=== PATIENT | female | born 1980 | race Caucasian/White ===

== ENCOUNTER 2024-08-06 17:55 | Emergency (ER) | payer OTHER, SELFPAY ==
[2024-08-06 18:12] VITALS: BP 116/64; PULSE 80; RESP 16; TEMP 37.2; O2SAT 100
--- NOTE | 2024-08-06 18:12 | ED.URI ---
HPI - URI/Sore Throat General Chief Complaint: Upper Respiratory Infection Stated Complaint: Chest Tightness, Cough, No Voice Time Seen by Provider: 08/06/24 18:12 Source: patient Mode of arrival: ambulatory Limitations: no limitations History of Present Illness HPI Narrative: 44-year-old female presented for complaint of cough and chest congestion and tightness with cough for 2 days. She also states she lost her voice yesterday. Endorses 2 weeks of nasal congestion and drainage, which she says is improving. Denies sob, wheezing, n/v/d/f/c. Taking Dayquil. Reports exposure to strep and covid. Related Data Home Medications ?Medication ?Instructions ?Recorded ?Confirmed ?Last Taken ?Type plecanatide 3 mg tablet (Trulance) mg 08/06/24 Unknown History semaglutide (weight loss) 2.4 mg subcut 08/06/24 Unknown History mg/0.75 mL subcutaneous pen injector (Wegovy) Allergies Allergy/AdvReac Type Severity Reaction Status Date / Time Penicillins Allergy Mild Hives Verified 08/06/24 18:20 Review of Systems Review of Systems: CONSTITUTIONAL: Denies body aches, fever, chills, or sweats. EYES: Denies visual changes, redness, or discharge. ENT: reports rhinorrhea, congestion, sore throat, otalgia. CARDIOVASCULAR: Denies chest pain, palpitations, or edema. RESPIRATORY: Reports cough, denies sob, wheezing. GASTROINTESTINAL: Denies abdominal pain, nausea, vomiting, or diarrhea. MUSCULOSKELETAL: Denies back pain, joint pain, or myalgia. NEUROLOGIC: Denies headache, numbness, tingling, or weakness. PSYCH: Denies depression or anxiety. All systems reviewed & are unremarkable except as noted in HPI and below PMFSH Comments At time of signature, I have reviewed and agree with nursing past medical, surgical, social and family history unless otherwise noted. Please see nursing chart for further information. There is no relevant family history pertinent to the presenting complaint Exam Narrative: GENERAL: Well-appearing, in no acute distress. EYES: EOMI. No redness or drainage. Conjunctivae normal. ENT: Mucous membranes pink and moist. No rhinorrhea. Hoarse voice. TMs normal bilaterally. Throat normal, tonsils absent. Uvula midline. NECK: Normal AROM. Supple. CHEST: No respiratory distress. Lungs clear to all oswald. HEART: Regular rate and rhythm. No murmur appreciated. ABDOMEN: Soft, nontender, nondistended, normal active bowel sounds. SKIN: Warm, dry, Capillary refill normal. Normal skin turgor. NEURO: Alert and oriented x3. Gait steady. Course Course Emergency Course: Patient is aware of diagnosis, understands and agrees to treatment plan. Anticipatory guidance given. Patient agrees to follow-up as directed and is aware of reasons to seek care at the emergency department. Portions of this record may have been created with voice recognition software Level of Care: Express Care Visit Vital Signs Vital signs: Vital Signs Temperature 98.9 F 08/06/24 18:12 Pulse Rate 80 08/06/24 18:12 Respiratory Rate 16 08/06/24 18:12 Blood Pressure 116/64 08/06/24 18:12 Pulse Oximetry 100 08/06/24 18:12 Temperature 98.9 F 08/06/24 18:12 Pulse Rate 80 08/06/24 18:12 Respiratory Rate 16 08/06/24 18:12 Blood Pressure 116/64 08/06/24 18:12 Pulse Oximetry 100 08/06/24 18:12 MDM - URI/Sore Throat MDM Narrative Medical decision making narrative: Discussed physical exam findings; neg flu, covid and strep. Advised supportive measures and signs/symptoms to go to the ER. Pt is appropriate for outpt treatment and f/u. Differential Diagnosis Differential diagnosis: Likely upper respiratory infection, otitis media, sinusitis, viral infection, bronchitis, influenza and pharyngitis Discharge Plan Discharge Clinical Impression: Upper respiratory infection Patient Disposition: Home, Self-Care Condition: Stable Instructions: Antibiotic Form Additional Instructions: Flu and COVID negative. Rapid strep swab was negative today You will be notified in a few days if the culture comes back positive for strep, and appropriate antibiotics will be called in at that time. if symptoms are due to a viral illness, it is not treated with antibiotics. Viral symptoms can be present for up to 10-14 days. Recommend Flonase spray and Zyrtec for sinus congestion Cough syrup may cause drowsiness; avoid driving or take it at night time. Tylenol every 8 hours as needed for pain/fever Soft foods, cool liquids, warm tea. Gargle with warm saltwater twice a day. Chloraseptic spray and throat lozenges. Rest and stay hydrated. --Follow up with your PCP --Go to the ER immediately if you cannot swallow your saliva, trouble breathing/wheezing, throat swelling, pain is persistent and severe Patient Language: Vietnamese Prescriptions: New methylprednisolone [Medrol (Hussein)] 4 mg tablets,dose pack See Rx Instructions .ROUTE .COMPLEX Qty: 21 0RF Rx Instructions: orally per package directions No Action Trulance 3 mg tablet Wegovy 2.4 mg/0.75 mL pen injector SUBCUT Follow-up/Referrals: Jose,MD Lei [Primary Care Provider] -
[2024-08-06 18:42] LABS: EDCOVIDSCREEN Negative (Negative); EDINFLUASCREEN Negative (Negative); EDINFLUBSCREEN Negative (Negative); EDSTREPNEGPOS1 Negative (Negative)
--- OUTSIDE RECORDS SUMMARY | 2024-08-13 22:21 | XMS_ITS | Continuity of Care Document ---
Author Organization [place] - [facility], [facility] Address [address] [place] [address] Care Team Providers Care Home Demonstrator Name Role Phone LEI GARCIA Primary Care Provider Assessment No assessment recorded. Plan of Treatment Reminders Order Date Submit Date Provider Last Modified By Organization Details Last Modified Time Details Appointments Follow Up 15 2024 11:00A Sid Garcia MD Not available Not available Not available Lab pap, IG + HR HPV [address] ([facility]), [address] [place], [address], 07/21/2024 09:15:31 Referral None recorded. Procedures None recorded. Surgeries None recorded. Imaging MAMMO, screening , digital, bilateral - Please call pt to schedule 2023 024 [facility], [address] [place], [address], 07/14/2024 15:28:44 Medication Orders None recorded. Patient TargetsNo targets recorded. Patient InstructionsNo instructions recorded. Reason for Referral None Reported. 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 Active 2021 Not Available [facility] 3 01:24:35 Chronic idiopathic constipation 83439712 Active 2021 Not Available [facility] 3 01:24:35 Fatigue 92163413 Active 2022 Lei Garcia MD [address], [place], [address] , [employer] [facility] [employer] [facility] 3 10:45:01 Sleep apnea 76744717 Active 2022 Lei Garcia MD [address], [place], [address] , [employer] [facility] 3 10:09:41 Overweight 003544066 Active 2023 Lei Garcia MD [address], [place], [address] , [employer] [facility] 4 11:39:42 Fracture of foot 16826901 Active 2023 Lei Garcia MD [address], [place], [address] , [employer] [facility] 4 10:40:11 Obesity 868721189 Active 2023 Lei Garcia MD [address], [place], [address] , [employer] [facility] 4 11:43:45 Recurrent skin infection 741124355 Active 2023 Lei Garcia MD [address], [place], [address] , [employer] [facility] 4 11:52:24 Dysmenorrhea 950538366 Active 2023 MABEL Cortes [address] [facility], [facility] [address], [place], [address] , [facility] [employer] [facility] 4 10:23:29 Problem Notes None recorded. Procedures Surgical History Date Name Laterality Status Provider Name and Address Organization Details Recorded Time 07/22/20 TONSILLECTOMY (SURG) completed Not Available [facility] 10/08/2022 01:26:17 07/09/20 22 Date of Last Mammogram completed Lei Garcia MD [address] [facility], [facility] [address], [place], [address], [facility] [employer] [facility] 05/04/2023 10:44:22 08/09/19 12 Gastric Bypass completed Not Available [facility] 10/08 01:23:33 08/09/19 04 Gallbladder Surgery completed Not Available [facility] 10/08/2022 01:23:33 Imaging Results None recorded. Procedure Notes None recorded. Medical Equipment None Reported. Allergies Allergen ID Allergen Name Allergen Category Reaction Reaction Severity Criticality Documentation Date Start Date Code Code System Note Provider Name and Address Organization Details Recorded Time 74464 Wellbutri n medicatio n rash severe Not available 10/08/2022 10128 RxNorm Not Available [facility] 3 01:26:09 78567 Medicinal product containin g penicilli n and acting as antibacte rial agent (product) medicatio n hives severe Not available 10/08/2022 15802 05 SNOMED Not Available [facility] 3 01:26:09 19335 amoxicill in medicatio n hives severe Not available 10/08/2022 723 RxNorm Not Available [facility] 3 01:26:10 61966 amoxicill in trihydrat e medicatio n Not available Not available Not available 10/29/2023 42422 8 RxNorm Alicia Lan RN [facility], [facility] [employer] [facility] 4 09:00:40 Medications Name Sig Start Date Stop Date Status Note LastModified by Organization Details LastModified Time Prescriptio n - Prior Authorizati on Request 02/16 completed Not Available Not Available Not Available covid-19 at home tst kt 2pk(walgns) TEST DIRECTED 02/23 completed Not Available Not Available Not Available azithromyci n 250 mg tablet TAKE 2 TABLETS BY MOUTH TODAY, THEN TAKE 1 TABLET DAILY FOR 4 DAYS DIRECTED 10/28 completed Not Available Not Available Not Available phentermine 15 mg capsule Take 1 capsule every day by oral route in the morning. 06/18 completed Not Available Not Available Not Available phentermine 37.5 mg tablet Take 1 tablet every day by oral route in the morning for 30 days. 02/23 completed Not Available Not Available Not Available ciprofloxac in 500 mg tablet TAKE 1 TABLET BY MOUTH TWICE DAILY 05/07 completed Not Available Not Available Not Available phentermine 30 mg capsule Take 1 capsule every day by oral route in the morning for 30 days. 10/06 completed Not Available Not Available Not Available oxycodone-a cetaminophe n 5 mg-325 mg tablet TAKE 1-2 TABLETS BY MOUTH EVERY 4 (FOUR) HOURS NEEDED FOR PAIN. 02/16 completed Not Available Not Available Not Available cephalexin 500 mg capsule TAKE 1 CAPSULE BY MOUTH TWICE DAILY FOR 10 DAYS 10/06 completed Not Available Not Available Not Available cyanocobala min (vit B-12) 1,000 mcg/mL injection solution Inject 1 mL every month by subcutane ous route as directed. 2023 active pt david well Not Available Not Available Not Available ferrous sulfate 325 mg (65 mg iron) tablet TAKE 1 TABLET BY MOUTH TWICE DAILY AFTER A MEAL 2023 active Not Available Not Available Not Avai lable docusate sodium 100 mg capsule Take 1 capsule twice a day by oral route as directed for 90 days. 2023 active Not Available Not Available Not Avai lable polyethylen e glycol 3350 17 gram/dose oral powder Take 17 g every day by oral route as directed for 90 days. 07/14 completed Not Available Not Available Not Available diazepam 5 mg tablet TAKE 1 TABLET ORALLY EVERY 6 HOURS BEFORE PROCEDURE FOR 1 DAY. 05/22 completed Not Available Not Available Not Available hydrocodone 7.5 mg-acetamin ophen 325 mg/15 mL oral solution 10/06 completed Not Available Not Available Not Available nitrofurant oin monohydrate /macrocryst als 100 mg capsule Take 1 capsule every 12 hours by oral route as directed for 7 days. 06/09 completed Not Available Not Available Not Available Iron with C 04/28 completed Not Available Not Available Not Available Saxenda 3 mg/0.5 mL (18 mg/3 mL) subcutaneou s pen injector Inject 0.6 mg every day by subcutane ous route as directed for 30 days. 04/28 completed Not Available Not Available Not Available Trulance 3 mg tablet TAKE 1 TABLET BY MOUTH EVERY DAY DIRECTED active Not Available Not Available No t Available ID NOW COVID-19 Test Kit TEST DIRECTED TODAY 05/07 completed Not Available Not Available Not Available BinaxNOW COVID-19 Ag Self Test kit TEST DIRECTED TODAY 05/07 completed Not Available Not Available Not Available Wegovy 2.4 mg/0.75 mL subcutaneou s pen injector INJECT 2.4 MG SUBCUTANE OUSLY ONCE WEEKLY DIRECTED active Not Available Not Available No t Available Wegovy 1.7 mg/0.75 mL subcutaneou s pen injector 11/17 completed Not Available Not Available Not Available Wegovy 1 mg/0.5 mL subcutaneou s pen injector 05/19 completed Not Available Not Available Not Available Wegovy 0.25 mg/0.5 mL subcutaneou s pen injector 04/28 completed Not Available Not Available Not Available Wegovy 0.5 mg/0.5 mL subcutaneou s pen injector 05/19 completed Not Available Not Available Not Available Vitals Date Recorded Body height Body mass index (BMI) Body weight Body temperature Heart rate Respiratory rate Oxygen saturation Oxygen saturation in Arterial blood by Pulse oximetry Systolic blood pressure Diastolic blood pressure Provider Name and Address Organization Details Last Updated DateTime 4 162.56 cm 24.2 kg/m2 93298.2 2 g 97.2 [degF] 72 /min 20 /min 98 % 98 % 92 mm[Hg] 60 mm[Hg] Alicia Lan RN [place] [employer] [facility] 09:56:45 Social History Question Answer Notes LastModified by Organizat ion Details LastModified Time Tobacco Smoking Status Never Smoker [facility]order[facility] 08/19/2023 11:04:45 Do You Have An Advance Directive? No [id number] Information not available 10/08/2022 What Is Your Level Of Alcohol Consumption? None [id number] Information not available 10/08/2022 Do You Wear A Helmet When Biking? No Information not available 08/19/2023 What Is Your Level Of Caffeine Consumption? Heavy [id number] Information not available 10/08/2022 In The 14 Days Before Symptom Onset, Have You Had Close Contact With A Laboratory-confi rmed COVID-19 While That Case Was Ill? No Information not available 08/19/2023 In The 14 Days Before Symptom Onset, Have You Had Close Contact With A Person Who Is Under Investigation For COVID-19 While That Person Was Ill? No Information not available 08/19/2023 Are You Currently Employed? Yes Information not available 07/14/2024 What Type Of Diet Are You Following? 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 No Information not available 08/19/2023 What Is The Fluoride Status Of Your Home? Unknown Information not available 08/19/2023 Are There Any Guns Present In Your Home? No Information not available 08/19/2023 Do You Use Insect Repellent Routinely? No Information not available 08/19/2023 Where Do You Live? SingleLevelHouse Information not available 08/19/2023 Do You Have A Medical Power Of Tower Equipment Repairer? No Information not available 08/19/2023 How Many Children Do You Have? 2 Information not available 07/14/2024 Do You Have Any Pets? Yes Information not available 08/19/2023 What Is Your Relationship Status? [id number] Information not available 10/08/2022 Do You Use Your Seat Belt Or Car Seat Routinely? Yes Information not available 08/19/2023 Do You Have Smoke And Carbon Monoxide Detectors In Your Home? Yes Information not available 08/19/2023 Are You Passively Exposed To Smoke? No Information not available 08/19/2023 Are There Any Smokers In Your House? No Information not available 08/19/2023 Do You Participate In Social [place]? No Information not available 08/19/2023 Do You Feel Stressed (tense, Restless, Nervous, Or Anxious, Or Unable To Sleep At Night)? [id number] Information not available 08/19/2023 Do You Use Any Illicit Or Recreational Drugs? No Information not available 08/19/2023 Do You Use Sunscreen Routinely? No Information not available 08/19/2023 Has Tobacco Cessation Counseling Been Provided? No Information not available 08/19/2023 Have You Recently Traveled Abroad? No Information not available 08/19/2023 Are You Currently In School? No Information not available 08/19/2023 Do You Have Any Dietary Restrictions? No Information not available 08/19/2023 Do You Or Have You Ever Used Any Other Forms Of Tobacco Or Nicotine? No Information not available 08/19/2023 Sex: Female Functional Status Question Answer Note LastModified by Organizat ion Details LastModified Time What is your exercise level? None [id number] Information not available 10/08/2022 Mental Status None recorded. Family History Relationship Description Onset Age of this Age Resolved Age Notes LastModified by Organization Details LastModified Time Son Tonsillectom y [email or web address] Not available 06/12 11:22:20 Daughter Tonsillectom y [email or web address] Not available 06/12 11:22:20 Sister Tonsillectom y [email or web address] Not available 06/12 11:22:20 Sister Tonsillectom y [email or web address] Not available 06/12 11:22:21 Father Enlarged tonsil [email or web address] Not available 06/12 11:22:21 Mother Malignant tumor of breast 57 58 [id number] Not available 10/08/2022 01:23:34 Paternal Aunt Malignant tumor of breast [id number] Not available 06/12 11:22:21 Paternal Grandfather Malignant tumor of colon [email or web address] Not available 06/12 11:22:21 Maternal Grandfather Malignant tumor of colon [email or web address] Not available 06/12 11:22:21 Paternal Grandmother Myocardial infarction 45 45 [id number] Not available 10/08/2022 01:23:35 Medical History Condition Response MRSA N SLEEP APNEA Y ALLERGIES/HAYFEVER N LUNG DISEASE/DISORDER N HISTORY OF DRUG ABUSE N INSOMNIA N COPD N RADIATION / CHEMOTHERAPY N HIGH CHOLESTEROL / HYPERLIPIDEMIA N HYPERTHYROIDISM N BLOOD DISEASES N EAR OR HEARING PROBLEMS N HYPOTHYROIDISM N SHINGLES N DEPRESSION (INCLUDING POST ) N HAVE YOU BEEN HOSPITALIZED OR SEEN IN [facility] ER IN THE PAST YEAR ? N STROKE/TIA N ULCERS N OBESITY Y ANEURYSM N HISTORY WITH COMPLICATIONS WITH ANESTHES IA ? N USE OF BLOOD THINNERS N NO SIGNIFICANT PAST MEDICAL HISTORY N DIABETES, TYPE N PARATHYROID DISEASE N ENT N SEASONAL ALLERGIES N HEARTBURN / REFLUX N HEPATITIS / LIVER DISEASE N SLEEP DISORDER N SEIZURES/EPILEPSY N HEADACHES/MIGRAINES N CHF N PACEMAKER N DIZZINESS N HEART DISEASE/HEART PROBLEMS N AIDS/HIV N FRACTURES N HYPERTENSION N CANCER: SPECIFY N TOURETTE'S N ANXIETY DISORDER Y BLOOD TRANSFUSION N ANEMIA/BLOOD DISORDER N ANESTHESIA COMPLICATIONS N CHRONIC EAR INFECTIONS N AUTOIMMUNE DISEASE N TUBERCULOSIS N Gynecological History Statement/Question Response Abnormal Pap N Flow Heavy Date of Last Mammogram 07/09/2022 Date of LMP 06/27/2024 STIs/STDs N HPV Vaccine N Date of Last Pap 06/30/2022 Duration of Flow (days) Most Recent Mammogram Current Control Method Tubal Ligat ion Breast Problems none Date of Last Colonoscopy Frequency of Cycle (Q days) Sexually Active? Y Menses Monthly Y Date of Last Pap Smear Discharge none N Obstetrics History GPAL:G 4 P 0 0 0 3 Type Value Living 3 Total 4 Immunizations Vaccine Type Date Status Note Provider Nam e and Address Organization Details Recorded Time Influenza, split virus, quadrivalent, PF 05/07/2022 completed Not Available [employer] 01:26:03 Influenza, split virus, quadrivalent, PF 05/04/2023 completed Hira cline, [facility] [employer] [facility] 05/04/2023 16:57:47 Influenza, split virus, trivalent, PF 05/22/2024 completed Hira Grier null, [facility] [employer] [facility] 05/22/2024 16:46:39 Past Encounters Encounter ID Performer Location Encounter Start Date Encounter Closed Date Diagnosis/Indication Diagnosis SNOMED-CT Code Diagnosis ICD10 Code [id number] MABEL Cortes [facility] [address] [address] 07/14/2024 09:45:21 07/14/2024 10:31:23 Gynecologic examination 94867046 Z01.419 Screening mammography 24 689704 Z12.31 Dysmenorrhea 142767694 N 94.6 Health Concerns Section Related Observation LastModified by Organization Detai ls LastModified Time None Recorded Concern Status LastModified by Organization Details LastModified Time None Recorded Payers Encounter Date Sequence Insurance Name Policy Number Policy Price Covered Member ID Price Member ID Guarantor Name 07/14/2024 1 [employer] - OPEN ACCESS Christina Pinto [id number] Christina Pinto Notes Date Note Type Note Provider Name and Address Organization Details Recorded Time 07/14/2024 text/html Pap/PelvicReport ed bypatient.Context: appt for screening pap/pelvic/breast exam; no gynecologic complaints Associated Factors:no risk factor for cervical cancer; no history of JLUIS II/III; no abnormal pap smears; at least three pap smears in past 7 years; low risk sexual history; no RAMIRO exposure;needs mammogram screening MABEL Cortes [address] [address], [place], [address], [facility] 07/14/2024 10:25:24 OBGyn Episode No OBEpisode recorded.
--- OUTSIDE RECORDS SUMMARY | 2024-08-13 22:21 | XMS_ITS | Data Portability ---
Author Organization [place] - [employer], Main Office [place] [address] [place] [address] Care Team Providers Care Staff Nurse Midwife Name Role Phone LEI GARCIA Primary Care Provider Assessment Encounter Date Assessment Date Assessment LastModified by Organization Details LastModified Time 05/22/2024 05/22/2024 44 yo F with - WELL ADULT VISIT - CHRONIC CONSTIPATION - ANEMIA, improved - VIT B12 DEFICIENCY - CHRONIC CONSTIPATION - SNORING & FATIGUE, R/o AUDELIA - MICROSCOPIC HEMATURIA, chronic - OVERWEIGHT - H/O OBESITY I - H/O GASTRIC BYPASS (2011) - H/O LT FOOT FRACTURE (01/30) Annual labs: 05/05/23. Annual labs: 05/08/22. Wt: 184(05/21/22) - 182(06/18/22) - 181(07/20/22) - 179(10/06/22) [Pt stopped] D/w pt in detail about her conditions, recent labs and further plan of care. Will do routine labs, x-ray. Pt declined for HCG. Will refer pt to GI. All meds verified with pt. Meds as directed. Good liquid and fiber intake explained in detail. Diet and exercise explained in detail. Educated about different options for her. Cont f/u with Derrick Man at [place] as per schedule. Cont f/u with GI as per schedule. Cont f/u with ENT as per schedule. Offered to refer to Uro; but pt declined. HM: WWE - 06/30/22, normal. Cont f/u with MENTAL HEALTH NURSE PRACTITIONER/Gyne as per schedule. Mammo - 07/22/22, normal. Ordered again. Colonoscopy - Referred. Flu - 05/22/24. Tdap - 2017. F/u in 2-3 weeks. Annual labs in 06/02. [email or web address] Not available 05/22/2024 14:33:38 06/12/2024 06/12/2024 44 yo F with - RECURRENT SKIN INFECTIONS - CHRONIC CONSTIPATION - ANEMIA, improved - VIT B12 DEFICIENCY - SNORING & FATIGUE, R/o AUDELIA - MICROSCOPIC HEMATURIA, chronic - OVERWEIGHT - H/O OBESITY I - H/O GASTRIC BYPASS (2011) - H/O LT FOOT FRACTURE (01/30) Annual labs: 06/05/24. X-ray abdo: 05/22/24. Annual labs: 05/05/23. Annual labs: 05/08/22. Wt: 184(05/21/22) - 182(06/18/22) - 181(07/20/22) - 179(10/06/22) [Pt stopped] D/w pt in detail about her conditions, recent labs and further plan of care. Will refer pt to GI & Derm. All meds verified with pt. Meds as directed. Good liquid and fiber intake explained in detail. Diet and exercise explained in detail. Educated about different options for her. F/u with Derm as per schedule. Cont f/u with Derrick Man at [place] as per schedule. Cont f/u with GI as per schedule. Cont f/u with ENT as per schedule. Advised to refer to Uro; but pt declined. HM: WWE - 06/30/22, normal. Cont f/u with MENTAL HEALTH NURSE PRACTITIONER/Gyne as per schedule. Mammo - 07/22/22, normal. Ordered again. Colonoscopy - Referred to GI again. Flu - 05/22/24. Tdap - 2017. F/u in 3-4 months. Annual labs in 06/02. [email or web address] Not available 06/12/2024 12:01:58 Plan of Treatment Reminders Order Date Submit Date Provider Last Modified By Organization Details Last Modified Time Details Appointments Follow Up 15 2024 11:00A M Lei Garcia MD Not available Not available Not available Lab uric acid, serum or plasma 2023 024 [email or web address] [facility] (Lab), [address] [place], [address], 05/29/2024 07:53:05 iron + TIBC + ferritin, serum [address] (Lab), [address] [place], [address], 05/29/2024 07:53:04 CBC w/ auto diff [address] (Lab), [address] [place], [address], 05/29/2024 07:53:03 CMP, serum or plasma [address] (Lab), [address] [place], [address], 05/29/2024 07:53:04 lipid panel, serum [address] (Lab), [address] [place], [address], 05/29/2024 07:53:04 TSH, serum, reflex free T4 [address] (Lab), [address] [place], [address], 05/29/2024 07:53:04 urinalysi s complete, reflex culture [address] (Lab), [address] [place], [address], 05/29/2024 07:53:04 magnesium , serum or plasma [address] (Lab), [address] [place], [address], 05/29/2024 07:53:05 vitamin B12 + folate, serum or blood [address] (Lab), [address] [place], [address], 05/29/2024 07:53:04 HbA1c (hemoglob in A1c), blood 2023 024 [email or web address] [facility] (Lab), [address] [place], [address], 06/06/2024 10:31:36 pap, IG + HR HPV 2023 024 [facility] (Lab), [address] [place], [address], 07/21/2024 09:15:31 Referral gastroent erologist referral - Please call patient to schedule an appointme nt. Thank you. 2023 024 CARSON Benson MD, [address] [facility], [place], [address], 08/11/2024 04:02:49 dermatolo gist referral - Please call patient to schedule an appointme nt. Thank you. 2023 024 [email or web address] [facility], [address], [place], [address], 07/13/2024 09:17:44 Procedures None recorded. Surgeries None recorded. Imaging MAMMO, screening , bilateral - Chronic constipat ion too. [email or web address] [place] [address], [address] [place] [address] , [place], [address], 06/05/2024 08:54:03 XR, abdomen, 2 view - Chronic constipat ion and abdominal bloating [email or web address] [place] [address] , [place], [address], 05/29/2024 08:50:14 MAMMO, screening , digital, bilateral - Please call pt to schedule 2023 024 JASKARAN [facility], [address], [place], [address], 07/14/2024 15:28:44 Medication Orders cyanocoba son (vit B-12) 1,000 mcg/mL injection solution 2023 024 [email or web address] Not available 04/12/2024 14:57:23 ferrous sulfate 325 mg (65 mg iron) tablet 2023 [facility]/Pharmacy #[id number], [address] [place] [address], [address], 05/22/2024 14:23:59 docusate sodium 100 mg capsule 2023 [facility]/Pharmacy #[id number], [address] [place] [address], [address], 05/22/2024 14:23:18 polyethyl genaro glycol 3350 17 gram/dose oral powder 2023 024 [facility]/Pharmacy #[id number], [address] [place] [address], [address], 07/14/2024 09:54:08 Wegovy 2.4 mg/0.75 mL subcutane ous pen injector 2023 024 [facility]/Pharmacy #[id number], [address] [place] [address], [address], 05/22/2024 14:23:21 cyanocoba son (vit B-12) 1,000 mcg/mL injection solution 2023 024 [email or web address] Not available 06/12/2024 14:07:23 docusate sodium 100 mg capsule 2023 024 [facility]/Pharmacy #[id number], [address], [address], 06/12/2024 11:50:36 polyethyl genaro glycol 3350 17 gram/dose oral powder 2023 024 [facility]/Pharmacy #[id number], [address] [place] [address], [address], 07/14/2024 09:54:08 Trulance 3 mg tablet 2023 [facility]/Pharmacy #[id number], [address] [place] [address], [address], 06/12/2024 11:50:34 Wegovy 2.4 mg/0.75 mL subcutane ous pen injector 2023 [facility]/Pharmacy #[id number], [address] [facility], [place], [address], 06/12/2024 11:50:35 ferrous sulfate 325 mg (65 mg iron) tablet 2023 [facility]/Pharmacy #[id number], [address] [place] [address], [address], 06/12/2024 11:50:37 Patient TargetsNo targets recorded. 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 Thank you. Referring Physician: Lei Garcia [facility], Encounter Date: 06/12/2024 Needle Loom Tender Referral for R ecurrent skin infection Please call patient to schedule an appointment. Thank you. Referring Physician: [facility], Encounter Date: 06/12/2024 Results Created Date Observation Date Name Description Value Unit Range Abnormal Flag Note LastModifiedBy Organization Detail LastModifiedTime 06/05/20 24 06/05/2024 CBC/C OMPLE TE BLD COUNT W/DIF F white blood cells 5.4 x10'3 /uL 4.2-10 .8 Not Available [facility] (Lab) [address] [place], [address], 06/05/2024 14:12:44 06/05/2006/05/2024 CBC/C OMPLE TE BLD COUNT W/DIF F red blood cells 4.07 x10'6 /uL 3.80-5 .20 Not Available [facility] (Lab) [address] [place], [address], 06/05/2024 14:12:44 06/05/2006/05/2024 CBC/C OMPLE TE BLD COUNT W/DIF F hemoglobin 12.1 g/dL 12.0-1 5.6 Not Available [facility] (Lab) [address] [place], [address], 06/05/2024 14:12:44 06/05/2006/05/2024 CBC/C OMPLE TE BLD COUNT W/DIF F hematocrit 38.0 % 35.7-4 5.7 Not Available [facility] (Lab) [address] [facility] [place], [address], 06/05/2024 14:12:44 06/05/2006/05/2024 CBC/C OMPLE TE BLD COUNT W/DIF F mean red cell volume 93.4 fL 82.0-9 9.0 Not Available [facility] (Lab) [address] [place], [address], 06/05/2024 14:12:44 06/05/2006/05/2024 CBC/C OMPLE TE BLD COUNT W/DIF F mean red cell hemoglobin 29.7 pg 27.0-3 3.0 Not Available [facility] (Lab) [address] [place], [address], 06/05/2024 14:12:44 06/05/2006/05/2024 CBC/C OMPLE TE BLD COUNT W/DIF F mean RBC HGB concentratio n 31.8 g/dL 31.0-3 6.0 Not Available [facility] (Lab) [address] [place], [address], 06/05/2024 14:12:44 06/05/2006/05/2024 CBC/C OMPLE TE BLD COUNT W/DIF F red cell distribution width 13.2 % 11.8-1 5.5 Not Available [facility] (Lab) [address] [place], [address], 06/05/2024 14:12:44 06/05/2006/05/2024 CBC/C OMPLE TE BLD COUNT W/DIF F platelets 254 x10'3 /uL 150-40 0 Not Available [facility] (Lab) [address] [place], [address], 06/05/2024 14:12:44 06/05/2006/05/2024 CBC/C OMPLE TE BLD COUNT W/DIF F mean platelet volume 12.6 fL 9.0-12 .4 high Not Available [facility] (Lab) [address] [place], [address], 06/05/2024 14:12:44 06/05/2006/05/2024 CBC/C OMPLE TE BLD COUNT W/DIF F neutrophils 53.1 % 39.0-7 2.0 Not Available [facility] (Lab) [address] [place], [address], 06/05/2024 14:12:44 06/05/2006/05/2024 CBC/C OMPLE TE BLD COUNT W/DIF F lymphocytes 37.9 % 16.0-4 7.0 Not Available [facility] (Lab) [address] [place], [address], 06/05/2024 14:12:44 06/05/2006/05/2024 CBC/C OMPLE TE BLD COUNT W/DIF F monocytes 6.1 % 5.0-12 .0 Not Available [facility] (Lab) [address] [place], [address], 06/05/2024 14:12:44 06/05/2006/05/2024 CBC/C OMPLE TE BLD COUNT W/DIF F eosinophils 2.0 % 1.0-7. 0 Not Available [facility] (Lab) [address] [place], [address], 06/05/2024 14:12:44 06/05/2006/05/2024 CBC/C OMPLE TE BLD COUNT W/DIF F basophils 0.7 % 0.0-2. 0 Not Available [facility] (Lab) [address] [place], [address], 06/05/2024 14:12:44 06/05/2006/05/2024 CBC/C OMPLE TE BLD COUNT W/DIF F immature granulocytes 0.2 % 0.00-0 .50 Not Available [facility] (Lab) [address] [place], [address], 06/05/2024 14:12:44 06/05/2006/05/2024 CBC/C OMPLE TE BLD COUNT W/DIF F neutrophils, absolute count 2.89 x10'3 /uL 1.5-8. 0 Not Available [facility] (Lab) [address] [place], [address], 06/05/2024 14:12:44 06/05/2006/05/2024 CBC/C OMPLE TE BLD COUNT W/DIF F lymphocytes, absolute count 2.06 x10'3 /uL 1.07-3 .43 Not Available [facility] (Lab) [address] [place], [address], 06/05/2024 14:12:44 06/05/2006/05/2024 CBC/C OMPLE TE BLD COUNT W/DIF F monocytes, absolute count 0.33 x10'3 /uL 0.29-0 .99 Not Available [facility] (Lab) [address] [place], [address], 06/05/2024 14:12:44 06/05/2006/05/2024 CBC/C OMPLE TE BLD COUNT W/DIF F eosinophils, absolute count 0.11 x10'3 /uL 0.02-0 .53 Not Available [facility] (Lab) [address] [place], [address], 06/05/2024 14:12:44 06/05/2006/05/2024 CBC/C OMPLE TE BLD COUNT W/DIF F basophils, absolute count 0.04 x10'3 /uL 0.01-0 .08 Not Available [facility] (Lab) [address] [place], [address], 06/05/2024 14:12:44 06/05/2006/05/2024 CBC/C OMPLE TE BLD COUNT W/DIF F immature granulocytes ,absolute 0.01 x10'3 /uL 0.00-0 .05 Not Available [facility] (Lab) [address] [place], [address], 06/05/2024 14:12:44 06/05/2006/05/2024 CBC/C OMPLE TE BLD COUNT W/DIF F nucleated red blood cells 0.0 % -0 Not Available [facility] (Lab) [address] [place], [address], 06/05/2024 14:12:44 06/05/2006/05/2024 CBC/C OMPLE TE BLD COUNT W/DIF F NRBC# 0.00 x10'3 /uL Not Available [facility] (Lab) [address] [place], [address], 06/05/2024 14:12:44 06/05/2006/05/2024 URINA LYSIS COMPL ETE/I RIS W/RFX color YELLOW Not Available [facility] (Lab) [address] [facility] [place], [address], 06/05/2024 14:24:48 06/05/2006/05/2024 URINA LYSIS COMPL ETE/I RIS W/RFX appear EXTRA TURBID abnormal Not Available [facility] (Lab) [address] [place], [address], 06/05/2024 14:24:48 06/05/2006/05/2024 URINA LYSIS COMPL ETE/I RIS W/RFX specific gravity 1.028 1.001- 1.030 Not Available [facility] (Lab) [address] [place], [address], 06/05/2024 14:24:48 06/05/2006/05/2024 URINA LYSIS COMPL ETE/I RIS W/RFX pH 5.5 pH_un its 5.0-9. 0 Not Available [facility] (Lab) [address] [place], [address], 06/05/2024 14:24:48 06/05/2006/05/2024 URINA LYSIS COMPL ETE/I RIS W/RFX leukocytes NEGATI VE dayami/u L negati ve- Not Available [facility] (Lab) [address] [place], [address], 06/05/2024 14:24:48 06/05/2006/05/2024 URINA LYSIS COMPL ETE/I RIS W/RFX nitrite NEGATI VE negati ve- Not Available [facility] (Lab) [address] [place], [address], 06/05/2024 14:24:48 06/05/2006/05/2024 URINA LYSIS COMPL ETE/I RIS W/RFX protein 20 mg/dL negati ve- abnormal Not Available [facility] (Lab) [address] [place], [address], 06/05/2024 14:24:48 06/05/2006/05/2024 URINA LYSIS COMPL ETE/I RIS W/RFX glucose NORMAL mg/dL normal - Not Available [facility] (Lab) [address] [place], [address], 06/05/2024 14:24:48 06/05/2006/05/2024 URINA LYSIS COMPL ETE/I RIS W/RFX ketones NEGATI VE mg/dL negati ve- Not Available [facility] (Lab) [address] [place], [address], 06/05/2024 14:24:48 06/05/2006/05/2024 URINA LYSIS COMPL ETE/I RIS W/RFX urobilinogen NORMAL mg/dL normal - Not Available [facility] (Lab) [address] [place], [address], 06/05/2024 14:24:48 06/05/2006/05/2024 URINA LYSIS COMPL ETE/I RIS W/RFX bilirubin NEGATI VE mg/dL negati ve- Not Available [facility] (Lab) [address] [place], [address], 06/05/2024 14:24:48 06/05/2006/05/2024 URINA LYSIS COMPL ETE/I RIS W/RFX blood 0.5 mg/dL negati ve- abnormal Not Available [facility] (Lab) [address] [place], [address], 06/05/2024 14:24:48 06/05/2006/05/2024 URINA LYSIS COMPL ETE/I RIS W/RFX white blood cells 0-8 /i??h pfi?? 0-8 Not Available [facility] (Lab) [address] [place], [address], 06/05/2024 14:24:48 06/05/20 24 06/05/2024 URINA LYSIS COMPL ETE/I RIS W/RFX red blood cells 11-20 /i??h pfi?? 0-4 abnormal Not Available [facility] (Lab) [address] [place], [address], 06/05/2024 14:24:48 06/05/2006/05/2024 URINA LYSIS COMPL ETE/I RIS W/RFX bacteria NONE Not Available [facility] (Lab) [address] [place], [address], 06/05/2024 14:24:48 06/05/2006/05/2024 URINA LYSIS COMPL ETE/I RIS W/RFX mucous OCCASI ONAL /i??l pfi?? abnormal Not Available [facility] (Lab) [address] [place], [address], 06/05/2024 14:24:48 06/05/2006/05/2024 URINA LYSIS COMPL ETE/I RIS W/RFX squamous epithelial PACKED FIELD /i??l pfi?? abnormal Not Available [facility] (Lab) [address] [place], [address], 06/05/2024 14:24:48 06/05/2006/05/2024 IRON/ TIBC PANEL total iron binding capacity 328 mcg/d L 265-47 5 Not Available [facility] (Lab) [address] [place], [address], 06/05/2024 14:43:15 06/05/20 24 06/05/2024 IRON/ TIBC PANEL % transferrin saturation 16 % 20-55 low Not Available [facility] (Lab) [address] [place], [address], 06/05/2024 14:43:15 06/05/2006/05/2024 IRON/ TIBC PANEL unsaturated iron bind capacity 276 mcg/d L 126-38 2 Not Available [facility] (Lab) [address] [place], [address], 06/05/2024 14:43:15 06/05/2006/05/2024 IRON/ TIBC PANEL iron 52 mcg/d L 42-175 Not Available [facility] (Lab) [address] [place], [address], 06/05/2024 14:43:15 06/05/2006/05/2024 COMPR EHENS BHARATI METAB OLIC PANEL sodium 138 mmol/ L 137-14 5 Not Available [facility] (Lab) [address] [place], [address], 06/05/2024 14:43:05 06/05/2006/05/2024 COMPR EHENS BHARATI METAB OLIC PANEL potassium 4.5 mmol/ L 3.5-5. 1 Not Available [facility] (Lab) [address] [place], [address], 06/05/2024 14:43:05 06/05/2006/05/2024 COMPR EHENS BHARATI METAB OLIC PANEL chloride 106 mmol/ L 98-107 Not Available [facility] (Lab) [address] [place], [address], 06/05/2024 14:43:05 06/05/2006/05/2024 COMPR EHENS BHARATI METAB OLIC PANEL carbon dioxide 26 mmol/ L 22-30 Not Available [facility] (Lab) [address] [place], [address], 06/05/2024 14:43:05 06/05/2006/05/2024 COMPR EHENS BHARATI METAB OLIC PANEL anion gap 10.5 mmol/ L 14-22 low Not Available [facility] (Lab) [address] [place], [address], 06/05/2024 14:43:05 06/05/20 24 06/05/2024 COMPR EHENS BHARATI METAB OLIC PANEL glucose 90 mg/dL 70-99 Not Available [facility] (Lab) [address] [place], [address], 06/05/2024 14:43:05 06/05/2006/05/2024 COMPR EHENS BHARATI METAB OLIC PANEL BUN 12 mg/dL 8-19 Not Available [facility] (Lab) [address] [place], [address], 06/05/2024 14:43:05 06/05/2006/05/2024 COMPR EHENS BHARATI METAB OLIC PANEL creatinine 0.72 mg/dL 0.66-1 .25 Not Available [facility] (Lab) [address] [place], [address], 06/05/2024 14:43:05 06/05/2006/05/2024 COMPR EHENS BHARATI METAB OLIC PANEL GFR >60 Refer ence Range : Katy ge GFR Healt hy Adult : >60 mL/mi n/1.7 3 m2 Chron ic Kidne y Disea se: 15-60 mL/mi n/1.7 3 m2 Kidne y Failu re: <15/m L/min /1.73 m2 www.n iddk. nih.g ov The MDRD study equat ion has not been valid ated in child sumaya <18 years of age; pregn ant women ; the elder ly >85 years of age; or in some racia l or ethni c subgr oups, such as Hispa nics. Outsi de the valid ated latisha eters , estim ated GFR is less accur ate, requi ring clini leonor judgm ent on a case- by-ca se basis . Clini leonor inter preta tion for other races and ages must be made by the clini elizabet. The MDRD study equat ion has not been valid ated for the evalu ation of serum creat inine relat ed to nutri per l statu s or medic ation usage . For perso ns <18 years of age, a pedia tric GFR calcu lator is avail able on the [facility] websi te: https ://rebeka w.pilar fortuney.o rg/pr ofess ional s/kdo qi/gf r_cal culat or Not Available [facility] (Lab) [address] [place], [address], 06/05/2024 14:43:05 06/05/2006/05/2024 COMPR EHENS BHARATI METAB OLIC PANEL alkaline phosphatase 101 U/L 38-126 Not Available [facility] (Lab) [address] [place], [address], 06/05/2024 14:43:05 06/05/2006/05/2024 COMPR EHENS BHARATI METAB OLIC PANEL alanine aminotransfe rase 19 U/L 0-35 Not Available [facility] (Lab) [address] [place], [address], 06/05/2024 14:43:05 06/05/2006/05/2024 COMPR EHENS BHARATI METAB OLIC PANEL aspartate aminotransfe rase 25 U/L 15-37 Not Available [facility] (Lab) [address] [place], [address], 06/05/2024 14:43:05 06/05/2006/05/2024 COMPR EHENS BHARATI METAB OLIC PANEL bilirubin, total 0.50 mg/dL 0.20-1 .30 Not Available [facility] (Lab) [address] [place], [address], 06/05/2024 14:43:05 06/05/2006/05/2024 COMPR EHENS BHARATI METAB OLIC PANEL calcium 9.8 mg/dL 8.4-10 .2 Not Available [facility] (Lab) [address] [place], [address], 06/05/2024 14:43:05 06/05/2006/05/2024 COMPR EHENS BHARATI METAB OLIC PANEL total protein 7.0 g/dL 6.3-8. 2 Not Available [facility] (Lab) [address] [place], [address], 06/05/2024 14:43:05 06/05/2006/05/2024 COMPR EHENS BHARATI METAB OLIC PANEL albumin 4.0 g/dL 3.4-5. 0 Not Available [facility] (Lab) [address] [place], [address], 06/05/2024 14:43:05 06/05/2006/05/2024 COMPR EHENS BHARATI METAB OLIC PANEL globulin 3.0 g/dL 2.6-4. 2 Not Available [facility] (Lab) [address] [place], [address], 06/05/2024 14:43:05 06/05/2006/05/2024 COMPR EHENS BHARATI METAB OLIC PANEL A/G ratio 1.3 ratio 1.0-2. 0 Not Available [facility] (Lab) [address] [place], [address], 06/05/2024 14:43:05 06/05/2006/05/2024 LIPID PANEL cholesterol 87 mg/dL 140-19 9 low [facility] NSUS RECOM MENDA TION FOR ORIANA STERO L: ADULT CHILD LOW RISK: <200 <170 BORDE RLINE : <200- 239 ----- HIGH RISK: >240 >200 Not Available [facility] (Lab) [address] [place], [address], 06/05/2024 14:43:07 06/05/2006/05/2024 LIPID PANEL triglyceride s 53 mg/dL 0-150 [facility] NSUS REPOR T RECOM MENDA TION FOR TRIGL YCERI RAMIRO: ADULT CHILD LOW RISK: <150 ----- BODER LINE: 150-1 99 ----- HIGH RISK: >200 ----- Not Available [facility] (Lab) [address] [place], [address], 06/05/2024 14:43:07 06/05/2006/05/2024 LIPID PANEL HDL cholesterol 43 mg/dL 40- Not Available [facility] (Lab) [address] [place], [address], 06/05/2024 14:43:07 06/05/2006/05/2024 LIPID PANEL LDL cholesterol, calculated 33 mg/dL 0-130 [facility] NSUS REPOR T RECOM MENDA TIONS FOR LDL: ADULT CHILD LOW RISK <130 <110 (OPTI MAL LDL) <100 ----- BORDE RLINE : 130-1 59 ----- HIGH RISK: >160 >130 A TRIGL YCERI DE RESUL T >400 INVAL IDATE S THE CALCU LATIO N FOR LDL FRACT IONAT ION - THE LDL RESUL T WILL NOT BE REPOR NANCY. Not Available [facility] (Lab) [address] [place], [address], 06/05/2024 14:43:07 06/05/2006/05/2024 MAGNE SIUM magnesium 1.9 mg/dL 1.6-2. 3 Not Available [facility] (Lab) [address] [place], [address], 06/05/2024 14:43:11 06/05/2006/05/2024 URIC ACID SERUM uric acid 3.3 mg/dL 2.5-6. 2 Not Available [facility] (Lab) [address] [place], [address], 06/05/2024 14:43:13 06/05/2006/05/2024 HEMOG LOBIN A1C HA1C 5.5 % 4.0-6. 0 Diabe areli Livan Cronin luanne: <5.7% Consi stent with absen ce of diabe areli 5.7-6 .4% Consi stent with incre ased risk for diabe areli (pred iabet es) >OR=6 .5% Consi stent with diabe areli REFER ENCE: Diabe areli Care 2016, 39(Herrera ppl.1 ):s13 -s22 Not Available [facility] (Lab) [address] [place], [address], 06/05/2024 15:02:59 06/05/2006/05/2024 TSH W/REF ELYSE FT4 TSH with reflex free T4 1.530 uIU/m L 0.465- 4.680 Not Available [facility] (Lab) [address] [place], [address], 06/05/2024 15:04:36 06/05/2006/05/2024 SULTANA TIN ferritin 5 NG/mL 6.24-1 37 low Not Available [facility] (Lab) [address] [place], [address], 06/05/2024 15:29:55 06/05/2006/05/2024 VITAM IN B12 (GABRIELA SON ) vb12 306 pg/mL 239-93 1 Not Available [facility] (Lab) [address] [place], [address], 06/05/2024 15:42:08 06/05/2006/05/2024 FOLAT E, SERUM /PLAS MA folate 19.7 NG/mL 2.76-2 0.0 Not Available [facility] (Lab) [address] [place], [address], 06/05/2024 15:42:10 05/22/20 xr obstu ction s serie s no chest [facility] [address] [facility] [place] [address] Nancy lua Name: BEN OJEDA Access ion #: [id number] Sex: F : 1979 4 9 Dictat ed By: Jerod silva Attend ing Physic zuleima: ERA GARCIA Orderi ng Physic zuleima: ERA GARCIA Exam Date: 2023 16:41 PM Exam Name: XR OBSTUC TIONS SERIES NO CHEST Admitt ing Diagno sis(es ): EXAM: XR OBSTUC TIONS SERIES NO CHEST DATE OF SERVIC E: 2023 04:41 PM Orderi ng Physic zuleima: ERA GARCIA REASON FOR EXAM: consti naila TECHNI QUE: 3 views of the abdome n COMPAR GENNARO: None FINDIN GS: Nancy lua has had prior surger y involv ing the upper abdome n there are surgic al clips projec ting over the expect ed positi on of the gallbl adder, the cardia of the stomac h and the greate r curvat ure of the stomac h. There is no free air. Nancy lua has a large stool burden . There may be a small bowel ileus involv ing the termin al ileum. The termin al ileum is filled with gas but not dilate d beyond normal limits . Colon is not dilate d beyond normal limits . IMPRES LAZARA: 1. Hanny yoo and eviden ce for prior abdomi nal surger y. No obstru ction apprec iated. End of Report Electr onical ly Signed by: Jerod silva at 2023 17:27: 24 PM Page 1 [email or web address] [facility] (Imaging) [address] [facility] [place], [address], 05/23/2024 11:57:31 Result Notes None recorded. Problems Name Problem SNOMED Code Status Onset Date Resolution Date Notes Provider Name and Address Organization Details Recorded Time Microscopic hematuria 839854770 Active 2021 Not Available [employer] 3 01:24:34 Anemia 860580382 Active 2021 Not Available [facility] 3 01:24:34 History of recurrent tonsillitis 870993130 Active 2021 Not Available [facility] 3 01:24:35 Vitamin B12 deficiency (non anemic) 77608245 Active 2021 Not Available [facility] 3 01:24:35 History of bypass of stomach 802650567 Active 2021 Not Available [facility] 3 01:24:35 Chronic idiopathic constipation 03465919 Active 2021 Not Available [facility] 3 01:24:35 Fatigue 01309743 Active 2022 Lei Garcia MD [address], [place], [address] , [facility] [employer] 3 10:45:01 Sleep apnea 70923813 Active 2022 Lei Garcia MD [address], [place], [address] , [facility] 3 10:09:41 Overweight 475752566 Active 2023 Lei Garcia MD [address], [place], [address] , [facility] 4 11:39:42 Fracture of foot 63231923 Active 2023 Lei Garcia MD [address], [place], [address] , [facility] 4 10:40:11 Obesity 799503074 Active 2023 Lei Garcia MD [address], [place], [address] , [facility] 4 11:43:45 Recurrent skin infection 661697142 Active 2023 Lei Garcia MD [address], [place], [address] , [employer] [facility] [employer] 4 11:52:24 Dysmenorrhea 240112372 Active 2023 MABEL Cortes [address], [address] , [facility] [employer] 4 10:23:29 Problem Notes None recorded. Procedures Surgical History Date Name Laterality Status Provider Name and Address Organization Details Recorded Time 07/22/20 22 TONSILLECTOMY (SURG) completed Not Available [facility] 10/08/2022 01:26:17 07/09/20 22 Date of Last Mammogram completed Lei Garcia MD [address] [facility] [address], [place], [address], [facility] [employer] [facility] [employer] 05/04/2023 10:44:22 08/09/19 12 Gastric Bypass completed Not Available [facility] 10/08 01:23:33 08/09/19 04 Gallbladder Surgery completed Not Available [facility] 10/08/2022 01:23:33 Imaging Results Imaging Date Name Status LastModified by Organiz ation Details LastModified Time 05/22/2024 xr obstuctions series no chest completed [id number] [facility] (Imaging) [address] [place], [address], 05/23/2024 11:57:31 Procedure Notes None recorded. Medical Equipment None Reported. Allergies Allergen ID Allergen Name Allergen Category Reaction Reaction Severity Criticality Documentation Date Start Date Code Code System Note Provider Name and Address Organization Details Recorded Time 43701 Wellbutri n medicatio n rash severe Not available 10/08/2022 77559 RxNorm Not Available [facility] 3 01:26:09 61388 Medicinal product containin g penicilli n and acting as antibacte rial agent (product) medicatio n hives severe Not available 10/08/2022 74843 05 SNOMED Not Available [facility] 3 01:26:09 84282 amoxicill in medicatio n hives severe Not available 10/08/2022 723 RxNorm Not Available [facility] 3 01:26:10 88767 amoxicill in trihydrat e medicatio n Not available Not available Not available 10/29/2023 74235 8 RxNorm Alicia Lan RN null, [place] [employer] 09:00:40 Medications Name Sig Start Date Stop [...] Details Last Updated DateTime 4 162.56 cm 25.1 kg/m2 15243.5 9 g 98.2 [degF] 98.1 /min 20 /min 99 % 99 % 104 mm[Hg] 70 mm[Hg] Hira Grier [facility] [employer] [facility] 4 14:13:13 Date Recorded Body height Body mass index (BMI) Body weight Body temperature Oxygen saturation Oxygen saturation in Arterial blood by Pulse oximetry Heart rate Systolic blood pressure Diastolic blood pressure Provider Name and Address Organization Details Last Updated DateTime 4 162.56 cm 25.1 kg/m2 56854.2 4 g 97.4 [degF] 99 % 99 % 65 /min 110 mm[Hg] 60 mm[Hg] Merna Puckett RN [facility] [employer] [facility] 4 11:41:23 Date Recorded Respiratory rate Provider Name a ut Address Organization Details Last Updated DateTime 06/12/2024 18 /min Sid Chowdhury [address] [place] [address], [address], [address], [facility] [employer] [facility] 06/12/2024 12:01:08 Date Recorded Body height Body mass index (BMI) Body weight Body temperature Heart rate Respiratory rate Oxygen saturation Oxygen saturation in Arterial blood by Pulse oximetry Systolic blood pressure Diastolic blood pressure Provider Name and Address Organization Details Last Updated DateTime 4 162.56 cm 24.2 kg/m2 04549.2 2 g 97.2 [degF] 72 /min 20 /min 98 % 98 % 92 mm[Hg] 60 mm[Hg] Alicia Lan, ANGELA [facility] [employer] [facility] 4 09:56:45 Social History Question Answer Notes LastModified by Organizat ion Details LastModified Time Tobacco Smoking Status Never Smoker Nayana cline, [facility] 08/19/2023 11:04:45 Do You Have An Advance Directive? No [id number] Information not available 10/08/2022 What Is Your Level Of Alcohol Consumption? None [id number] Information not available 10/08/2022 Do You Wear A Helmet When Biking? No Information not available 08/19/2023 What Is Your Level Of Caffeine Consumption? Heavy [id number] Information not available 10/08/2022 In The 14 [...] Type Of Diet Are You Following? 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 No Information not available 08/19/2023 How Many Children Do You Have? 2 Information not available 07/14/2024 Do You Have Any Pets? Yes Information not available 08/19/2023 What Is Your Relationship Status? [id number].[id number] Information not available 10/08/2022 Do You Use Your Seat Belt Or Car Seat Routinely? Yes Information not available 08/19/2023 Do You Have Smoke And Carbon Monoxide Detectors In Your Home? Yes Information not available 08/19/2023 Are You Passively Exposed To Smoke? No Information not available 08/19/2023 Are There Any Smokers In Your House? No Information not available 08/19/2023 Do You Participate In Social Media? No Information not available 08/19/2023 Do You Feel Stressed (tense, Restless, Nervous, Or Anxious, Or Unable To Sleep At Night)? [id number] Information not available 08/19/2023 Do You Use [...] Time What is your exercise level? None [id number] Information not available 10/08/2022 Mental Status None recorded. Family History Relationship Description Onset Age of this Age Resolved Age Notes LastModified by Organization Details LastModified Time Son Tonsillectom y [email or web address] Not available 06/12 11:22:20 Daughter Tonsillectom y [email or web address] Not available 06/12 11:22:20 Sister Tonsillectom y [email or web address] Not available 06/12 11:22:20 Sister Tonsillectom y [email or web address] Not available 06/12 11:22:21 Father Enlarged tonsil [email or web address] Not available 06/12 11:22:21 Mother Malignant tumor of breast 57 58 [id number] Not available 10/08/2022 01:23:34 Paternal Aunt Malignant tumor of breast [email or web address] Not available 06/12 11:22:21 Paternal Grandfather Malignant tumor of colon [email or web address] Not available 06/12 11:22:21 Maternal Grandfather Malignant tumor of colon [email or web address] Not available 06/12 11:22:21 Paternal Grandmother Myocardial infarction 45 45 [id number] Not available 10/08/2022 01:23:35 Medical History Condition Response MRSA N SLEEP APNEA Y ALLERGIES/HAYFEVER N LUNG DISEASE/DISORDER N HISTORY OF DRUG ABUSE N INSOMNIA N COPD N RADIATION / CHEMOTHERAPY N HIGH CHOLESTEROL / HYPERLIPIDEMIA N HYPERTHYROIDISM N BLOOD DISEASES N EAR OR HEARING PROBLEMS N HYPOTHYROIDISM N SHINGLES N DEPRESSION (INCLUDING POST ) N HAVE YOU BEEN HOSPITALIZED OR SEEN IN [facility] ER IN THE PAST YEAR ? [...] quadrivalent, PF 05/07/2022 completed Not Available [facility] 3 01:26:03 Influenza, split virus, quadrivalent, PF 05/04/2023 completed Hira cline [facility] 05/04/2023 16:57:47 Influenza, split virus, trivalent, PF 05/22/2024 completed Hira cline [facility] 05/22/2024 16:46:39 Past Encounters Encounter ID Performer Location Encounter Start Date Encounter Closed Date Diagnosis/Indication Diagnosis SNOMED-CT Code Diagnosis ICD10 Code [id number] [facility] [address] [place] [address] 05/07/2022 00:00:00 05/07/2022 12:06:33 [id number] [facility] [address] [place] [address] 05/08/2022 00:00:00 05/10/2022 07:32:21 [id number] [facility] [address] [place] [address] 05/21/2022 00:00:00 05/21/2022 11:43:29 [id number] [facility] [address] [place] [address] 06/09/2022 00:00:00 06/09/2022 16:04:08 [id number] [facility] [address] [place] [address] 06/18/2022 00:00:00 06/18/2022 10:48:51 [id number] [facility] [address] [place] [address] 06/30/2022 00:00:00 06/30/2022 12:43:11 [id number] [facility] [address] [place] [address] 07/20/2022 00:00:00 07/20/2022 12:26:01 [id number] [facility] [address] [place] [address] 08/06/2022 00:00:00 08/06/2022 11:39:53 [id number] [facility] [address] [place] [address] 10/06/2022 00:00:00 10/06/2022 11:07:03 [id number] Lei Garcia MD [address] [address] 02/23/2023 12:42:07 02/23/2023 13:07:39 Anemia 022517445 D64.9 Chronic id iopathic constipation 26364189 K59.04 Obesity 586209053 E66.9 History of bypass of stomach 168584083 Z98.84 [id number] Lei Garcia MD [address] [address] 05/04/2023 10:28:07 05/04/2023 11:09:40 Anemia 995779158 D64.9 Chronic id iopathic constipation 81352672 K59.04 Obesity 077350012 E66.9 History of bypass of stomach 080336449 Z98.84 Adult heal th examination 764650045 Z00.00 Vitamin B1 2 deficiency (non anemic) 97057320 E53.8 Administra tion of influenza vaccine 60113696 Z23 Fatigue 42001795 R53.83 [id number] Lei Garcia MD [address] [address] 05/19/2023 09:45:39 05/19/2023 10:22:33 Anemia 884354357 D64.9 Chronic id iopathic constipation 07254566 K59.04 Obesity 231990251 E66.9 History of bypass of stomach 092751596 Z98.84 Vitamin B1 2 deficiency (non anemic) 06078169 E53.8 Fatigue 33072490 R53.83 Sleep apnea 24277308 G47 .30 [id number] Lei Garcia MD [address] [address] 08/12/2023 09:57:06 08/12/2023 10:08:23 [id number] Lei Garcia MD [address] [address] 08/19/2023 11:04:08 08/19/2023 11:39:28 Anemia 546732905 D64.9 Chronic id iopathic constipation 84483710 K59.04 Obesity 630255030 E66.9 History of bypass of stomach 759913535 Z98.84 Vitamin B1 2 deficiency (non anemic) 93792822 E53.8 Fatigue 84946568 R53.83 Sleep apnea 33003174 G47 .30 Exposure t o streptococcal pharyngitis 5741406028 105 Z20.492 [id number] MABEL Cortes [place] [address] 10/29/2023 08:55:01 10/29/2023 10:17:03 Obesity 870533562 E66.9 Vitamin B1 2 deficiency (non anemic) 98960822 E53.8 [id number] Lei Garcia MD [place] [address] 11/18/2023 11:24:38 11/18/2023 11:47:17 Anemia 260968157 D64.9 Chronic id iopathic constipation 51693188 K59.04 Obesity 556673377 E66.9 History of bypass of stomach 826844370 Z98.84 Vitamin B1 2 deficiency (non anemic) 23625828 E53.8 Fatigue 66755583 R53.83 Sleep apnea 13814052 G47 .30 Screening mammography 24 749560 Z12.31 [id number] Lei Garcia MD [place] [address] 02/17/2024 10:13:51 02/17/2024 10:50:51 Anemia 172877612 D64.9 Chronic id iopathic constipation 25909546 K59.04 Obesity 693140928 E66.9 History of bypass of stomach 225887102 Z98.84 Vitamin B1 2 deficiency (non anemic) 11189580 E53.8 Fatigue 41993456 R53.83 Fracture of foot 8103801 5 S92.902D [id number] Lei Garcia MD [place] [address] 04/12/2024 14:23:45 04/12/2024 14:59:52 Vitamin B12 deficiency (non anemic) 35582342 E53.8 [id number] Lei Garcia MD [address] [address] 05/22/2024 13:59:49 05/22/2024 14:39:34 Chronic idiopathic constipation 97353929 K59.04 Anemia 562944285 D64.9 Obesity 062891338 E66.9 History of bypass of stomach 746225747 Z98.84 Vitamin B1 2 deficiency (non anemic) 25813331 E53.8 Fatigue 92915977 R53.83 Fracture of foot 0112297 5 S92.902D Adult heal th examination 564677883 Z00.00 Administra tion of influenza vaccine 40436947 Z23 Screening mammography 24 231730 Z12.31 [id number] Lei Garcia MD [address] [address] 06/05/2024 09:46:28 06/05/2024 17:43:54 [id number] Lei Garcia MD [address] [address] 06/12/2024 11:22:09 06/12/2024 12:11:08 Chronic idiopathic constipation 85943323 K59.04 Anemia 297851859 D64.9 Obesity 519718144 E66.9 History of bypass of stomach 423012393 Z98.84 Vitamin B1 2 deficiency (non anemic) 70708118 E53.8 Fatigue 39747143 R53.83 Fracture of foot 5518874 5 S92.902D Screening colonoscopy 44 0224415 Z12.11 Recurrent skin infection 401227760 L08.9 [id number] MABEL Cortes [address] [address] 07/14/2024 09:45:21 07/14/2024 10:31:23 Gynecologic examination 83831644 Z01.419 Screening mammography 24 854051 Z12.31 Dysmenorrhea 201644272 N 94.6 Health Concerns Section Related Observation LastModified by Organization Detai ls LastModified Time None Recorded Concern Status LastModified by Organization Details LastModified Time None Recorded Advance Directives Directive N: Payers Encounter Date Sequence Insurance Name Policy Number Policy Price Covered Member ID Price Member ID Guarantor Name 04/12/2024 1 [employer] - OPEN [employer] Christina Ting Blair [id number] OI Christina Ting Blair 05/22/2024 1 [employer] Christina Ting Blair [id number] OI Christina Ting Blair 06/05/2024 1 [employer] Christina Ting Blair [id number] OI Christina Tign Blair 06/12/2024 1 [employer] Christina Ting Blair [id number] OI Christina Ting Blair 07/14/2024 1 [employer] Christina Ting Blair [id number] OI Christina Ting Blair Notes Date Note Type Note Provider Name and Address Organization Details Recorded Time 05/22/2024 text/html Pt is here for h er annual exam. Doing overall well. Denies any problem with meds. Denies any new concern. Pt is on Wegovy and she is doing well on it. Pt is getting wt loss on it and she is happy with her progress. Denies any problem with meds.Pt has h/o gastric bypass done in 2011 and was able to loose 100 lbs after it.Pt had h/o AUDELIA in the past and was on Cpap for it. Lei Garcia MD [address] [place] [address], [facility] [address], [place], [address], [facility] [employer] 05/22/2024 14:35:57 06/12/2024 text/html Pt is here for f /u on her annual labs. Doing overall well. Denies any problem with meds. Denies any new concern. Pt is getting recurrent skin infections for last few yrs after her wt loss due to her multiple skin folds. Pt has not seen any specialist for this yet. Pt is on Wegovy and she is doing well on it. Pt is getting wt loss on it and she is happy with her progress. Denies any problem with meds.Pt has h/o gastric bypass done in 2011 and was able to loose 100 lbs after it.Pt had h/o AUDELIA in the past and was on Cpap for it. Lei Garcia MD [address], [facility] [address], [place], [address], [facility] 06/12/2024 12:02:09 07/14/2024 text/html Pap/PelvicReport ed bypatient.Context: appt for screening pap/pelvic/breast exam; no gynecologic complaints Associated Factors:no risk factor for cervical cancer; no history of JLUIS II/III; no abnormal pap smears; at least three pap smears in past 7 years; low risk sexual history; no RAMIRO exposure;needs mammogram screening MABEL Cortes [address], [facility] [address], [place], [address], [facility] 07/14/2024 10:25:24 OBGyn Episode No OBEpisode recorded.
--- OUTSIDE RECORDS SUMMARY | 2024-08-13 22:21 | XMS_ITS | Continuity of Care Document ---
Author Organization [place] [facility] Address [address] [place] [address] Care Team Providers Care Table Games Dealer Name Role Phone LEI GARCIA Primary Care Provider Assessment Encounter Date Assessment Date Assessment LastModified by Organization Details LastModified Time 06/12/2024 06/12/2024 44 yo F with - [...] Derm as per schedule. Cont f/u with Picking Machine Operator Helper at [place] as per schedule. Cont f/u with GI as per schedule. Cont f/u with ENT as per schedule. Advised to refer to Uro; but pt declined. HM: WWE - 06/30/22, normal. Cont f/u with WIRE MILL OPERATOR/Gyne as per schedule. Mammo - 07/22/22, normal. Ordered again. Colonoscopy - Referred to GI again. Flu - 05/22/24. Tdap - 2018. F/u in 3-4 months. Annual labs in 06/02. [email or web address] Not available 06/12/2024 12:01:58 Plan of Treatment Reminders Order Date Submit Date Provider Last Modified By Organization Details Last Modified Time Details Appointments Follow Up 15 2024 11:00A M Lei Garcia MD Not available Not available Not available Lab None recorded. Referral gastroent erologist referral - Please call patient to schedule an appointme nt. Thank you. 2023 024 CARSON Benson MD, [address] [facility], [facility] [address], [address], 08/11/2024 04:02:49 dermatolo gist referral - Please call patient to schedule an appointme nt. Thank you. 2023 024 [email or web address] [facility], [address], [place], [address], 07/13/2024 09:17:44 Procedures None recorded. Surgeries None recorded. Imaging None recorded. Medication Orders cyanocoba harsh (vit B-12) 1,000 mcg/mL injection solution 2023 024 [email or web address] Not available 06/12/2024 14:07:23 docusate sodium 100 mg capsule 2023 024 [facility]/Pharmacy #[id number], [address], [address], 06/12/2024 11:50:36 polyethyl genaro glycol 3350 17 gram/dose oral powder 2023 024 [facility]/Pharmacy #[id number], [address], [address], 07/14/2024 09:54:08 Trulance 3 mg tablet 2023 024 [id number], [address], [address], 06/12/2024 11:50:34 Wegovy 2.4 mg/0.75 mL subcutane ous pen injector 2023 [facility]/Pharmacy #[id number], [address] [facility], [place], [address], 06/12/2024 11:50:35 ferrous sulfate 325 mg (65 mg iron) tablet 2023 024 [facility]/Pharmacy #[id number], [address] [facility], [place], [address], 06/12/2024 11:50:37 Patient TargetsNo targets recorded. 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 Thank you. Referring Physician: Lei Garcia [facility], Encounter Date: 06/12/2024 Instructor Product Inspection Referral for R ecurrent skin infection Please call patient to schedule an appointment. Thank you. Referring Physician: Lei Garcia [facility], Encounter Date: 06/12/2024 Results Created Date Observation Date Name Description Value Unit Range Abnormal Flag Note LastModifiedBy Organization Detail LastModifiedTime 05/22/20 24 xr obstu ction s serie s no chest [facility] [address] [place] [address] Patien t Name: BEN PINTO [facility] Access ion #: [id number] Sex: F : 1979 5 [birth year] [...] abdome n COMPAR GENNARO: None FINDIN GS: Patien t has had prior surger y involv ing the upper abdome n there are surgic al clips projec ting over the expect ed positi on of the gallbl adder, the cardia of the stomac h and the greate r curvat ure of the stomac h. There is no free air. Patien t has a large stool burden . There may be a small bowel ileus involv ing the termin al ileum. The termin al ileum is filled with gas but not dilate d beyond normal limits . Colon is not dilate d beyond normal limits . IMPRES LAZARA: 1. Consti pation and eviden ce for prior abdomi nal surger y. No obstru ction apprec iated. End of Report Electr onical ly Signed by: Jerod silva at 2023 17:27: 24 PM Page 1 [email or web address] [facility] (Imaging) [address] [place], [address], 05/23/2024 11:57:31 Result Notes None recorded. 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 Active 2021 Not Available [employer] 3 01:24:35 Chronic idiopathic constipation 76459889 Active 2021 Not Available [employer] 3 01:24:35 Fatigue 73858597 Active 2022 Lei Garcia MD [address], [place], [address] , [employer] 3 10:45:01 Sleep apnea 61438720 Active 2022 Lei Garcia MD [address], [place], [address] , [employer] 3 10:09:41 Overweight 403030331 Active 2023 Lei Garcia MD [address], [place], [address] , [employer] 4 11:39:42 Fracture of foot 28619367 Active 2023 Lei Garcia MD [address], [place], [address] , [employer] 4 10:40:11 Obesity 385481577 Active 2023 Lei Garcia MD [address], [place], [address] , [employer] 4 11:43:45 Recurrent skin infection 497960824 Active 2023 Lei Garcia MD [address], [place], [address] , [employer] 4 11:52:24 Dysmenorrhea 363681139 Active 2023 MABEL Cortes [address], [place], [address] , [employer] 4 10:23:29 Problem Notes None recorded. Procedures Surgical History Date Name Laterality Status Provider Name and Address Organization Details Recorded Time 07/22/20 TONSILLECTOMY (SURG) completed Not Available [facility] 10/08/2022 01:26:17 07/09/20 Date of Last Mammogram completed Lei Garcia MD [address] [facility], [facility] [address], [place], [address], [facility] [email or web address] 05/04/2023 10:44:22 08/09/19 12 Gastric Bypass completed Not Available [facility] 10/08 01:23:33 08/09/19 04 Gallbladder Surgery completed Not Available [facility] 10/08/2022 01:23:33 Imaging Results None recorded. Procedure Notes None recorded. Medical Equipment None Reported. Allergies Allergen ID Allergen Name Allergen Category Reaction Reaction Severity Criticality Documentation Date Start Date Code Code System Note Provider Name and Address Organization Details Recorded Time 52047 Wellbutri n medicatio n rash severe Not available 10/08/2022 74848 RxNorm Not Available [facility] 3 01:26:09 02633 Medicinal product containin g penicilli n and acting as antibacte rial agent (product) medicatio n hives severe Not available 10/08/2022 21379 05 SNOMED Not Available [facility] 3 01:26:09 49772 amoxicill in medicatio n hives severe Not available 10/08/2022 723 RxNorm Not Available [facility] 3 01:26:10 84829 amoxicill in trihydrat e medicatio n Not available Not available Not available 10/29/2023 76543 8 RxNorm Alicia Lan RN [facility], [place] [employer] [facility] [email or web address] 4 09:00:40 Medications Name Sig Start Date [...] and Address Organization Details Last Updated DateTime 162.56 cm 25.1 kg/m2 79760.2 4 g 97.4 [degF] 99 % 99 % 65 /min 110 mm[Hg] 60 mm[Hg] Merna Puckett RN [place] [employer] [facility] [email or web address] 4 11:41:23 Date Recorded Respiratory rate Provider Name a nd Address Organization Details Last Updated DateTime 06/12/2024 18 /min Sid Chowdhury [address] [place] [address], [address], [place] [employer] [facility] [email or web address] 06/12/2024 12:01:08 Social History Question Answer Notes LastModified by Organizat ion Details LastModified Time Tobacco Smoking Status Never Smoker Nayana cline, [employer] [facility] [email or web address] 08/19/2023 11:04:45 Do You Have An Advance Directive? No [id number] Information not available 10/08/2022 What Is Your Level Of Alcohol Consumption? None [id number] Information not available 10/08/2022 Do You Wear A Helmet When Biking? No Information not available 08/19/2023 What Is Your Level Of Caffeine Consumption? Heavy [id number] Information not available 10/08/2022 In The 14 [...] Type Of Diet Are You Following? 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 No Information not available 08/19/2023 How Many Children Do You Have? 2 Information not available 07/14/2024 Do You Have Any Pets? Yes Information not available 08/19/2023 What Is Your Relationship Status? [id number] Information not available 10/08/2022 Do You Use [...] Anxious, Or Unable To Sleep At Night)? [id number] Information not available 08/19/2023 Do You Use [...] Time What is your exercise level? None [id number] Information not available 10/08/2022 Mental Status None recorded. Family History Relationship Description Onset Age of this Age Resolved Age Notes LastModified by Organization Details LastModified Time Son Tonsillectom y [email or web address] Not available 06/12 11:22:20 Daughter Tonsillectom y [email or web address] Not available 06/12 11:22:20 Sister Tonsillectom y [email or web address] Not available 06/12 11:22:20 Sister Tonsillectom y [email or web address] Not available 06/12 11:22:21 Father Enlarged tonsil [email or web address] Not available 06/12 11:22:21 Mother Malignant tumor of breast 57 58 [id number] Not available 10/08/2022 01:23:34 Paternal Aunt Malignant tumor of breast Not available 06/12 11:22:21 Paternal Grandfather Malignant tumor of colon [email or web address] Not available 06/12 11:22:21 Maternal Grandfather Malignant tumor of colon [email or web address] Not available 06/12 11:22:21 Paternal Grandmother Myocardial infarction 45 45 [id number] Not available 10/08/2022 01:23:35 Medical History Condition Response MRSA N SLEEP APNEA Y ALLERGIES/HAYFEVER N LUNG DISEASE/DISORDER N HISTORY OF DRUG ABUSE N INSOMNIA N COPD N RADIATION / CHEMOTHERAPY N HIGH CHOLESTEROL / HYPERLIPIDEMIA N HYPERTHYROIDISM N BLOOD DISEASES N EAR OR HEARING PROBLEMS N HYPOTHYROIDISM N SHINGLES N DEPRESSION (INCLUDING POST ) N HAVE YOU BEEN HOSPITALIZED OR SEEN IN [facility] IN THE PAST YEAR ? N STROKE/TIA N ULCERS N OBESITY Y ANEURYSM N HISTORY WITH COMPLICATIONS WITH ANESTHES IA ? N NO SIGNIFICANT PAST MEDICAL HISTORY N USE OF BLOOD THINNERS N DIABETES, TYPE N PARATHYROID DISEASE N ENT N SEASONAL ALLERGIES N HEARTBURN / REFLUX N HEPATITIS / LIVER DISEASE N SLEEP DISORDER N HEADACHES/MIGRAINES N SEIZURES/EPILEPSY N CHF N PACEMAKER N DIZZINESS N HEART DISEASE/HEART PROBLEMS N AIDS/HIV N FRACTURES N HYPERTENSION N CANCER: SPECIFY N TOURETTE'S N ANXIETY DISORDER Y BLOOD TRANSFUSION N ANESTHESIA COMPLICATIONS N ANEMIA/BLOOD DISORDER N CHRONIC EAR INFECTIONS N AUTOIMMUNE DISEASE [...] Immunizations Vaccine Type Date Status Note Provider Isauro sage and Address Organization Details Recorded Time Influenza, split virus, quadrivalent, PF 05/07/2022 completed Not Available [employer] 01:26:03 Influenza, split virus, quadrivalent, PF 05/04/2023 completed DENIA Hale [facility] [employer] [facility] 05/04/2023 16:57:47 Influenza, split virus, trivalent, PF 05/22/2024 completed DENIA [facility] 05/22/2024 16:46:39 Past Encounters Encounter ID Performer Location Encounter Start Date Encounter Closed Date Diagnosis/Indication Diagnosis SNOMED-CT Code Diagnosis ICD10 Code [id number] Lei Garcia MD [address] [address] 05/22/2024 13:59:49 05/22/2024 14:39:34 Chronic idiopathic constipation 21624674 K59.04 Anemia 676411372 D64.9 Obesity 675682230 E66.9 History of bypass of stomach 240170581 Z98.84 Vitamin B1 2 deficiency (non anemic) 08235663 E53.8 Fatigue 89164107 R53.83 Fracture of foot 3081709 5 S92.902D Adult heal th examination 239455961 Z00.00 Administra tion of influenza vaccine 84429522 Z23 Screening mammography 24 045244 Z12.31 [id number] Lei Garcia MD [address] [address] 06/05/2024 09:46:28 06/05/2024 17:43:54 [id number] Lei Garcia MD [address] [address] 06/12/2024 11:22:09 06/12/2024 12:11:08 Chronic idiopathic constipation 49702310 K59.04 Anemia 151716836 D64.9 Obesity 947693131 E66.9 History of bypass of stomach 033261499 Z98.84 Vitamin B1 2 deficiency (non anemic) 90992227 E53.8 Fatigue 69099622 R53.83 Fracture of foot 0063834 5 S92.902D Screening colonoscopy 44 7238494 Z12.11 Recurrent skin infection 569336969 L08.9 Health Concerns Section Related Observation LastModified by Organization Detai ls LastModified Time None Recorded Concern Status LastModified by Organization Details LastModified Time None Recorded Payers Encounter Date Sequence Insurance Name Policy Number Policy Price Covered Member ID Price Member ID Guarantor Name 06/12/2024 1 [employer] - OPEN ACCESS Christina Pinto [id number] OI Christina Pinto Notes Date Note Type Note Provider Name and Address Organization Details Recorded Time 06/12/2024 text/html Pt is here for f/u on her annual labs. Doing overall well. [...] on Cpap for it. Lei Garcia MD [address] [place] [address], [place] [address], [place], [address], [facility] [employer] [facility] [employer] 06/12/2024 12:02:09 OBGyn Episode No OBEpisode recorded.
--- OUTSIDE RECORDS SUMMARY | 2024-08-13 22:22 | XMS_ITS | Encounter Summary ---
Author Organization [facility] Address [address] [place] [address]. [place] [address] [place] [address] Care Team Providers Care Oven Press Tender Name Role Phone Riley Cantu MD Unavailable [phone] Lei Garcia MD Primary Care Provider [phone] Reason for Visit * Reason Comments Foot Pain Encounter Details Date Type Department Care Team (Late st Contact Info) Description 01/20/2024 11:36 PM CDT - 01/21/2024 1:34 AM CDT Emergency [facility] Emergency Room [address] [place] [address] Alejandra Esquivel MD [address] [place] [address] Foot Pain Discharge Disposition: Home or Self Care (Routine Discharge) Social History Tobacco Use Types Packs/Day Years Used Date Smoking Tobacco: Never Alcohol Use Standard Drinks/Week Comments Yes 0 (1 standard drink = 0.6 oz pur e alcohol) socially PHQ-2 Answer Date Recorded Patient Health Questionnaire-2 Score 0 10/30/2022 Comments No Sex and Gender Information Value Date Recorded Sex Assigned at Not on file 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 Gender Identity Not on file Sexual Orientation Not on file 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 Not on file Not on file documented as of this encounter Last Filed Vital Signs Vital Sign Reading Time Taken Comments Blood Pressure 116/66 01/21/2024 1:00 AM CDT Pulse 83 01/21/2024 1:00 AM CDT Temperature 37.1 ??C (98.7 ??F) 01/21/2024 1:00 AM CD T Respiratory Rate 16 01/21/2024 1:00 AM CDT Oxygen Saturation 100% 01/21/2024 1:00 AM CDT Inhaled Oxygen Concentration - - Weight 71.2 kg (157 lb) 01/20/2024 11:53 PM CDT Height 160 cm (5' 3 ) 01/20/2024 11:53 PM CDT Body Mass Index 27.81 01/20/2024 11:53 PM CDT documented in this encounter Discharge Instructions * Attachments The following attachments cannot be sent through Care Everywhere. * Toe fracture ([place]) documented in this encounter Medications at Time of Discharge cyanocobalamin 1000 MCG/ML injection Inject into the muscle monthly. 05/23/2021 FEROSUL 325 (65 Fe) MG tablet TAKE 1 TABLET BY MOUTH TWICE DAILY AFTER A MEAL 05/21/2022 oxyCODONE-acetami nophen (PERCOCET) 5-325 MG tabletIndications :Acute Pain < 7 Day Supply Take 1 tablet by mouth every 4 (four) hours as needed for Pain. Indications: Acute Pain < 7 Day Supply 10 tablet 01/21/2024 multi vitamin/minerals tablet Take 1 tablet by mouth daily. 01/25/2024 nitrofurantoin, macrocrystal-mono hydrate, (MACROBID) 100 MG capsule 05/21/2022 01/25/2024 Phentermine HCl 30 MG Cap 06/18/2022 01/25/2024 documented as of this encounter ED Notes * Alejandra Esquivel MD - 01/21/2024 12:51 AM CDT Emergency Department Note Chief Complaint Chief Complaint Patient presents with Foot Pain History of Present Illness 43-year-old female with no significant past medical history presents now to the ED with left foot injury. Patient reports she was wearing flip-flops when she kicked a railroad tie. This occurred justprior to arrival. She has very severe pain swelling and bruising in the midfoot. She denies any other injuries. Medical History ALLERGIES: Review of patient's allergies indicates: Allergen Reactions Amoxil [Amoxicillin] Hives Penicillins Hives Wellbutrin [Bupropion] Hives MEDICATIONS: Prior to Admission medications Medication Sig Start Date End Date Taking? Authorizing Provider oxyCODONE-acetaminophen (PERCOCET) 5-325 MG tablet Take 1 tablet by mouth every 4 (four) hours as needed for Pain. Indications: Acute Pain < 7 Day Supply 01/21/24 Yes Alejandra Esquivel MD cyanocobalamin 1000 MCG/ML injection Inject into the muscle monthly. 05/23/21 [facility] FEROSUL 325 (65 Fe) MG tablet TAKE 1 TABLET BY MOUTH TWICE DAILY AFTER A MEAL Patient not taking: Reported on 10/30/2022 05/21/22 Default History Genericprovider multi vitamin/minerals tablet Take 1 tablet by mouth daily. Patient not taking: Reported on 10/30/2022 [facility] nitrofurantoin, macrocrystal-monohydrate, (MACROBID) 100 MG capsule 05/21/22 Default History Genericprovider Phentermine HCl 30 MG Cap 06/18/22 Default History Genericprovider PAST MEDICAL HISTORY: Past Medical History: Diagnosis Date Anemia Anxiety Benign paroxysmal positional vertigo Sleep apnea Syncope TMJ dysfunction Vitamin B12 deficiency PAST SURGICAL HISTORY: Past Surgical History: Procedure Laterality Date APPENDECTOMY GALLBLADDER SURGERY GASTRIC BYPASS TONSILLECTOMY FAMILY HISTORY: Family History Problem Relation Name Age of Onset Diabetes Mother Breast Cancer Mother Other (brain cancer) Mother Stroke Father Diabetes Father Thyroid Disease Sister Cancer Other fm hx Diabetes Other fm hx Colon Cancer Other fm hx Kidney Disease Other fm hx Hypertension Other fm hx Stroke Other fm hx Other (cardia disorder) Other fm hx Heart Attack Maternal Grandmother SOCIAL HISTORY: Social History Tobacco Use Smoking status: Never Substance Use Topics Alcohol use: Yes Comment: socially Drug use: Never Review of Systems Review of systems included in HPI, otherwise 10 systems are reviewed and negative. Physical Exam Filed Vitals: 01/20/24 2353 BP: 120/73 Pulse: (!) 108 Resp: 18 Temp: 98.9 ??F (37.2 ??C) TempSrc: Temporal SpO2: 100% Weight: 71.2 kg (157 lb) Height: 1.6 m (5' 3 ) Pulse oximetry on room air is 100% which is normal. Physical Exam General-patient appears uncomfortable HEENT-pupils equal reactive, sclera anicteric, oral mucosa pink and moist Neck-supple, no meningismus Chest-clear to auscultation, no rales rhonchi or wheezes Cardiovascular-regular rate and rhythm, no murmurs rubs or gallops Abdomen-soft, nontender, nondistended, normal bowel sounds -deferred Extremities-tenderness and decreased range of motion second third and fourth digits of left foot Skin-ecchymosis dorsal mid left foot Neuro-5 out of 5 strength bilateral upper and lower extremities, no facial droop, clear speech Psychiatric-patient appears calm, no signs of anxiety or distress Diagnostic Studies / Procedures LABORATORY STUDIES: No results found for this visit on 01/20/24. IMAGING STUDIES XR MULTI TOE LT Final Result by User, [id number] (01/20 42) INDICATION: Blunt trauma, pain to second, third, and fourth toes COMPARISON: None TECHNIQUE: AP, oblique, and lateral left toes views FINDINGS: There is a comminuted and displaced fracture at the base of the second proximal phalanx with articular extension. There is apparent plantar subluxation of the proximal phalanx with respect to the metatarsal head. There is also a minimally displaced fracture at the distal neck of the second proximal phalanx. No additional fractures identified. No evidence of bone erosion or tomás bone destruction. No remarkable arthritic changes. Soft tissues unremarkable. IMPRESSION: Second proximal phalanx fracture as above. Referred By: Interpreted By: Kaz England, 01/21/2024 12:33 AM ED Course / Medical Decision Making Medical Decision Making I was concerned patient may have fracture or dislocation, x-rays are obtained and do demonstrate a comminuted and displaced fracture with articular extension. Patient is placed in a postop shoe here,provided Percocet for pain, will ice and elevate the extremity, and will follow-up with podiatry asan outpatient. Medications oxyCODONE-acetaminophen (PERCOCET) 5-325 MG tablet 1 tablet (has no administration in time range) oxyCODONE-acetaminophen (PERCOCET) 5-325 MG tablet 1 tablet (has no administration in time range) Clinical Impression Displaced fracture of proximal phalanx of left lesser toe(s), initial encounter for closed fracture(Primary) Current Discharge Medication List START taking these medications Details oxyCODONE-acetaminophen (PERCOCET) 5-325 MG tablet Take 1 tablet by mouth every 4 (four) hours as needed for Pain. Indications: Acute Pain < 7 Day Supply Qty: 10 tablet, Refills: 0 Class: Eprescribe Pharmacy: [facility]/pharmacy #[id number] [facility] [address] ( #: [phone]) Comments: Per [place] law, C-II Rx's must include written & numerical notation of quantity. Quantity (in words) ten Associated Diagnoses: Displaced fracture of proximal phalanx of left lesser toe(s), initial encounter for closed fracture Disposition: Discharge Follow-Up: Soniya Barnes DPM [address] [facility] [address] In 2 days As needed ALEJANDRA ESQUIVEL MD 01/21/2024 12:56 AM Alejandra Esquivel MD 01/21/24 0056 * Faustina Merida RN - 01/20/2024 11:45 PM CDT 43 year old female came in with injury to the 2nd and 3rd toe on the left foot. Patient states her pain is a 8/10 throbbing pain, but patient denies taking anything for the pain. Patient states that just before coming in she was outside getting home from a friends and tripped on the landscaping, injuring her toes on the left foot. Patient does state she has previous injury to the same toes years ago, so her toes haven't been completely normal since. documented in this encounter Plan of Treatment Not on file documented as of this encounter Procedures Procedure Name Priority Date/Time Associated Diagnosis Comments XR MULTI TOE LT STAT 01/21/2024 12:27 AM CDT documented in this encounter Results * XR MULTI TOE LT (01/21/2024 12:27 AM CDT) Anatomical Region Laterality Modality Foot Radiographic Klarissa ging 01/21/2024 12:3 3 AM CDT Impressions 01/21/2024 12:37 AM CDT IMPRESSION: Second proximal phalanx fracture as above. Referred By: ?? Interpreted By: Kaz England, 01/21/2024 12:33 AM Narrative 01/21/2024 12:37 AM CDT INDICATION: Blunt trauma, pain to second, third, and fourth toes COMPARISON: None TECHNIQUE: AP, oblique, and lateral left toes views FINDINGS: There is a comminuted and displaced fracture at the base of the second proximal phalanx with articular extension. ??There is apparent plantar subluxation of the proximal phalanx with respect to the metatarsal head. ??There is also a minimally displaced fracture at the distal neck of the second proximal phalanx. ??No additional fractures identified. ??No evidence of bone erosion or tomás bone destruction. ??No remarkable arthritic changes. ??Soft tissues unremarkable. Procedure Note Kaz England MD - 01/21/2024 INDICATION: Blunt trauma, pain to second, third, and fourth toes COMPARISON: None TECHNIQUE: AP, oblique, and lateral left toes views FINDINGS: There is a comminuted and displaced fracture at the base of the secondproximal phalanx with articular extension. There is apparent plantarsubluxation of the proximal phalanx with respect to the metatarsal head.There is also a minimally displaced fracture at the distal neck of thesecond proximal phalanx. No additional fractures identified. No evidenceof bone erosion or tomás bone destruction. No remarkable arthriticchanges. Soft tissues unremarkable. IMPRESSION: Second proximal phalanx fracture as above. Referred By: Interpreted By: Kaz England, 01/21/2024 12:33 AM Alejandra Esquivel MD GENERAL IMAGING Final Result documented in this encounter Visit Diagnoses Diagnosis Displaced fracture of proximal phalanx of left lesser toe(s), initial encounter for closed fracture- Primary documented in this encounter Administered Medications Inactive Administered Medications - up to 3 most recent administrations Medication Order MAR Action Action Date Dose Rate Site oxyCODONE-acetaminophen (PERCOCET) 5-325 MG tablet 1 tablet 1 tablet, Oral, Every 4 hours PRN, Severe pain (Scale 8 - 10), 1 dose, Starting on Wed01/21/24 at 0050, Until Wed01/21/24 at 0110, MEDICATION FOR TAKE HOME Given 01/21/2024 1:10 AM CDT 1 tablet oxyCODONE-acetaminophen (PERCOCET) 5-325 MG tablet 1 tablet 1 tablet, Oral, Once, 1 dose, On Wed01/21/24 at 0100, Maximum dose of acetaminophen is 4000 mg from all sources in 24 hours. Given 01/21/2024 1:01 AM CDT 1 tablet documented in this encounter Active and Recently Administered Medications Times are shown in CDT. Scheduled Medication Order 01/19/2024 01/20/2024 01/21/2024 oxyCODONE-acetaminophen (PERCOCET) 5-325 MG tablet 1 tablet (COMPLETED) 1 tablet, Oral, Once, 1 dose, On Wed01/21/24 at 0100, Maximum dose of acetaminophen is 4000 mg from all sources in 24 hours. 0101 (Given - Provid er: Faustina Merida RN) PRN Medication Order 01/19/2024 01/20/2024 01/21/2024 oxyCODONE-acetaminophen (PERCOCET) 5-325 MG tablet 1 tablet (COMPLETED) 1 tablet, Oral, Every 4 hours PRN, Severe pain (Scale 8 - 10), 1 dose, Starting on Wed01/21/24 at 0050, Until Wed01/21/24 at 0110, MEDICATION FOR TAKE HOME 0110 (Given - Provid er: Faustina Merida RN - Comment: for take home use) documented in this encounter Care Teams Oven Press Tender Relationship Specialty Start Date End Date Lei Garcia MD [address] [place] [address] [address] [place] [address] PCP - General HOSPITALIST 05/05/23 Riley Cantu MD [address] [place] [address] [address] [place] [address] Physician INTERVENTIONAL CARDIOLOGY 06/12/21 documented as of this encounter
--- OUTSIDE RECORDS SUMMARY | 2024-08-13 22:22 | XMS_ITS | Encounter Summary ---
Author Organization [facility] Address [address] [place] [address]. 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 05/23/2021 FEROSUL 325 (65 Fe) MG tablet TAKE 1 TABLET BY MOUTH TWICE DAILY AFTER A MEAL 05/21/2022 levocetirizine (XYZAL ALLERGY 24HR) 5 MG tablet Take 1 tablet (5 mg total) by mouth. naloxone (NARCAN) 4 MG/0.1ML nasal spray 1 spray by Nasal route as needed for Opioid reversal. may repeat every 2 to 3 minutes in alternating nostrils until medical assistance becomes available 1 each 02/03/2024 oxyCODONE-acetam inophen (PERCOCET) 5-325 MG tabletIndication s:Acute Pain < 7 Day Supply Take 1 tablet by mouth every 4 (four) hours as needed for Pain. Indications: Acute Pain < 7 Day Supply 10 tablet 01/21/2024 oxyCODONE-acetam inophen (PERCOCET) 5-325 MG tabletIndication s:Acute Pain < 3 Day Supply Take 1-2 tablets by mouth every 4 (four) hours as needed for Pain. Indications: Acute Pain < 3 Day Supply For Severe Pain 8 tablet 02/03/2024 [place] 2.4 mg/dose injection (PEN) Inject 2.4 mg into the skin once a week. documented as of this encounter Plan of Treatment Not on file documented as of this encounter Procedures Procedure Name Priority Date/Time Associated Diagnosis Comments MRSA SCREENING Routine 01/25/2024 4:25 PM CDT Pre-op testing documented in this encounter Results * MRSA SCREENING (01/25/2024 4:25 PM CDT) SPEC DESCRIPTION NASAL 01/25/2024 4:17 PM CDT [facility] SPECIAL REQUESTS NO SPECIAL REQUEST 01/25/2024 4:17 PM CDT [facility] CULTURE RESULT NO MRSA ISOLATED 01/26/2024 8:42 PM CDT [facility] SPECIMEN FROM INTERNAL NOSE / Unknown 01/25/2024 4:25 PM CDT 01/25/2024 4:26 PM CDT us Soniya Barnes DPM MICROBIOLOGY - GENERAL ORDERAB LES Final Result [facility] [address] [facility] [place] [address], [place] [phone] documented in this encounter Visit Diagnoses Diagnosis Pre-op testing Preoperative examination, unspecified documented in this encounter Care Teams Truck Technician Relationship Specialty Start Date End Date Lei Garcia MD [address] [facility], [facility] [address] [place] [address] PCP - General HOSPITALIST 05/05/23 Riley Cantu MD [address] [facility], [facility] [address] [place], [place] [address] Physician INTERVENTIONAL CARDIOLOGY 06/12/21 documented as of this encounter
--- OUTSIDE RECORDS SUMMARY | 2024-08-13 22:22 | XMS_ITS | Encounter Summary ---
Author Organization [facility] Address [facility] [place] [address] [place] [address] Care Team Providers Care Automatic Casting Machine Operator Name Role Phone Riley Cantu MD Unavailable [phone] Lei Gracia MD Primary Care Provider [phone] Encounter Details Date Type Department Care Team (Latest Contact Info) Description 01/25/2024 Travel Social History Tobacco Use Types Packs/Day Years Used Date Smoking Tobacco: Never Alcohol Use Standard Drinks/Week Comments Yes 0 (1 standard drink = 0.6 oz pur e alcohol) socially PHQ-2 Answer Date Recorded Patient Health Questionnaire-2 Score 0 10/30/2022 Comments No Sex and Gender Information Value Date Recorded Sex Assigned at Not on file 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 Gender Identity Not on file Sexual Orientation Not on file 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
--- OUTSIDE RECORDS SUMMARY | 2024-08-13 22:22 | XMS_ITS | Encounter Summary ---
Author Organization [facility] Address [address] [place] [address]. [place] [address] [place] [address] Care Team Providers Care Deckhand Sponge Boat Name Role Phone Sosa Haines MD Primary Care Provider [phone] Riley Cantu MD Unavailable [phone] Reason for Referral * Procedure (Routine) - Closed Specialty Diagnoses / Procedures Referred By Mirella lua Referred To Contact Diagnoses Vasovagal syncope Procedures Cardiology Stress Test Only, Exercise [facility] [address] [place] [address] Phone: tel: Referral ID Status Reason Start Date Expiration Date Visits Re quested Visits Authorized [id number] Closed 07/25/2021 08/25/2022 [address] RAILRO[address] CAR Reason for Visit * Imaging (Routine) - Closed Specialty Diagnoses / Procedures Referred By Mirella lua Referred To Contact RADIOLOGY Diagnoses Vasovagal syncope Procedures USE STRESS ECHO W CON USE STRESS ECHO Riley Cantu MD [address] [facility] [address] [place] [address] Phone: tel: fax: Referral ID Status Reason Start Date Expiration Date Visits Re quested Visits Authorized [id number] Closed 07/25/2021 01/21/2022 2 2 Encounter Details Date Type Department Care Team (Latest Contact Info) Description 07/25/2021 10:13 AM PAINTER RAILROAD CAR - 07/25/2021 11:59 PM PAINTER RAILROAD CAR Hospital Encounter [facility] [address] [place] [address] Riley Cantu MD [address] [facility] [address] [place] [address] Discharge Disposition: Home or Self Care (Routine Discharge) Social History Tobacco Use Types Packs/Day Years Used Date Smoking Tobacco: Never Alcohol Use Standard Drinks/Week Comments Not Currently 0 (1 standard drink = 0.6 oz pur e alcohol) Comments Unknown Sex and Gender Information Value Date Recorded Sex Assigned at Not on file Legal Sex Female 9:24 PM PAINTER RAILROAD CAR Gender Identity Not on file Sexual Orientation Not on file 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 No / Unsure 07/25/2021 10:12 AM PAINTER RAILROAD CAR documented as of this encounter Last Filed Vital Signs Vital Sign Reading Time Taken Comments Blood Pressure - - Pulse - - Temperature - - Respiratory Rate - - Oxygen Saturation - - Inhaled Oxygen Concentration - - Weight 77.6 kg (171 lb) 07/25/2021 10:29 AM PAINTER RAILROAD CAR Height 162.6 cm (5' 4 ) 07/25/2021 10:29 AM PAINTER RAILROAD CAR Body Mass Index 29.35 07/25/2021 10:29 AM PAINTER RAILROAD CAR documented in this encounter Medications at Time of Discharge cyanocobalamin 1000 MCG/ML injection Inject into the muscle monthly. 05/23/2021 multi vitamin/minerals tablet Take 1 tablet by mouth daily. 01/25/2024 documented as of this encounter Plan of Treatment Not on file documented as of this encounter Procedures Procedure Name Priority Date/Time Associated Diagnosis Comments USE STRESS ECHO W CON Routine 07/25/2021 11:20 AM PAINTER RAILROAD CAR Vasovagal syncope CARDIOLOGY STRESS TEST ONLY, EXERCISE Routine 07/25/2021 10:30 AM PAINTER RAILROAD CAR Vasovagal syncope documented in this encounter Visit Diagnoses Diagnosis Vasovagal syncope- Primary Syncope and collapse documented in this encounter Administered Medications Inactive Administered Medications - up to 3 most recent administrations Medication Order MAR Action Action Date Dose Rate Site perflutren lipid microsphere (DEFINITY) injection 1 mL 1 mL, Intravenous, IMG once as needed, Contrast, 1 dose, Starting on Wed07/25/21 at 1030, Until Wed07/25/21 at 1049, Administer over 30-60 seconds. Follow with 10 mL saline flush.Indications:Vasovagal syncope Given 07/25/2021 10:49 AM PAINTER RAILROAD CAR 1 mL documented in this encounter Care Teams Deckhand Sponge Boat Relationship Specialty Start Date End Date Sosa Haines MD [address] [place] [address] PCP - General INTERNAL MEDICINE 06/12/21 05/04/23 Riley Cantu MD [address] [facility] [address] [place] [address] Physician INTERVENTIONAL CARDIOLOGY 06/12/21 documented as of this encounter
--- OUTSIDE RECORDS SUMMARY | 2024-08-13 22:22 | XMS_ITS | Encounter Summary ---
Author Organization [facility] Address [address] [place] [address]. [place] [address] [place] [address] Care Team Providers Care Mind Reader Name Role Phone Riley Cantu MD Unavailable [phone] Lei Garcia MD Primary Care Provider [phone] Reason for Visit * Auth/Cert Specialty Diagnoses / Procedures Referred By Mirella lua Referred To Contact Diagnoses proximal phalanx fractur Procedures PERCUT BIG TOE FX CLOSED REDUCTION OF PROXIMAL PHALANX FRACTURE SECOND TOE POSSIBLE OPEN REDUCTION INTERNAL FIXATION OF PROXIMAL PHALANX FRACTURE Soniya Lopez DPM [address] [place] [address] Phone: tel: fax: Referral ID Status Reason Start Date Expiration Date Visits Re quested Visits Authorized [id number] 1 1 Encounter Details Date Type Department Care Team (Latest Contact Info) Description 02/03/2024 6:28 AM CDT - 02/03/2024 10:06 AM CDT Hospital Encounter [facility] [address] [place] [address] Soniya Lopez DPM [address] [place] [address] Discharge Disposition: Home or Self [...] on file 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 Gender Identity Not on file Sexual Orientation Not on file 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 Not on file Not on file documented as of this encounter Last Filed Vital Signs Vital Sign Reading Time Taken Comments Blood Pressure 104/59 02/03/2024 9:44 AM CDT Pulse 79 02/03/2024 9:44 AM CDT Temperature 36.4 ??C (97.5 ??F) 02/03/2024 9:44 AM CD T Respiratory Rate 16 02/03/2024 9:44 AM CDT Oxygen Saturation 100% 02/03/2024 9:44 AM CDT Inhaled Oxygen Concentration - - Weight 71.2 kg (157 lb) 02/03/2024 7:06 AM CDT Height 160 cm (5' 2.99 ) 02/03/2024 7:06 AM CDT Body Mass Index 27.82 02/03/2024 7:06 AM CDT documented in this encounter Discharge Instructions * Attachments The following attachments cannot be sent through Care Everywhere. * Closed Fracture Reduction Discharge Instructions (Cuban) * Surgical Wound Discharge Instructions (Cuban) * Oxycodone and Acetaminophen, ADULT (Cuban) documented in this encounter Medications at Time [...] a week. documented as of this encounter Progress Notes * Soniya Lopez DPM - 02/03/2024 7:11 AM CDT History and Physical Name: Christina Pinto Age: 43-year-old Sex: female Chief Complaint/History of Present Illness Patient presents with: fracture left second digit that has failed conservative therapy. History Medications Prior to Admission Medication Sig Dispense Refill levocetirizine (XYZAL ALLERGY 24HR) 5 MG tablet Take 1 tablet (5 mg total) by mouth. oxyCODONE-acetaminophen (PERCOCET) 5-325 MG tablet Take 1 tablet by mouth every 4 (four) hours as needed for Pain. Indications: Acute Pain < 7 Day Supply 10 tablet 0 WEGOVY 2.4 mg/dose injection (PEN) Inject 2.4 mg into the skin once a week. cyanocobalamin 1000 MCG/ML injection Inject into the muscle monthly. FEROSUL 325 (65 Fe) MG tablet TAKE 1 TABLET BY MOUTH TWICE DAILY AFTER A MEAL (Patient not taking: Reported on 10/30/2022) Allergies Allergen Reactions Amoxil [Amoxicillin] Hives Penicillins Hives Wellbutrin [Bupropion] Hives Review of Systems Exam Filed Vitals: 01/25/24 1542 02/03/24 0706 BP: 109/61 Pulse: 76 Resp: 16 Temp: 97.6 ??F (36.4 ??C) TempSrc: Tympanic SpO2: 100% Weight: 71.2 kg (157 lb) 71.2 kg (157 lb) Height: 1.6 m (5' 3 ) 1.6 m (5' 2.99 ) exam Vascular: Dorsalis pedis and posterior tibial pulses are graded at 2/4 with digital hair growth present bilateral. CFT with the leg elevated was less than 3 seconds at the distal hallux bilateral. There is no evidence of ischemic skin changes. Temperature was warm at anterior tibia to warm at the distal digits bilateral. Neurological: Patient alert and oriented x 3, with appropriate affect, no anxiety or depression. Coordination WNL to right and left lower extremity. Exam reveals epicritic sensation is intact along defined dermatomes to protective threshold. Dermatological: No edema, erythema, ecchymosis, open lesions, interdigital macerations or signs of infection evident at this time bilaterally. Musculoskeletal: Stable foot posture without obvious structural deformities noted bilateral. Good muscle strength to all prime movers of the foot and ankle with adequate muscle tone and symmetry bilateral. Full, fluid range of motion for all joints from the ankle distal with no crepitation noted bilaterally. Pain to left second digit Assessment and Plan Fracture left second digit Plan is for closed reduction left second digit with possible open reduction internal fixation left second digit. The procedure, risks, benefits, and possible complications have been discussed with the patient and all questions have been answered at this time. The patient wishes to continue with surgical treatment today. SONIYA LOPEZ DPM documented in this encounter H&P Notes * Soniya Lopez DPM - 02/03/2024 7:22 AM CDT Images from the original note were not included. HISTORY AND PHYSICAL INTERVAL NOTE: I have reviewed Christina Pinto History & Physical which was performed within the past 30 days.After examining Christina Pinto, no change has occurred in the patient's condition since the H&P was completed. Informed Consent Discussion: Potential benefits, risks, and side effects of the patient's procedure/surgery; the likelihood of the patient achieving his or her goals; and any potential problems that might occur during recuperation were discussed with the patient/family/personal service representative. Reasonable alternatives to the patient's proposed procedure/surgery including benefits, risks, and side effects related to the alternatives and the risks related to not receiving the proposed care were also discussed with the patient/family/personal service representative. Questions were answered and the patient /family/personal service representative verbalized understanding and desires to proceed. documented in this encounter OR Notes * Op Note - Soniya Lopez DPM - 02/03/2024 8:42 AM CDT DATE: 02/03/24 /SURGEON: Dr. Soniya Lopez /ASSISTANTS: none PRE- OP DIAGNOSIS: Fracture left second digit. POST-OP DIAGNOSIS: same PROCEDURE: Closed reduction with percutaneous pinning left second digit PATHOLOGY: none ANESTHESIA: MAC with Local HEMOSTASIS: Pneumatic Ankle Thigh tourniquet ESTIMATED BLOOD LOSS: minimal <5 CC MATERIALS: 1 0.045 K wire INJECTABLES: 20 CC of a 1:1 mixture of 1% lidocaine 0.5% Marcain plain COMPLICATIONS: none Procedure in Detail: Patient was brought to the operating room placed operating table in the supine position well-paddedpneumatic ankle tourniquet was placed on patient's left ankle following IV sedation local anesthesia was obtained of the patient's left second ray utilizing approximately 10 cc of 1 on extremities lidocaine 0.5% Marcaine. The left foot was then scrubbed prepped and draped in usual aseptic manner. Attention was then directed to the patient's left second digit. Where utilizing a C arm for fluoroscopic guidance and a 0.045 K wire the second digit proximal phalanx distal and proximal fractures were closed reduced. And pinned in a closed reduction close reduction was verified utilizing fluoroscopic guidance. Both AP and lateral views were taken Adaptic followed by 4 x 4's and Kerlix was applied prompt hyperemic response was noted to all digits of the patient's left t foot the dressing was then reinforced with Coban. Patient tolerated the procedure and anesthesia well. Patient was transported to the recovery room vital signs stable vascular status intact to all digits of the Left foot. Patient was given prescriptions for pain management. Millstone 5/325 30 tabs to be taken PO PC q 4-6 hours prn pain- Mild Zofran 8 mg Patient is Weight bearing in a cam boot Patient will follow up in 1 week. documented in this encounter Plan of Treatment Not on file documented as of this encounter Procedures Procedure Name Priority Date/Time Associated Diagnosis Comments PERCUT BIG TOE FX 02/03/2024 7:3 0 AM CDT proximal phalanx fractur Special Needs Pt moved from 01/26 to 02/02 r/t insurance. Pt is aware of 0630 arrival time and to hold Wegovy until after her surgery. TEST URINE Routine 02/03/2024 6:53 AM CDT documented in this encounter Results * TEST URINE (02/03/2024 6:53 AM CDT) URINE HCG TEST NEGATIVE NEGATIVE 02/03/2024 7:08 AM CDT [facility] Comment: VERY DILUTE URINE SPECIMENS MAY NOT CONTAIN INORGANIC CHEMIST LEVELS OF HCG. IF IS STILL SUSPECTED, A SERUM HCG TEST IS RECOMMENDED. URINE SPECIMEN FROM URETHRA / Unknown 02/03/2024 6:53 AM CDT us Karly A Steve PHYSICS TEACHER URINE ORDERABLES Final Result [facility] [address] [place] [address], [place] [phone] * MRSA SCREENING (01/25/2024 4:25 PM CDT) SPEC DESCRIPTION NASAL 01/25/2024 4:17 PM CDT [facility] SPECIAL REQUESTS NO SPECIAL REQUEST 01/25/2024 4:17 PM CDT [facility] CULTURE RESULT NO MRSA ISOLATED 01/26/2024 8:42 PM CDT [facility] SPECIMEN FROM INTERNAL NOSE / Unknown 01/25/2024 4:25 PM CDT 01/25/2024 4:26 PM CDT us Soniya Thouvenot DPM MICROBIOLOGY - GENERAL ORDERAB LES Final Result [facility] [address] [place] [address], [place] [phone] documented in this encounter Visit Diagnoses Diagnosis Pre-op testing- Primary Preoperative examination, unspecified S/P foot surgery Other postprocedural status documented in this encounter Administered Medications Inactive Administered Medications - up to 3 most recent administrations Medication Order MAR Action Action Date Dose Rate Site clindamycin (CLEOCIN) 600 mg in D5W 50 mL IVPB 600 mg, Intravenous, at 100 mL/hr, Every 8 hours, First dose on Janay 02/03/24 at 0800, Until Discontinued Given 02/03/2024 7:41 AM CDT 600 mg lactated ringers infusion at 10 mL/hr, Intravenous, Continuous, Starting on Janay 02/03/24 at 0715, Until Janay 02/03/24 at 1207, Infuse at TKO rate, Pre-Op Restarted 02/03/2024 8:18 AM CDT Continued by Anesthesia 02/03/2024 7:37 AM CDT 10 mL/hr New Bag 02/03/2024 7:25 AM CDT 10 mL/hr documented in this encounter Active and Recently Administered Medications Times are shown in CDT. Scheduled Medication Order 02/01/2024 02/02/2024 02/03/2024 clindamycin (CLEOCIN) 600 mg in D5W 50 mL IVPB 600 mg, Intravenous, at 100 mL/hr, Every 8 hours, First dose on Janay 02/03/24 at 0800, Until Discontinued 0741 (Given - Provid er: Vitaliy Castano CRNA)0800 (Canceled Entry - Provider: Automatic Discharge Provider - Comment: Automatically canceled at discontinue of medication order) Continuous Medication Order 02/01/2024 02/02/2024 02/03/2024 lactated ringers infusion at 10 mL/hr, Intravenous, Continuous, Starting on Janay 02/03/24 at 0715, Until Janay 02/03/24 at 1207, Infuse at TKO rate, Pre-Op 0725 (New Bag - Prov ider: Sandy Mendez RN)0737 (Continued by Anesthesia - Provider: Vitaliy Castano CRNA)0817 (Paused - Provider: Vitaliy Castano CRNA - Comment: Switch to gravity)0818 (Restarted - Provider: Vitaliy Castano CRNA)0947 (Infusion Stop Time - Provider: Sandy Mendez RN) PRN Medication Order 02/01/2024 02/02/2024 02/03/2024 BUpivacaine (PF) (MARCAINE) 10 mL, lidocaine (XYLOCAINE) 2 % 10 mL solution (CANCELED) As needed, Starting on Janay 02/03/24 at 0750, Until Janay 02/03/24 at 0818, Intra-Op 0750 (Given - Provid er: Soniya Lopez DPM) documented in this encounter Care Teams Mind Reader Relationship Specialty Start Date End Date Lei Garcia MD [address] [place] [address], [address] [address] PCP - General HOSPITALIST 05/05/23 Riley Cantu MD [address] [place] [address], [address] [address] Physician INTERVENTIONAL CARDIOLOGY 06/12/21 documented as of this encounter
--- OUTSIDE RECORDS SUMMARY | 2024-08-13 22:22 | XMS_ITS | Encounter Summary ---
Author Organization [facility] Address [address] [place] [address]. [place] [address] [place] [address] Care Team Providers Care Chalk Extruding Machine Operator Name Role Phone Riley Cantu MD Unavailable [phone] Lei Garcia MD Primary Care Provider Reason for Visit * Auth/Cert Specialty Diagnoses / Procedures Referred By Mirella lua Referred To Contact Diagnoses proximal phalanx fractur Procedures PERCUT BIG TOE FX CLOSED REDUCTION OF PROXIMAL PHALANX FRACTURE SECOND TOE POSSIBLE OPEN REDUCTION INTERNAL FIXATION OF PROXIMAL PHALANX FRACTURE Soniya Barnes, DPM [address] [place] [address] Phone: tel: fax: Referral ID Status Reason Start Date Expiration Date Visits Re quested Visits Authorized [id number] 1 1 Encounter Details Date Type Department Care Team (Late st Contact Info) Description 02/03/2024 7:37 AM CDT Anesthesia Event [facility] [address] [place] [address] Vitaliy Castano CRNA [address] [place] [address] Karly Wilson CRNA [address] [place] [address] Anesthesia Record Procedure Summary Procedure Name Responsible Anesthesiologist Anesthesia Start Time Anesthesia Stop Time CLOSED REDUCTION OF PROXIMAL PHALANX FRACTURE SECOND TOE (Left: Toe) Vitaliy Castano CRNA 02/03/24 0737 02/03/24 0818 Events Date Time Event Comment 02/03/2024 0711 0711 AN COSMETIC DENTIST Prepped 0737 An Start Patient ID and consent checked and patient reassessed. 0737 An Start Data 0738 AN Immediate Reassess The pa tient was reevaluated immediately before sedation or regional anesthesia. 0739 Face Mask Applied 0742 Anesthesia Ready 0818 An Stop 0818 an stop data Meds Name Total midazolam 2 mg/2 mL injection 2 mg fentaNYL (SUBLIMAZE) 100 mcg/2 mL inject ion 50 mcg lidocaine (PF) (XYLOCAINE) 1% injection 30 mg propofol (DIPRIVAN) 200 mg/20 mL injecti on 240.91 mg clindamycin (CLEOCIN) 600 mg in D5W 50 m L IVPB 600 mg lactated ringers infusion 400 mL * Agents No agents on file. * Blood No blood administrations on file. Lines, Drains, and Airways Type Details Placement Removal Peripheral IV Placement Date: 02/03/24; Placement Time: 717; Placed Outside of This Facility?: No; Size: 20 G; Orientation: Right; Location: Forearm; Site Prep: Chlorhexidine; Local Anesthetic: None; Insertion attempts: 2; Ultrasound-guided Placement?: No; Patient Tolerance: Tolerated well; Removal Date: 02/03/24; Removal Time: 943; Removal Reason: Patient Discharged 02/03/24 0718 by Sandy Mendez RN 02/03/24943 by Sandy Mendez RN Surgical/Incision 02/03/24; 0811; Surg ical Wound; Foot; Left; DRESSING XEROFORM 1 X 8, DRESSING SPONGE 4X4, DRESSING KERLIX 4.5 ROLL, DRESSING COBAN 3; 02/03/24; 44; Other(Comment) (Patient discharged.) 02/03/24 08 by Peri Mahajan RN 02/03/24943 by Sandy Mendez RN documented in this encounter Social History Tobacco Use Types Packs/Day Years Used Date Smoking Tobacco: Never Alcohol Use Standard Drinks/Week Comments Yes 0 (1 standard drink = 0.6 oz pur e alcohol) socially PHQ-2 Answer Date Recorded Patient Health Questionnaire-2 Score 0 10/30/2022 Comments No Sex and Gender Information Value Date Recorded Sex Assigned at Not on file 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 Gender Identity Not on file Sexual Orientation Not on file 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 Not on file Not on file documented as of this encounter OR Notes * Anesthesia Postprocedure Evaluation - Vitaliy Castano CRNA - 02/03/2024 8:26 AM CDT Anesthesia Post-op Note Christina Ting Pinto Procedure(s): CLOSED REDUCTION OF PROXIMAL PHALANX FRACTURE SECOND TOE (Left:Toe) Anesthesia type: MAC Vitals: 02/03/24 0818 BP: 90/58 Vitals: 02/03/24 0818 Pulse: 80 Vitals: 02/03/24 0818 Resp: 16 Vitals: 02/03/24 0706 Temp: 36.4 ??C Vitals: 02/03/24 0818 SpO2: 100% Patient Location: Phase II/Outpatient Level of Consciousness: awake, alert and oriented Pain Management: adequate analgesia Airway Patency: patent Respiratory Status: acceptable Cardiovascular Status: acceptable Post-Op Nausea: none Postoperative Hydration: euvolemic There were no known notable events for this encounter. * Anesthesia Preprocedure Evaluation - Karly Wilson CRNA - 01/26/2024 11:23 AM CDT Anesthesia ROS/MED History Reviewed: Patient summary , Nursing notes , Family history anesthesia, Anesthesia history , Medications Pre-Anesthetic State: alert, awake and responds appropriately Pulmonary (+) sleep apnea Cardiovascular Exercise tolerance:good Neuro/Psych (+) anxiety Substance Use GI/Hepatic/Renal Endo/Other (+) blood dyscrasia, (Anemia) GENERAL COMMENTS Vertigo Vasovagal syncope NPO Status: Physical Evaluation Airway Mallampati: I TM Distance: >3 FB Neck ROM: normal Dental No notable dental history Pulmonary Breath sounds clear to auscultation Cardiovascular Rhythm: regular Rate: normal STOP-Bang Assessment: Anesthesia Plan ASA 3 Intravenous Induction Anesthesia type: MAC Plan for Airway: nasal cannula/simple face mask Informed Consent Anesthetic plan and risks discussed with patient of whom consent was obtained. . documented in this encounter Plan of Treatment Not on file documented as of this encounter Visit Diagnoses Not on filedocumented in this encounter Administered Medications Inactive Administered Medications - up to 3 most recent administrations Medication Order MAR Action Action Date Dose Rate Site clindamycin (CLEOCIN) 600 mg in D5W 50 mL IVPB 600 mg, Intravenous, at 100 mL/hr, Every 8 hours, First dose on Janay 02/03/24 at 0800, Until Discontinued Given 02/03/2024 7:41 AM CDT 600 mg fentaNYL (SUBLIMAZE) injection Intravenous, PRN, Starting on Janay 02/03/24 at 0739, Until Janay 02/03/24 at 0818, Anesthesia Intra-Op Given 02/03/2024 7:39 AM CDT 50 mcg lactated ringers infusion at 10 mL/hr, Intravenous, Continuous, Starting on Janay 02/03/24 at 0715, Until Janay 02/03/24 at 1207, Infuse at TKO rate, Pre-Op Restarted 02/03/2024 8:18 AM CDT Continued by Anesthesia 02/03/2024 7:37 AM CDT 10 mL/hr New Bag 02/03/2024 7:25 AM CDT 10 mL/hr lidocaine (PF) (XYLOCAINE) 1 % injection Intravenous, PRN, Starting on Janay 02/03/24 at 0739, Until Janay 02/03/24 at 0818, Anesthesia Intra-Op Given 02/03/2024 7:39 AM CDT 30 mg midazolam (VERSED) injection Intravenous, PRN, Starting on Janay 02/03/24 at 0739, Until Janay 02/03/24 at 0818, Anesthesia Intra-Op Given 02/03/2024 7:39 AM CDT 2 mg propofol (DIPRIVAN) IV bolus Intravenous, PRN, Starting on Janay 02/03/24 at 0739, Until Janay 02/03/24 at 0818, Anesthesia Intra-Op Rate/Dose Change 02/03/2024 7:48 AM CDT 100 mcg/kg/min 42.72 mL/hr New Bag 02/03/2024 7:45 AM CDT 120 mcg/kg/min 51.264 mL /hr Given 02/03/2024 7:42 AM CDT 40 mg documented in this encounter Care Teams Chalk Extruding Machine Operator Relationship Specialty Start Date End Date Lei Garcia MD [address] , [address] [address] PCP - General HOSPITALIST 05/05/23 Riley Cantu MD [address] , [facility] [address] [address] Physician INTERVENTIONAL CARDIOLOGY 06/12/21 documented as of this encounter
--- OUTSIDE RECORDS SUMMARY | 2024-08-13 22:22 | XMS_ITS | Encounter Summary ---
Author Organization [facility] Address [address] [place] [address]. [place] [address] [place] [address] Care Team Providers Care Wellness Instructor Name Role Phone Sosa Haines MD Primary Care Provider [phone] Riley Cantu MD Unavailable [phone] Reason for Visit * Reason Comments Holter Monitor Report (SCAN) Encounter Details Date Type Department Care Team (Late st Contact Info) Description 02/07/2020 Scan [facility] [address] [place] [address] Scanned, Documents Holter Monitor Report (SCAN) Social History Tobacco Use Types Packs/Day Years Used Date Smoking Tobacco: Never Assessed Comments Unknown Sex and Gender Information Value Date Recorded Sex Assigned at Not on file 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 No / Unsure 11/06/2021 9:02 AM CDT documented as of this encounter Plan of Treatment Not on file documented as of this encounter Procedures Procedure Name Priority Date/Time Associated Diagnosis Comments HOLTER DOCUMENT (SCAN ORDER) Routine 02/07/2020 documented in this encounter Results * HOLTER DOCUMENT (02/07/2020) us Documents Scanned SCANNING Final Result Performing Organization Address [facility]/State/ZIP Co de Phone Number [facility] documented in this encounter Visit Diagnoses Not on filedocumented in this encounter Care Teams Wellness Instructor Relationship Specialty Start Date End Date Sosa Haines MD [address] [place] [address] PCP - General INTERNAL MEDICINE 06/12/21 05/04/23 Riley Cantu MD [address] [facility] [address] [address] Physician INTERVENTIONAL CARDIOLOGY 06/12/21 documented as of this encounter
--- OUTSIDE RECORDS SUMMARY | 2024-08-13 22:22 | XMS_ITS | Encounter Summary ---
Author Organization [facility] Address [facility] [place] [address] [place] [address] Care Team Providers Care Shipmaster Name Role Phone Riley Cantu MD Unavailable [phone] Lei Garcia MD Primary Care Provider [phone] Encounter Details Date Type Department Care Team (Latest Contact Info) Description 02/01/2024 Travel Social History Tobacco Use Types Packs/Day Years Used Date Smoking Tobacco: Never Alcohol Use Standard Drinks/Week Comments Yes 0 (1 standard drink = 0.6 oz pur e alcohol) socially PHQ-2 Answer Date Recorded Patient Health Questionnaire-2 Score 0 10/30/2022 Comments No Sex and Gender Information Value Date Recorded Sex Assigned at Not on file 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 Gender Identity Not on file Sexual Orientation Not on file 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
--- OUTSIDE RECORDS SUMMARY | 2024-08-13 22:22 | XMS_ITS | Encounter Summary ---
Author Organization [facility] Address [facility] [place] [address] [place] [address] Care Team Providers Care Cotton Gin Yard Supervisor Name Role Phone Riley Cantu MD Unavailable [phone] Lei Garcia MD Primary Care Provider [phone] Encounter Details Date Type Department Care Team (Latest Contact Info) Description 02/03/2024 Travel Social History Tobacco Use Types Packs/Day Years Used Date Smoking Tobacco: Never Alcohol Use Standard Drinks/Week Comments Yes 0 (1 standard drink = 0.6 oz pur e alcohol) socially PHQ-2 Answer Date Recorded Patient Health Questionnaire-2 Score 0 10/30/2022 Comments No Sex and Gender Information Value Date Recorded Sex Assigned at Not on file 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 Gender Identity Not on file Sexual Orientation Not on file 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
--- OUTSIDE RECORDS SUMMARY | 2024-08-13 22:22 | XMS_ITS | Encounter Summary ---
Author Organization [facility] Address [address] [place] [address]. [place] [address] [place] [address] Care Team Providers Care Lathmaker Name Role Phone Sosa Haines MD Primary Care Provider [phone] Riley Cantu MD Unavailable [phone] Reason for Visit * Reason Onset Date Comments Record Request 10/06/2021 Encounter Details Date Type Department Care Team ([facility] st Contact Info) Description 10/06/2021 Telephone [facility] [address] [place] [address] Riley Cantu MD [address] [facility] [address] [place] [address] Record Request Social History Tobacco Use Types Packs/Day Years Used Date Smoking Tobacco: Never Alcohol Use Standard Drinks/Week Comments Not Currently 0 (1 standard drink = 0.6 oz pur e alcohol) Comments Unknown Sex and Gender Information Value Date Recorded Sex Assigned at Not on file Legal Sex Female 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 No / Unsure 10/06/2021 11:02 AM FARM EQUIPMENT SERVICE TECHNICIAN documented as of this encounter Progress Notes * Adrianna Amaya RN - 10/14/2021 3:54 PM CST Received and put in [facility]'s basket EQUIPMENT SERVICE TECHNICIAN * Alissa Calixto RN - 10/14/2021 10:35 AM CST Received and placed in inbox in [facility] office. EQUIPMENT SERVICE TECHNICIAN * Alissa Lancaster RN - 10/10/2021 4:[address] Haines's office to get results faxed to our office. Message was sent to their office to have holter readings faxed EQUIPMENT SERVICE TECHNICIAN * Adrianna Amaya RN - 10/06/2021 12:26 PM CST SC record request. Requested holter monitor tracing. Office will fax and will call back if they have any questions. EQUIPMENT SERVICE TECHNICIAN documented in this encounter Plan of Treatment Not on file documented as of this encounter Visit Diagnoses Not on filedocumented in this encounter Care Teams Lathmaker Relationship Specialty Start Date End Date Sosa Haines MD [address] [place] [address] PCP - General INTERNAL MEDICINE 06/12/21 05/04/23 Riley Cantu MD [address] [facility] [address] [place] [address] Physician INTERVENTIONAL CARDIOLOGY 06/12/21 documented as of this encounter
--- OUTSIDE RECORDS SUMMARY | 2024-08-13 22:22 | XMS_ITS | Continuity of Care Document ---
Author Organization [place] - [facility] Address [address] [place] [address] Care Team Providers Care Paper Final Inspector Name Role Phone LEI GARCIA Primary Care Provider [phone] Assessment Encounter Date Assessment Date Assessment LastModified [...] different options for her. Cont f/u with Oyster Bed Worker at [place] as per schedule. Cont f/u with GI as per schedule. Cont f/u with ENT as per schedule. Offered to refer to Uro; but pt declined. HM: WWE - 06/30/22, normal. Cont f/u with PAPER REEL OPERATOR/Gyne as per schedule. Mammo - 07/22/22, normal. Ordered again. Colonoscopy - Referred. Flu - 05/22/24. Tdap - 2018. F/u in 2-3 weeks. Annual labs in 06/02. Not available 05/22/2024 14:33:38 Plan of Treatment Reminders Order Date Submit Date Provider Last Modified By Organization Details Last Modified Time Details Appointments Follow Up 15 2024 11:00A M Lei Garcia MD Not available Not available Not available Lab uric acid, serum or plasma [address] (Lab), [address] [place], [address], 05/29/2024 07:53:05 iron + TIBC + ferritin, serum [address] (Lab), [address] [place], [address], 05/29/2024 07:53:04 CBC w/ auto diff [address] (Lab), [address] [place], [address], 05/29/2024 07:53:03 CMP, serum or plasma [address] (Lab), [address] [place], [address], 05/29/2024 07:53:04 lipid panel, serum [address] (Lab), [address] [place], [address], 05/29/2024 07:53:04 TSH, serum, reflex free T4 [address] (Lab), [address] [place], [address], 05/29/2024 07:53:04 urinalysi s complete, reflex culture [address] (Lab), [address] [place], [address], 05/29/2024 07:53:04 magnesium , serum or plasma [address] (Lab), [address] [place], [address], 05/29/2024 07:53:05 vitamin B12 + folate, serum or blood [address] (Lab), [address] [place], [address], 05/29/2024 07:53:04 HbA1c (hemoglob in A1c), blood 2023 024 [facility] (Lab), [address] [place], [address], 06/06/2024 10:31:36 Referral None recorded. Procedures None recorded. Surgeries None recorded. Imaging MAMMO, screening , bilateral - Chronic constipat ion too. [address] , [place], [address], 06/05/2024 08:54:03 XR, abdomen, 2 view - Chronic constipat ion and abdominal bloating [address] , [place], [address], 05/29/2024 08:50:14 Medication Orders ferrous sulfate 325 mg (65 mg iron) tablet 2023 [facility]/Pharmacy #[id number], [address], [address], 05/22/2024 14:23:59 docusate sodium 100 mg capsule 2023 024 [facility]/Pharmacy #[id number], [address] [place] [address], [address], 05/22/2024 14:23:18 polyethyl genaro glycol 3350 17 gram/dose oral powder 2023 024 [facility]/Pharmacy #[id number], [address] [facility], [place], [address], 07/14/2024 09:54:08 Wegovy 2.4 mg/0.75 mL subcutane ous pen injector 2023 024 [facility]/Pharmacy #[id number], [address] [facility], [place], [address], 05/22/2024 14:23:21 Patient TargetsNo targets recorded. Patient Instructions Encounter Date Encounter Id Patient Instructions Last Modified By Organization Details Last Modified Time 05/22/2024 [id number] iron-rich diet: care instructions [email or web address] Not available 05/22/2024 14:23:12 Reason for Referral None Reported. Results Created Date Observation Date Name Description Value Unit Range Abnormal Flag Note LastModifiedBy Organization Detail LastModifiedTime 05/22/20 24 xr obstu ction s serie s no chest [facility] [address] [place] [address] Patien t Name: [facility] Access ion #: [id number] Sex: F : 1979 5 9 Dictat ed By: Jerod silva Attend ing Physic zuleima: ERA GARCIA Orderfidelia martinez Physic zuleima: ERA GARCIA Exam Date: 2023 16:41 PM Exam Name: XR OBSTUC TIONS SERIES NO CHEST Admitt ing Diagno sis(es ): EXAM: XR OBSTUC TIONS SERIES NO CHEST DATE OF SERVIC E: 2023 04:41 PM Orderi ng Physic zuleima: ERA GARCIA REASON FOR EXAM: consti pation TECHNI QUE: 3 views of the abdome [...] at 2023 17:27: 24 PM Page 1 [email or web address] [facility] ([facility]) [address] [place], [address], 05/23/2024 11:57:31 Result Notes None recorded. Problems Name Problem SNOMED Code Status Onset Date Resolution Date Notes Provider Name and Address Organization Details Recorded Time Microscopic hematuria 448622709 Active 2021 Not Available [facility] 3 01:24:34 Anemia 568128148 Active 2021 Not Available [facility] 3 01:24:34 History of recurrent tonsillitis 210032763 Active 2021 Not Available [facility] 3 01:24:35 Vitamin B12 deficiency (non anemic) 31954723 Active 2021 Not Available [facility] 3 01:24:35 History of bypass of stomach 292913316 Active 2021 Not Available [facility] 3 01:24:35 Chronic idiopathic constipation 18911601 Active 2021 Not Available [facility] 3 01:24:35 Fatigue 70240412 Active 2022 Lei Garcia MD [address] [facility], [place], [address] , [facility] [employer] [facility] 3 10:45:01 Sleep apnea 83297829 Active 2022 Lei Garcia MD [address], [place], [address] , [employer] 3 10:09:41 Overweight 764352442 Active 2023 Lei Garcia MD [address], [place], [address] , [employer] 4 11:39:42 Fracture of foot 15705191 Active 2023 Lei Garcia MD [address], [place], [address] , [employer] 4 10:40:11 Obesity 009102820 Active 2023 Lei Garcia MD [address], [place], [address] , [employer] 4 11:43:45 Recurrent skin infection 182029629 Active 2023 Lei Garcia MD [address], [place], [address] , [employer] 4 11:52:24 Dysmenorrhea 156928603 Active 2023 MABEL Cortes [address], [place], [address] , [employer] 4 10:23:29 Problem Notes None recorded. Procedures Surgical History Date Name Laterality Status Provider Name and Address Organization Details Recorded Time 07/22/20 22 TONSILLECTOMY (SURG) completed Not Available [facility] 10/08/2022 01:26:17 07/09/20 22 Date of Last Mammogram completed Lei Garcia MD [address], [place], [address], [employer] 05/04/2023 10:44:22 08/09/19 12 Gastric Bypass completed Not Available [facility] 10/08 01:23:33 08/09/19 04 Gallbladder Surgery completed Not Available [facility] 10/08/2022 01:23:33 Imaging Results None recorded. Procedure Notes None recorded. Medical Equipment None Reported. Allergies Allergen ID Allergen Name Allergen Category Reaction Reaction Severity Criticality Documentation Date Start Date Code Code System Note Provider Name and Address Organization Details Recorded Time 83630 Wellbutri n medicatio n rash severe Not available 10/08/2022 37906 RxNorm Not Available [facility] 3 01:26:09 10503 Medicinal product containin g penicilli n and acting as antibacte rial agent (product) medicatio n hives severe Not available 10/08/2022 71167 05 SNOMED Not Available [facility] 3 01:26:09 07544 amoxicill in medicatio n hives severe Not available 10/08/2022 723 RxNorm Not Available [facility] 3 01:26:10 89304 amoxicill in trihydrat e medicatio n Not available Not available Not available 10/29/2023 79417 8 RxNorm Alicia Lan RN null, [place] - [facility] 4 09:00:40 Medications Name Sig Start Date [...] Updated DateTime 4 162.56 cm 25.1 kg/m2 35764.5 9 g 98.2 [degF] 98.1 /min 20 /min 99 % 99 % 104 mm[Hg] 70 mm[Hg] Hira Grier [employer] 4 14:13:13 Social History Question Answer Notes LastModified by Organizat ion Details LastModified Time Tobacco Smoking Status Never Smoker Nayana cline, [employer] 08/19/2023 11:04:45 Do You Have An Advance Directive? No [id number] Information not available 10/08/2022 What Is Your Level Of Alcohol Consumption? None [id number] Information not available 10/08/2022 Do You Wear A Helmet When Biking? No Information not available 08/19/2023 What Is Your Level Of Caffeine Consumption? Heavy [id number] Information not available 10/08/2022 In The 14 Days Before Symptom Onset, Have You Had Close Contact With A Laboratory-confi ed COVID-19 While That Case Was Ill? No Information not available 08/19/2023 In The 14 Days Before Symptom Onset, Have You Had Close Contact With A Person Who Is Under Investigation For COVID-19 While That Person Was Ill? No Information not available 08/19/2023 Are You Currently Employed? Yes Information not available 07/14/2024 What Type Of Diet Are You Following? 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 No Information not available 08/19/2023 How Many Children Do You Have? 2 Information not available 07/14/2024 Do You Have Any Pets? Yes Information not available 08/19/2023 What Is Your Relationship Status? [id number] Information not available 10/08/2022 Do You Use [...] Anxious, Or Unable To Sleep At Night)? [id number] Information not available 08/19/2023 Do You Use [...] Time What is your exercise level? None [id number] Information not available 10/08/2022 Mental Status None recorded. Family History Relationship Description Onset Age of this Age Resolved Age Notes LastModified by Organization Details LastModified Time Son Tonsillectom y Not available 06/12 11:22:20 Daughter Tonsillectom y [email or web address] Not available 06/12 11:22:20 Sister Tonsillectom y [email or web address] Not available 06/12 11:22:20 Sister Tonsillectom y [email or web address] Not available 06/12 11:22:21 Father Enlarged tonsil [email or web address] Not available 06/12 11:22:21 Mother Malignant tumor of breast 57 58 [id number] Not available 10/08/2022 01:23:34 Paternal Aunt Malignant tumor of breast [email or web address] Not available 06/12 11:22:21 Paternal Grandfather Malignant tumor of colon [email or web address] Not available 06/12 11:22:21 Maternal Grandfather Malignant tumor of colon Not available 06/12 11:22:21 Paternal Grandmother Myocardial infarction 45 45 [id number] Not available 10/08/2022 01:23:35 Medical History Condition Response MRSA N SLEEP APNEA Y ALLERGIES/HAYFEVER N LUNG DISEASE/DISORDER N HISTORY OF DRUG ABUSE N INSOMNIA N COPD N RADIATION / CHEMOTHERAPY N HIGH CHOLESTEROL / HYPERLIPIDEMIA N HYPERTHYROIDISM N BLOOD DISEASES N EAR OR HEARING PROBLEMS N HYPOTHYROIDISM N SHINGLES N DEPRESSION (INCLUDING POST ) N HAVE YOU BEEN HOSPITALIZED OR SEEN IN [facility] ER IN THE PAST YEAR [...] virus, quadrivalent, PF 05/04/2023 completed Hira cline [facility] 05/04/2023 16:57:47 Influenza, split virus, trivalent, PF 05/22/2024 completed Hira cline [facility] 05/22/2024 16:46:39 Past Encounters Encounter ID Performer Location Encounter Start Date Encounter Closed Date Diagnosis/Indication Diagnosis SNOMED-CT Code Diagnosis ICD10 Code [id number] Lei Garcia MD [facility] [address] [address] 05/22/2024 13:59:49 05/22/2024 14:39:34 Chronic idiopathic constipation 51662418 K59.04 Anemia 424287455 D64.9 Obesity 587139186 E66.9 History of bypass of stomach 420344859 Z98.84 Vitamin B1 2 deficiency (non anemic) 64861866 E53.8 Fatigue 45141524 R53.83 Fracture of foot 6751642 5 S92.902D Adult heal th examination 033384812 Z00.00 Administra tion of influenza vaccine 93057579 Z23 Screening mammography 24 946675 Z12.31 Health Concerns Section Related Observation LastModified by Organization Detai ls LastModified Time None Recorded Concern Status LastModified by Organization Details LastModified Time None Recorded Payers Encounter Date Sequence Insurance Name Policy Number Policy Price Covered Member ID Price Member ID Guarantor Name 05/22/2024 1 [employer] - OPEN ACCESS Christina Pinto [id number] Christina Pinto Notes Date Note Type Note Provider Name and Address Organization Details Recorded Time 05/22/2024 text/html Pt is here for her annual exam. Doing overall well. Denies any [...] on Cpap for it. Lei Garcia MD [address] [place] [address], [facility] [address], [place], [address], [place] [facility] 05/22/2024 14:35:57 OBGyn Episode No OBEpisode recorded.
--- OUTSIDE RECORDS SUMMARY | 2024-08-13 22:22 | XMS_ITS | Encounter Summary ---
Author Organization [facility] Address [address] [place] [address]. 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 No / Unsure 09/23/2022 8:22 AM STATISTICAL MACHINE MECHANIC documented as of this encounter Plan of Treatment Not on file documented as of this encounter Visit Diagnoses Not on filedocumented in this encounter Additional Health Concerns Infection Onset Date Last Indicated Resolved Time COVID-19 Rule Out 09/23/2022 09/23/2022 09/23/2022 10:13 AM STATISTICAL MACHINE MECHANIC documented as of this encounter Care Teams Butadiene Converter Operator Relationship Specialty Start Date End Date Sosa Haines MD [address] [place] [address] PCP - General INTERNAL MEDICINE 06/12/21 05/04/23 Riley Cantu MD [address] [facility] [address] [address] Physician INTERVENTIONAL CARDIOLOGY 06/12/21 documented as of this encounter
--- OUTSIDE RECORDS SUMMARY | 2024-08-13 22:22 | XMS_ITS | Encounter Summary ---
Author Organization [facility] Address Counts include 234 beds at the [facility] [place] [address] [place] [address] Care Team Providers Care Transport Medic Name Role Phone Riley Cantu MD Unavailable Lei Garcia MD Primary Care Provider [phone] Encounter Details Date Type Department Care Team (Late st Contact Info) Description 05/05/2023 Orders Only [facility] [address] [place], [place] [id number] Lei Garcia MD [address] [place] [address] Social History Tobacco Use Types Packs/Day Years Used Date Smoking Tobacco: Never Alcohol Use Standard Drinks/Week Comments Not Currently 0 (1 standard drink = 0.6 oz pur e alcohol) PHQ-2 Answer Date Recorded Patient Health Questionnaire-2 Score 0 10/30/2022 Comments Unknown Sex and Gender Information Value Date Recorded Sex Assigned at Not on file 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 Sex 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 Gender Identity Not on file Sexual Orientation Not on file 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 Not on file Not on file documented as of this encounter Plan of Treatment Not on file documented as of this encounter Results * (ABNORMAL) URINALYSIS WI REFLEX TO CULTURE (05/05/2023 9:19 AM CDT) COLOR (U) YELLOW 05/05/2023 10:12 AM [facility] TRANSPARENCY CLEAR 05/05/2023 10:12 AM [facility] SPECIFIC GRAVITY (U) 1.010 1.000 - 1.030 05/05/2023 10:12 AM [facility] U PH 7.5 5.0 - 9.0 05/05/2023 10:12 AM [facility] LEUKOCYTES (U) NEGATIVE NEGATIVE 05/05/2023 10:12 AM [facility] NITRITES NEGATIVE NEGATIVE 05/05/2023 10:12 AM [facility] PROTEIN RANDOM (U) NEGATIVE NEGATIVE 05/05/2023 10:12 AM [facility] GLUCOSE (U) NEGATIVE NEGATIVE 05/05/2023 10:12 AM [facility] KETONES MG/DL (U) NEGATIVE NEGATIVE 05/05/2023 10:12 AM [facility] BILIRUBIN (U) NEGATIVE NEGATIVE 05/05/2023 10:12 AM [facility] BLOOD (U) TRACE(A) NEGATIVE 05/05/2023 10:12 AM [facility] WBC/HPF NONE SEEN 0 - 5 /HPF 05/05/2023 10:12 AM [facility] RBC/HPF 0-5 0 - 5 /HPF 05/05/2023 10:12 AM [facility] EPI/HPF FEW /HPF 05/05/2023 10:12 AM [facility] CULTURE & SENSITIVITY INDICATED? CULTURE IS NOT INDICATED 05/05/2023 10:12 AM [facility] URINE SPECIMEN OBTAINED BY CLEAN CATCH PROCEDURE / Unknown 05/05/2023 9:19 AM CDT Lei Garcia MD URINE ORDERABLES Final Result Performing Organization Address [facility] Co de Phone Number [facility] [address] [place] [address], [place] [phone] * VITAMIN D, 25 OH (05/05/2023 9:12 AM CDT) VITAMIN D 25 HYDROXY S/P/B 30 30 - 100 NG/ML 05/05/2023 10:07 AM CDT [facility] Comment: ? INTERPRETATION ? DEFICIENT ??<20 ? INSUFFICIENT 20-29 ?SUFFICIENT 30-100 05/05/2023 9:12 AM CDT Lei Garcia MD LABORATORY Final Result Performing Organization Address [facility] de Phone Number [facility] [address] [place] [address], * (ABNORMAL) VITAMIN B12 / FOLATE (05/05/2023 9:12 AM CDT) VITAMIN B12 S/P/B 242 193 - 986 PG/ML 05/05/2023 10:11 AM CDT [facility] FOLATE 8.0(L) 8.6 - 58.9 NG/ML 05/05/2023 10:11 AM CDT [facility] 05/05/2023 9:12 AM CDT Lei Garcia MD LABORATORY Final Result Performing Organization Address City/[facility] Co de Phone Number [facility] [address] [place] [address], [place] [phone] * (ABNORMAL) HEMOGLOBIN, GLYCOSYLATED (05/05/2023 9:12 AM CDT) HGB A1C 5.8(H) <5.7 % 05/05/2023 9:47 AM CDT [facility] Comment: INCREASED RISK OF DIABETES <5.7% ?NON-DIABETES 5.7-6.4% INCREASED RISK FOR FUTURE DIABETES > OR = 6.5 CONSISTENT WITH DIABETES STANDARDS OF MEDICAL CARE IN DIABETES-2010 DIABETES CARE, 33(SUPP 1): S1-S61,2010 ESTIMATED AVG GLUCOSE 120 mg/dL 05/05/2023 9:47 AM CDT [facility] 05/05/2023 9:12 AM CDT us Lei Garcia MD LABORATORY Final Result [facility] [address] [place] [address], [place] [phone] * IRON SAT PANEL (IRON,IBC,%SAT) (05/05/2023 9:12 AM CDT) IRON 66 50 - 170 MCG/DL 05/05/2023 9:45 AM CDT [facility] IRON BINDING CAPACITY 330 250 - 450 MCG/DL 05/05/2023 9:45 AM CDT [facility] IRON SATURATION 20 20 - 55 % 9:45 AM CDT [facility] 05/05/2023 9:12 AM CDT us Lei Garcia MD LABORATORY Final Result [facility] [address] [place] [address], * TSH W/REFLEX (05/05/2023 9:12 AM CDT) TSH 1.697 0.358 - 3.74 uIU/ML 05/05/2023 9:58 AM CDT [facility] Comment: HIGH DOSES OF BIOTIN MAY INTERFERE WITH THIS TEST RESULT. CORRELATION TO CLINICAL HISTORY AND PRESENTATION RECOMMENDED. FREE T4 NOT INDICATED 05/05/2023 9:12 AM CDT Lei Garcia MD LABORATORY Final Result [facility] [address] [place] [address], * LIPID PANEL (05/05/2023 9:12 AM CDT) CHOLESTEROL 128 <200.0 MG/DL 05/05/2023 9:58 AM CDT [facility] TRIGLYCERIDES 69 <150 MG/DL 05/05/2023 9:58 AM CDT [facility] HDL 55 >40.0 MG/DL 05/05/2023 9:58 AM CDT [facility] LDL (CALCULATED) 59 <100 MG/DL 05/05/20 9:58 AM CDT [facility] NON HDL CHOLESTEROL 73 <130 MG/DL 05/05 9:58 AM CDT [facility] CHOL/HDL RATIO 2.3 0.0 - 4.5 05/05/2023 9:58 AM CDT [facility] VLDL CALCULATION 14 5 - 55 MG/DL 05/05/2023 9:58 AM CDT [facility] LIPID INTERPRETATION 05/05/2023 9:58 AM CDT [facility] Comment: [facility] CON[facility]ENS[facility] REPORT RECOMMENDATIONS: ?ADULT ?CHILD ??LOW RISK: ?CHOLESTEROL ? <200 ? <170 ?TRIGLYCERIDE ?<150 ?--- ?HDL ? >=60 ?--- ?LDL ? <100 ? <110 ??BORDERLINE: ?CHOLESTEROL ? 200-239 ?? 170-199 ?TRIGLYCERIDE ?150-199 ? --- ?HDL ?40-59 ?--- ?LDL ? 100-159 ?? 110-129 ??HIGH RISK: ?CHOLESTEROL ? >=240 ?>=200 ?TRIGLYCERIDE ?>=200 ? --- ?HDL ?<40 ?--- ?LDL ? >=160 ?>=130 05/05/2023 9:12 AM CDT us Lei Garcia MD LABORATORY Final Result [facility] () [facility] [address] [place] [address], [place] [phone] * (ABNORMAL) COMPREHENSIVE METABOLIC PANEL (05/05/2023 9:12 AM CDT) [facility] GLUCOSE 92 70 - 99 MG/DL 05/05/2023 9:58 AM CDT [facility] BUN 9 7 - 18 MG/DL 05/05/2023 9:58 AM T [facility] CREATININE S/P/B 0.76 0.55 - 1.02 MG/DL 05/05/2023 9:58 AM T [facility] SODIUM S/P/B 139 136 - 145 MMOL/L 05/05/2023 9:58 AM T [facility] POTASSIUM S/P/B 4.1 3.5 - 5.1 MMOL/L 05/05/2023 9:58 AM T [facility] CHLORIDE S/P/B 103 100 - 108 MMOL/L 05/05/2023 9:58 AM T [facility] CO2 28.6 21 - 32 MMOL/L 05/05/2023 9:58 AM T [facility] CALCIUM S/P/B 8.7 8.5 - 10.1 MG/DL 05/05/2023 9:58 AM T [facility] BILIRUBIN TOTAL S/P/B 0.5 0.2 - 1.2 MG/DL 05/05/2023 9:58 AM T [facility] TOTAL PROTEIN S/P/B 7.3 6.4 - 8.2 G/DL 05/05/2023 9:58 AM T [facility] ALBUMIN S/P/B 3.4 3.4 - 5.0 G/DL 05/05/2023 9:58 AM T [facility] AST 14(L) 15 - 37 U/L 05/05/2023 9:58 AM CDT [facility] ALT 15 14 - 55 U/L 05/05/2023 9:58 AM CDT [facility] ALKALINE PHOSPHATASE S/P/B 111 50 - 136 U/L 05/05/2023 9:58 AM CDT [facility] ANION GAP 7.4 5 - 15 MMOL/L 05/05/2023 9:58 AM CDT [facility] BUN CREATININE RATIO 11.8 6 - 26 05/05/2023 9:58 AM CDT [facility] A/G RATIO 0.9(L) 1.0 - 2.0 RATIO 05/05/2023 9:58 AM CDT [facility] GFR ESTIMATE >90 >90 ML/MIN/1.7 3 M2 05/05/2023 9:58 AM T [facility] Comment: NOTE: eGFR is not calculated for patients <18 years of age. This is an estimated GFR calculation using the new CKD EPI creatinine equation without race and so does not require a correction factor for race. This estimated GFR should not be used for calculating drug doses. 05/05/2023 9:12 AM CDT Lei Garcia MD LABORATORY Final Result [facility] [address] [place] [address], * (ABNORMAL) CBC W/DIFF AUTOMATED (05/05/2023 9:12 AM CDT) WBC 6.17 4.4 - 11.0 x10'3/uL 05/05/2023 9:29 AM CDT [facility] RBC 4.12(L) 4.50 - 5.10 x10'6/uL 05/05/2023 9:29 AM CDT [facility] HGB 11.7(L) 12.3 - 15.3 G/DL 05/05/2023 9:29 AM CDT [facility] HCT 36.1 35.9 - 44.6 % 05/05/2023 9:29 AM T [facility] MCV 87.6 80.0 - 96.0 FL 05/05/2023 9:29 AM CDT [facility] MCH 28.4 25.3 - 30.9 PG 05/05/2023 9:29 AM T [facility] MCHC 32.4 31.0 - 34.1 G/DL 05/05/2023 9:29 AM T [facility] RDW 12.8 12.4 - 15.1 % 05/05/2023 9:29 AM [facility] PLT 253 151 - 353 x10'3/uL 05/05/2023 9:29 AM T [facility] MPV 10.8 9.6 - 12.0 FL 05/05/2023 9:29 AM T [facility] RBC MORPHOLOGY NORMAL 05/05/2023 9:29 AM T [facility] PLT MORPH. NORMAL 05/05/2023 9:29 AM T [facility] WBC MORPHOLOGY NORMAL 05/05/2023 9:29 AM T [facility] LYMPHOCYTES % 33.1 15.8 - 45.0 % 05/05/2023 9:29 AM T [facility] NEUTROPHILS % 56.5 42.1 - 71.9 % 05/05/2023 9:29 AM T [facility] MONOCYTES % 7.5 5.7 - 12.5 % 05/05/2023 9:29 AM T [facility] EOSINOPHILS 1.8 0.0 - 5.6 % 05/05/2023 9:29 AM CDT [facility] BASOPHILS 0.8 0.0 - 1.3 % 05/05/2023 9:29 AM CDT [facility] ABS. NEUTROPHILS 3.49 1.40 - 6.00 x10'3/uL 05/05/2023 9:29 AM CDT [facility] IMMATURE GRANS % 0.3 0.0 - 0.5 % 05/05/2023 9:29 AM CDT [facility] ABS. LYMPHOCYTES 2.04 0.80 - 4.70 x10'3/uL 05/05/2023 9:29 AM CDT [facility] 05/05/2023 9:12 AM CDT Lei Garcia MD LABORATORY Final Result Performing Organization Address City/State/[facility] Co de Phone Number [facility] [address] [place] [address], documented in this encounter Visit Diagnoses Diagnosis Encounter for general adult medical examination without abnormal findings- Primary Unspecified general medical examination Anemia, unspecified Obesity, unspecified Deficiency of other specified B group vitamins Fatigue Other malaise and fatigue documented in this encounter Care Teams Transport Medic Relationship Specialty Start Date End Date Lei Garcia MD [address] [address] PCP - General HOSPITALIST 05/05/23 Riley Cantu MD [address] [address] Physician INTERVENTIONAL CARDIOLOGY 06/12/21 documented as of this encounter
--- OUTSIDE RECORDS SUMMARY | 2024-08-13 22:22 | XMS_ITS | Encounter Summary ---
Author Organization [place] Address Count includes the [facility] [place] [address] [place] [address] Care Team Providers Care Guest Services Ambassador Name Role Phone Riley Cantu MD Unavailable [phone] Lei Garcia MD Primary Care Provider [phone] Encounter Details Date Type Department Care Team (Latest Contact Info) Description 01/20/2024 Travel Social History Tobacco Use Types Packs/Day Years Used Date Smoking Tobacco: Never Alcohol Use Standard Drinks/Week Comments Yes 0 (1 standard drink = 0.6 oz pur e alcohol) socially PHQ-2 Answer Date Recorded Patient Health Questionnaire-2 Score 0 10/30/2022 Comments No Sex and Gender Information Value Date Recorded Sex Assigned at Not on file 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 , [facility] [address] [place] [address] PCP - General HOSPITALIST 05/05/23 Riley Cantu MD [address] [facility] [address] [place] [address] Physician INTERVENTIONAL CARDIOLOGY 06/12/21 documented as of this encounter
--- OUTSIDE RECORDS SUMMARY | 2024-08-13 22:22 | XMS_ITS | Encounter Summary ---
Author Organization [facility] Address [address] [place] [address]. [place] [address] [place] [address] Care Team Providers Care Field Agent Name Role Phone Sosa Haines MD Primary Care Provider [phone] Riley Cantu MD Unavailable [phone] Reason for Visit * Reason Onset Date Comments Appointment Request 06/12/2021 Encounter Details Date Type Department Care Team ([facility] st Contact Info) Description 06/12/2021 Telephone [facility] ld [address] [place] [address] Riley Cantu MD [address] 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 06/12/[address] Haines [phone]/Office note insurance info, Labs EKG and CT scan requestedSR 06/12?? Labs, EKG and head CT here-sent unsigned note-called for signed copy MJF 06/13 Signed clinic note here MJ * Meryl Lyons RN - 06/12/2021 1:52 PM CDT Referral Source: Dr. Haines Insurance: [employer] Hearing Aids Caller: Dolores Caller Symptoms/Consult for: Syncope Request Records-fax to [phone]: yes Current PCC Patient: no Recent hospitalizations: no Ever seen a buffing and sueding machine operator in the past: no Requested appt timeframe: Pearson Provider Recent testing/labs: yes Appt Date/time: 06/25/2021 at 1:00 Provider:Pepe Covid+Test or Exposure in last 14 days: no MyChart offered: no Letter/WS mailed/NA: yes Care Team: yes documented in this encounter Plan of Treatment Not on file documented as of this encounter Visit Diagnoses Not on filedocumented in this encounter Care Teams Field Agent Relationship Specialty Start Date End Date Sosa Haines MD [address] [place] [address] PCP - General INTERNAL MEDICINE 06/12/21 05/04/23 Riley Cantu MD [address] [facility] [address] [place] [address] Physician INTERVENTIONAL CARDIOLOGY 06/12/21 documented as of this encounter
--- OUTSIDE RECORDS SUMMARY | 2024-08-13 22:22 | XMS_ITS | Encounter Summary ---
Author Organization [facility] Address [address] [place] [address]. 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 No / Unsure 10/06/2021 11:02 AM RN MENTAL HEALTH documented as of this encounter Plan of Treatment Not on file documented as of this encounter Visit Diagnoses Not on filedocumented in this encounter Care Teams Plastics Factory Worker Relationship Specialty Start Date End Date Sosa Haines MD [address] [place] [address] PCP - General INTERNAL MEDICINE 06/12/21 05/04/23 Riley Cantu MD [address] [address] Physician INTERVENTIONAL CARDIOLOGY 06/12/21 documented as of this encounter
--- OUTSIDE RECORDS SUMMARY | 2024-08-13 22:22 | XMS_ITS | Encounter Summary ---
Author Organization [facility] Address [address] [place] [address]. [place] [address] [place] [address] Care Team Providers Care Clinical Transformation Specialist Name Role Phone Sosa Haines MD Primary Care Provider [phone] Riley Cantu MD Unavailable [phone] Reason for Visit * Reason Comments Sore Throat Sx started around nd Sinus Problem Headache Encounter Details Date Type Department Care Team (Late st Contact Info) Description 10/30/2022 10:40 AM CDT Office Visit [facility] [id number] [place] [phone] [place] [address] [place] [address] [place] [address] [address] [facility] [address], [address] [place], [place] [id number] Sore Throat (Sx started around wednesday); Sinus Problem; Headache Social History Tobacco Use Types Packs/Day Years Used Date Smoking Tobacco: Never Alcohol Use Standard Drinks/Week Comments Not Currently 0 (1 standard drink = 0.6 oz pur e alcohol) PHQ-2 Answer Date Recorded Patient Health Questionnaire-2 Score 0 10/30/2022 Comments Unknown Sex and Gender Information Value Date Recorded Sex Assigned at Not on file 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 No / Unsure 10/30/2022 9:42 AM CDT documented as of this encounter Last Filed Vital Signs Vital Sign Reading Time Taken Comments Blood Pressure 119/79 10/30/2022 9:55 AM CDT Pulse 80 10/30/2022 9:55 AM CDT Temperature 36.6 ??C (97.8 ??F) 10/30/2022 9:55 AM CD T Respiratory Rate 18 10/30/2022 9:55 AM CDT Oxygen Saturation 98% 10/30/2022 9:55 AM CDT Inhaled Oxygen Concentration - - Weight 84.4 kg (186 lb) 10/30/2022 9:55 AM CDT Height 162.6 cm (5' 4 ) 10/30/2022 9:55 AM CDT Body Mass Index 31.93 10/30/2022 9:55 AM CDT documented in this encounter Progress Notes * Tosin Martin NP - 10/30/2022 10:40 AM CDT Reason for Visit: Sore Throat (Sx started around wednesday), Sinus Problem, and Headache History of Present Illness: Sore throat- st, n/c, sinus pressure. No cough. No fevers. No rash. No otc meds. Daughter has same symptoms. ROS: Review of Systems Constitutional: Negative for chills, fever and malaise/fatigue. HENT: Positive for congestion, sinus pain and sore throat. Negative for ear pain. Respiratory: Negative for cough and shortness of breath. Cardiovascular: Negative for chest pain. Gastrointestinal: Negative for abdominal pain, diarrhea, nausea and vomiting. Skin: Negative for rash. Medications: Current Outpatient Medications: ??? cyanocobalamin 1000 MCG/ML injection, Inject into the muscle monthly., Disp: , Rfl: ??? FEROSUL 325 (65 Fe) MG tablet, TAKE 1 TABLET BY MOUTH TWICE DAILY AFTER A MEAL (Patient not taking: Reported on 10/30/2022), Disp: , Rfl: ??? multi vitamin/minerals tablet, Take 1 tablet by mouth daily. (Patient not taking: Reported on 10/30/2022), Disp: , Rfl: ??? nitrofurantoin, macrocrystal-monohydrate, (MACROBID) 100 MG capsule, , Disp: , Rfl: ??? Phentermine HCl 30 MG Cap, , Disp: , Rfl: Allergies Allergen Reactions ??? Amoxil [Amoxicillin] Hives ??? Penicillins Hives ??? Wellbutrin [Bupropion] Hives Past Medical History: Diagnosis Date ??? Anemia ??? Anxiety ??? Benign paroxysmal positional vertigo ??? Sleep apnea ??? Syncope ??? TMJ dysfunction ??? Vitamin B12 deficiency Past Surgical History: Procedure Laterality Date ??? APPENDECTOMY ??? GALLBLADDER SURGERY ??? GASTRIC BYPASS ??? TONSILLECTOMY Social History Socioeconomic History ??? Marital status: ??? Number of children: 3 Occupational History ??? 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 Smoking status: Never Substance Use Topics ??? Alcohol use: Not Currently ??? Drug use: Never Family History Problem Relation Name Age of Onset ??? Diabetes Mother ??? Breast Cancer Mother ??? Other (brain cancer) Mother ??? Stroke Father ??? Diabetes Father ??? Thyroid Disease Sister ??? Cancer Other fm hx ??? Diabetes Other fm hx ??? Colon Cancer Other fm hx ??? Kidney Disease Other fm hx ??? Hypertension Other fm hx ??? Stroke Other fm hx ??? Other (cardia disorder) Other fm hx ??? Heart Attack Maternal Grandmother Family Status Relation Name Status ??? Mother ??? Father (Not Specified) ??? Sister (Not Specified) ??? Other fm hx Alive ??? MGM ??? MGF ??? PGM ??? PGF Filed Vitals: 10/30/22 0955 BP: 119/79 Pulse: 80 Resp: 18 Temp: 97.8 ??F (36.6 ??C) TempSrc: Temporal SpO2: 98% Weight: 84.4 kg (186 lb) Height: 5' 4 (1.626 m) Physical Exam Vitals and nursing note reviewed. Constitutional: Appearance: Normal appearance. HENT: Head: Normocephalic and atraumatic. Right Ear: Tympanic membrane and ear canal normal. Left Ear: Tympanic membrane and ear canal normal. Nose: Congestion present. Right sinus exhibits no maxillary sinus tenderness and no frontal sinus tenderness. Left sinus exhibits no maxillary sinus tenderness and no frontal sinus tenderness. Mouth/Throat: Mucous membranes are moist. Posterior oropharyngeal erythema present. Oropharynx is clear. Eyes: Conjunctiva/sclera: Conjunctivae normal. Pupils: Pupils are equal, round, and reactive to light. Cardiovascular: Rate and Rhythm: Normal rate and regular rhythm. Heart sounds: Normal heart sounds. Pulmonary: Effort: Pulmonary effort is normal. Breath sounds: Normal breath sounds. Musculoskeletal: Cervical back: Neck supple. Lymphadenopathy: Cervical: No cervical adenopathy. Skin: General: Skin is warm and dry. Neurological: Mental Status: She is alert. Psychiatric: Behavior: Behavior is cooperative. Results for orders placed or performed in visit on 10/30/22 RAPID STREP A Specimen: THROAT Result Value Ref Range RAPID STREP TEST NEGATIVE NEGATIVE Internal Control: VALID VALID CORONAVIRUS (COVID-19) INFLUENZA A & B ANTIGEN IA PANEL Specimen: NASAL Result Value Ref Range CORONAVIRUS ANTIGEN IA NEGATIVE NEGATIVE INFLUENZA A NEGATIVE NEGATIVE INFLUENZA B NEGATIVE NEGATIVE Internal Control: VALID VALID Diagnoses/Impression: 1. Sore throat RAPID STREP A CORONAVIRUS (COVID-19) INFLUENZA A & B ANTIGEN IA PANEL CULTURE STREP A 2. Suspected COVID-19 virus infection CORONAVIRUS (COVID-19) INFLUENZA A & B ANTIGEN IA PANEL 3. Viral upper respiratory tract infection Recommendations and Plan: 1. Sore throat - RAPID STREP A-- negative - CORONAVIRUS (COVID-19) INFLUENZA A & B ANTIGEN IA PANEL--negative - CULTURE STREP A; Future 2. Suspected COVID-19 virus infection - CORONAVIRUS (COVID-19) INFLUENZA A & B ANTIGEN IA PANEL 3. Viral upper respiratory tract infection You can take otc decongestants. Alternate tylenol and ibuprofen for any pain or fever. F/u with your pcp if no improvement. Orders Placed This Encounter ??? RAPID STREP A ? ? CORONAVIRUS (COVID-19) INFLUENZA A & B ANTIGEN IA PANEL ??? CULTURE STREP A I personally spent a total of 15 minutes on the day of the encounter. This includes [id number] and [id number]-face time I provided on the day of the encounter & excludes time spent performing separately reportable services. PIERO CASTAÑEDA documented in this encounter Plan of Treatment Not on file documented as of this encounter Procedures Procedure Name Priority Date/Time Associated Diagnosis Comments CORONAVIRUS (COVID-19) INFLUENZA A & B ANTIGEN IA PANEL Routine 10/30/2022 Sore throat Suspected COVID-19 virus infection RAPID STREP A Routine 10/30/2022 Sore throat documented in this encounter Results * CULTURE STREP A (10/30/2022 10:18 AM CDT) SPEC DESCRIPTION THROAT 10/30/2022 12:47 PM CDT [facility] SPECIAL REQUESTS NO SPECIAL REQUEST 10/30/2022 12:47 PM CDT [facility] CULTURE RESULT NO STREPTOCOCCUS PYOGENES (GROUP A) ISOLATED 11/01/2022 8:25 AM CDT [facility] THROAT SWAB / Unknown 10/30/2022 10:18 AM CDT 10/30/2022 1:19 PM CDT Tosin Martin NP MICROBIOLOGY - GENERAL ORDERAB LES Final Result [facility] [address] [place] [address], [place] [phone] [facility] [address] [place] [address], [place] [phone] * CORONAVIRUS (COVID-19) INFLUENZA A & B ANTIGEN IA PANEL (10/30/2022) CORONAVIRUS ANTIGEN IA NEGATIVE NEGATIVE [id number] [facility] INFLUENZA A NEGATIVE NEGATIVE [id number] JALEESAXLYUDITH BRAGG, WINSTED INFLUENZA B NEGATIVE NEGATIVE [id number], WINSTED Internal Control: VALID VALID [id number] JHON AVJerardo, WINSTED NASAL STRUCTURE / Unknown 10/30/2022 us Tosin Martin DISTRICT LEADER MICROBIOLOGY - GENERAL ORDERAB LES Final Result -[id number] JHON BRAGG, WINSTED [address] [place] [address], [place] [phone] * RAPID STREP A (10/30/2022) RAPID STREP TEST NEGATIVE NEGATIVE [id number] JHON BRAGG, WINSTED Internal Control: VALID VALID [id number] JALEESAXLYUDITH BRAGG, WINSTED STRUCTURE OF ANTERIOR PORTION OF NECK / Unknown 10/30/2022 Tosin Martin DISTRICT LEADER MICROBIOLOGY - GENERAL ORDERAB LES Final Result -[id number] JHON BRAGG WINSTED [address] [place] [address], [place] [phone] documented in this encounter Visit Diagnoses Diagnosis Sore throat- Primary Acute pharyngitis Suspected COVID-19 virus infection Viral upper respiratory tract infection Acute upper respiratory infections of unspecified site documented in this encounter Care Teams Clinical Transformation Specialist Relationship Specialty Start Date End Date Sosa Haines MD [address] [place] [address] PCP - General INTERNAL MEDICINE 06/12/21 05/04/23 Riley Cantu MD [address] [facility] [address] [place] [address] Physician INTERVENTIONAL CARDIOLOGY 06/12/21 documented as of this encounter
--- OUTSIDE RECORDS SUMMARY | 2024-08-13 22:22 | XMS_ITS | Encounter Summary ---
Author Organization [facility] Address [address] [place] [address]. [place] [address] [place] [address] Care Team Providers Care Irrigation Teacher Name Role Phone Sosa Haines MD Primary Care Provider [phone] Riley Cantu MD Unavailable [phone] Reason for Visit * Reason Onset Date Comments Results 08/27/2021 Encounter Details Date Type Department Care Team ([facility] st Contact Info) Description 08/27/2021 Telephone [facility] [address] [place] [address] Riley Cantu MD [address] [facility] [address] [place] [address] Results Social History Tobacco Use Types Packs/Day Years Used Date Smoking Tobacco: Never Alcohol Use Standard Drinks/Week Comments Not Currently 0 (1 standard drink = 0.6 oz pur e alcohol) Comments Unknown Sex and Gender Information Value Date Recorded Sex Assigned at Not on file 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 She is coming in on 09/03/21 for F/U to discuss EKG finding with Dr. PILOT * Aracelis Perera LPN - 08/27/2021 2:43 PM CST ----- Message from Riley Cantu MD sent at 08/17/2021 10:09 PM CAR PILOT ----- Dear Nurse, Please call patient. Please send a copy of this result to the PMD. Your testing shows that you do not have any blockages in the big artery, your EKG is mildly abnormal, the doctor would like to talk to you about this. Please make sure he has an appointment soon. [Virtual visit.] Continue current management Follow up as scheduled PILOT documented in this encounter Plan of Treatment Not on file documented as of this encounter Visit Diagnoses Not on filedocumented in this encounter Care Teams Irrigation Teacher Relationship Specialty Start Date End Date Sosa Haines MD [address] [place], [place] [id number] PCP - General INTERNAL MEDICINE 06/12/21 05/04/23 Riley Cantu MD [address] [address] Physician INTERVENTIONAL CARDIOLOGY 06/12/21 documented as of this encounter
--- OUTSIDE RECORDS SUMMARY | 2024-08-13 22:22 | XMS_ITS | Encounter Summary ---
Author Organization [facility] Address [address] [place] [address]. [place] [address] [place] [address] Care Team Providers Care Marketing Sales Representative Name Role Phone Sosa Haines MD Primary Care Provider [phone]- [phone] Riley Cantu MD Unavailable [phone] Reason for Visit * Reason Onset Date Comments Reschedule 09/02/2021 Encounter Details Date Type Department Care Team ([facility] st Contact Info) Description 09/02/2021 Telephone [facility] [address] [place] [address] Riley Cantu MD [address] [facility] [address] [place] [address] Reschedule Social History Tobacco Use Types Packs/Day Years Used Date Smoking Tobacco: Never Alcohol Use Standard Drinks/Week Comments Not Currently 0 (1 standard drink = 0.6 oz pur e alcohol) Comments Unknown Sex and Gender Information Value Date Recorded Sex Assigned at Not on file 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 No further questions. TY FIRE CHIEF * Braxton Matute LPN - 09/09/2021 11:43 AM CST LM for pt to see if she can come tomorrow at 9:45am instead of 10:45am as I am trying to move our patients up due to expected weather. TY FIRE CHIEF * Braxton Matute LPN - 09/02/2021 4:17 PM CST Spoke to pt, I rescheduled her f/u to 09/11/2021 @ 10:45pm . Pt v/u, no further questions. TY FIRE CHIEF documented in this encounter Plan of Treatment Not on file documented as of this encounter Visit Diagnoses Not on filedocumented in this encounter Care Teams Marketing Sales Representative Relationship Specialty Start Date End Date Sosa Haines MD [address] [place] [address] PCP - General INTERNAL MEDICINE 06/12/21 05/04/23 Riley Cantu MD [address] [facility] [address] [place] [address] Physician INTERVENTIONAL CARDIOLOGY 06/12/21 documented as of this encounter
--- OUTSIDE RECORDS SUMMARY | 2024-08-13 22:22 | XMS_ITS | Continuity of Care Document ---
Author Organization [place] [facility] Address [address] [place] [address] Care Team Providers Care Scheduling Coordinator Name Role Phone LEI GARCIA Primary Care Provider Assessment No assessment recorded. Plan of Treatment Reminders Order Date Submit Date Provider Last Modified By Organization Details Last Modified Time Details Appointments Follow Up 15 2024 11:00A M Lei Garcia MD Not available Not available Not available Lab None recorded . Referral None recorded . Procedures None recorded . Surgeries None recorded . Imaging None recorded . Medication Orders None recorded . Patient TargetsNo targets recorded. Patient InstructionsNo instructions recorded. Reason for Referral None Reported. Results Created Date Observation Date Name Description Value Unit Range Abnormal Flag Note LastModifiedBy Organization Detail LastModifiedTime 05/22/20 24 xr obstu ction s serie s no chest [facility] [address] [place] [address] Patien t Name: BEN PINTO [facility] Access ion #: [id number] Sex: F : 1979 5 [birth year] [...] Physic zuleima: ERA GARCIA REASON FOR EXAM: merle yoo TECHNI QUE: 3 views of the abdome n COMPAR GENNARO: None FINDIN GS: Nancy t has had prior surger y involv [...] at 2023 17:27: 24 PM Page 1 [email or web address] [facility] (Imaging) [address] [place], [address], 05/23/2024 11:57:31 Result Notes None recorded. Problems Name Problem SNOMED Code Status Onset Date Resolution Date Notes Provider Name and Address Organization Details Recorded Time Microscopic hematuria 656254974 Active 2021 Not Available [facility] 3 01:24:34 Anemia 149269146 Active 2021 Not Available [facility] 3 01:24:34 History of recurrent tonsillitis 375924312 Active 2021 Not Available [facility] 3 01:24:35 Vitamin B12 deficiency (non anemic) 43555087 Active 2021 Not Available [facility] 3 01:24:35 History of bypass of stomach 252951796 Active 2021 Not Available [facility] 3 01:24:35 Chronic idiopathic constipation 84546911 Active 2021 Not Available [facility] 3 01:24:35 Fatigue 61170397 Active 2022 Lei Garcia MD [address] [facility], [facility] [address], [place], [address] , [facility] 3 10:45:01 Sleep apnea 76551130 Active 2022 Lei Garcia MD [address], [place], [address] , [facility] 3 10:09:41 Overweight 997635934 Active 2023 Lei Garcia MD [address], [place], [address] , [facility] 4 11:39:42 Fracture of foot 65860996 Active 2023 Lei Garcia MD [address], [place], [address] , [facility] 4 10:40:11 Obesity 222654798 Active 2023 Lei Garcia MD [address], [place], [address] , [facility] 4 11:43:45 Recurrent skin infection 027769528 Active 2023 Lei Garcia MD [address], [place], [address] , [facility] 4 11:52:24 Dysmenorrhea 153720702 Active 2023 MABEL Cortes [address], [place], [address] , [facility] 4 10:23:29 Problem Notes None recorded. Procedures Surgical History Date Name Laterality Status Provider Name and Address Organization Details Recorded Time 07/22/20 TONSILLECTOMY (SURG) completed Not Available [facility] 10/08/2022 01:26:17 07/09/20 Date of Last Mammogram completed Lei Garcia MD [address], [place], [address], [email or web address] 05/04/2023 10:44:22 08/09/19 12 Gastric Bypass completed Not Available [facility] 10/08 01:23:33 08/09/19 04 Gallbladder Surgery completed Not Available [facility] 10/08/2022 01:23:33 Imaging Results None recorded. Procedure Notes None recorded. Medical Equipment None Reported. Allergies Allergen ID Allergen Name Allergen Category Reaction Reaction Severity Criticality Documentation Date Start Date Code Code System Note Provider Name and Address Organization Details Recorded Time 80287 Wellbutri n medicatio n rash severe Not available 10/08/2022 85598 RxNorm Not Available [facility] 3 01:26:09 23251 Medicinal product containin g penicilli n and acting as antibacte rial agent (product) medicatio n hives severe Not available 10/08/2022 66136 05 SNOMED Not Available [facility] 3 01:26:09 87346 amoxicill in medicatio n hives severe Not available 10/08/2022 723 RxNorm Not Available [facility] 3 01:26:10 55169 amoxicill in trihydrat e medicatio n Not available Not available Not available 10/29/2023 82589 8 RxNorm Alicia Lan RN [facility], [place] [facility] 4 09:00:40 Medications Name Sig Start Date [...] Not Available Not Available Not Available Vitals None Recorded Social History Question Answer Notes LastModified by Organizat ion Details LastModified Time Tobacco Smoking Status Never Smoker Nayana cline [place] [facility] 08/19/2023 11:04:45 Do You Have An Advance Directive? No [id number] Information not available 10/08/2022 What Is Your Level Of Alcohol Consumption? None [id number] Information not available 10/08/2022 Do You Wear A Helmet When Biking? No Information not available 08/19/2023 What Is Your Level Of Caffeine Consumption? Heavy [id number] Information not available 10/08/2022 In The 14 [...] Type Of Diet Are You Following? 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 No Information not available 08/19/2023 How Many Children Do You Have? 2 Information not available 07/14/2024 Do You Have Any Pets? Yes Information not available 08/19/2023 What Is Your Relationship Status? [id number] Information not available 10/08/2022 Do You Use [...] Anxious, Or Unable To Sleep At Night)? [id number] Information not available 08/19/2023 Do You Use [...] Time What is your exercise level? None [id number] Information not available 10/08/2022 Mental Status None recorded. Family History Relationship Description Onset Age of this Age Resolved Age Notes LastModified by Organization Details LastModified Time Son Tonsillectom y [email or web address] Not available 06/12 11:22:20 Daughter Tonsillectom y [email or web address] Not available 06/12 11:22:20 Sister Tonsillectom y [email or web address] Not available 06/12 11:22:20 Sister Tonsillectom y [email or web address] Not available 06/12 11:22:21 Father Enlarged tonsil [email or web address] Not available 06/12 11:22:21 Mother Malignant tumor of breast 57 58 [id number] Not available 10/08/2022 01:23:34 Paternal Aunt Malignant tumor of breast [email or web address] Not available 06/12 11:22:21 Paternal Grandfather Malignant tumor of colon [email or web address] Not available 06/12 11:22:21 Maternal Grandfather Malignant tumor of colon [email or web address] Not available 06/12 11:22:21 Paternal Grandmother Myocardial infarction 45 45 [id number] Not available 10/08/2022 01:23:35 Medical History Condition Response MRSA N SLEEP APNEA Y ALLERGIES/HAYFEVER N LUNG DISEASE/DISORDER N INSOMNIA N HISTORY OF DRUG ABUSE N RADIATION / CHEMOTHERAPY N COPD N HIGH CHOLESTEROL / HYPERLIPIDEMIA N HYPERTHYROIDISM N BLOOD DISEASES N EAR OR HEARING PROBLEMS N HYPOTHYROIDISM N SHINGLES N DEPRESSION (INCLUDING POST ) N HAVE YOU BEEN HOSPITALIZED OR SEEN IN [facility] IN THE PAST YEAR ? N STROKE/TIA [...] virus, quadrivalent, PF 05/07/2022 completed Not Available [facility] 01:26:03 Influenza, split virus, quadrivalent, PF 05/04/2023 completed Hira cline [facility] 05/04/2023 16:57:47 Influenza, split virus, trivalent, PF 05/22/2024 completed Hira cline [facility] 05/22/2024 16:46:39 Past Encounters Encounter ID Performer Location Encounter Start Date Encounter Closed Date Diagnosis/Indication Diagnosis SNOMED-CT Code Diagnosis ICD10 Code [id number] Lei Garcia MD [facility] [address] [address] 05/22/2024 13:59:49 05/22/2024 14:39:34 Chronic idiopathic constipation 17393731 K59.04 Anemia 438247516 D64.9 Obesity 618428450 E66.9 History of bypass of stomach 563610182 Z98.84 Vitamin B1 2 deficiency (non anemic) 45145049 E53.8 Fatigue 56180640 R53.83 Fracture of foot 8016842 5 S92.902D Adult heal th examination 001287351 Z00.00 Administra tion of influenza vaccine 69760061 Z23 Screening mammography 24 145593 Z12.31 [id number] Lei Garcia MD [facility] [address] [address] 06/05/2024 09:46:28 06/05/2024 17:43:54 Health Concerns Section Related Observation LastModified by Organization Detai ls LastModified Time None Recorded Concern Status LastModified by Organization Details LastModified Time None Recorded Payers Encounter Date Sequence Insurance Name Policy Number Policy Price Covered Member ID Price Member ID Guarantor Name 06/05/2024 1 [employer] OPEN ACCESS Christina Pinto [id number] OI Christina Pinto OBGyn Episode No OBEpisode recorded.
--- OUTSIDE RECORDS SUMMARY | 2024-08-13 22:22 | XMS_ITS | Encounter Summary ---
Author Organization [facility] Address [address] [place] [address]. [place] [address] [place] [address] Care Team Providers Care Secretary Name Role Phone Riley Cantu MD Unavailable [phone] Lei Garcia MD Primary Care Provider [phone] Encounter Details Date Type Department Care Team (Late st Contact Info) Description 05/05/2023 8:55 AM CDT - 05/05/2023 11:59 PM CDT Hospital Encounter 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 05/23/2021 FEROSUL 325 (65 Fe) MG tablet TAKE 1 TABLET BY MOUTH TWICE DAILY AFTER A MEAL 05/21/2022 multi vitamin/minerals tablet Take 1 tablet by mouth daily. 01/25/2024 nitrofurantoin, macrocrystal-mono hydrate, (MACROBID) 100 MG capsule 05/21/2022 01/25/2024 Phentermine HCl 30 MG Cap 06/18/2022 01/25/2024 documented as of this encounter Plan of Treatment Not on file documented as of this encounter Procedures Procedure Name Priority Date/Time Associated Diagnosis Comments URINALYSIS WI REFLEX TO CULTURE Routine 05/05/2023 9:19 AM CDT Encounter for general adult medical examination without abnormal findings Anemia, unspecified Obesity, unspecified Deficiency of other specified B group vitamins Fatigue VITAMIN B12 / FOLATE Routine 05/05/2023 9:12 AM CDT Encounter for general adult medical examination without abnormal findings Anemia, unspecified Obesity, unspecified Deficiency of other specified B group vitamins Fatigue TSH W/REFLEX Routine 05/05/2023 9:12 AM CDT Encounter for general adult medical examination without abnormal findings Anemia, unspecified Obesity, unspecified Deficiency of other specified B group vitamins Fatigue HEMOGLOBIN, GLYCOSYLATED Routine 05/05/2023 9:12 AM CDT Encounter for general adult medical examination without abnormal findings Anemia, unspecified Obesity, unspecified Deficiency of other specified B group vitamins Fatigue IRON SAT PANEL (IRON,IBC,%SAT) Routine 05/05/2023 9:12 AM CDT Encounter for general adult medical examination without abnormal findings Anemia, unspecified Obesity, unspecified Deficiency of other specified B group vitamins Fatigue COMPREHENSIVE METABOLIC PANEL Routine 05/05/2023 9:12 AM CDT Encounter for general adult medical examination without abnormal findings Anemia, unspecified Obesity, unspecified Deficiency of other specified B group vitamins Fatigue LIPID PANEL Routine 05/05/2023 9:12 AM CDT Encounter for general adult medical examination without abnormal findings Anemia, unspecified Obesity, unspecified Deficiency of other specified B group vitamins Fatigue CBC W/DIFF AUTOMATED Routine 05/05/2023 9:12 AM CDT Encounter for general adult medical examination without abnormal findings Anemia, unspecified Obesity, unspecified Deficiency of other specified B group vitamins Fatigue VITAMIN D, 25 OH Routine 05/05/2023 9:12 AM CDT Encounter for general adult medical examination without abnormal findings Anemia, unspecified Obesity, unspecified Deficiency of other specified B group vitamins Fatigue documented in this encounter Results * (ABNORMAL) URINALYSIS WI REFLEX TO CULTURE (05/05/2023 9:19 AM CDT) COLOR (U) YELLOW 05/05/2023 10:12 AM CDT [facility] TRANSPARENCY CLEAR 05/05/2023 10:12 AM CDT [facility] SPECIFIC GRAVITY (U) 1.010 1.000 - 1.030 05/05/2023 10:12 AM CDT [facility] U PH 7.5 5.0 - 9.0 05/05/2023 10:12 AM T [facility] LEUKOCYTES (U) NEGATIVE NEGATIVE 05/05/2023 10:12 AM CDT [facility] NITRITES NEGATIVE NEGATIVE 05/05/2023 10:12 AM T [facility] PROTEIN RANDOM (U) NEGATIVE NEGATIVE 05/05/2023 10:12 AM T [facility] GLUCOSE (U) NEGATIVE NEGATIVE 05/05/2023 10:12 AM T [facility] KETONES MG/DL (U) NEGATIVE NEGATIVE 05/05/2023 10:12 AM T [facility] BILIRUBIN (U) NEGATIVE NEGATIVE 05/05/2023 10:12 AM T [facility] BLOOD (U) TRACE(A) NEGATIVE 05/05/2023 10:12 AM CDT [facility] WBC/HPF NONE SEEN 0 - 5 /HPF 05/05/2023 10:12 AM CDT [facility] RBC/HPF 0-5 0 - 5 /HPF 05/05/2023 10:12 AM CDT [facility] EPI/HPF FEW /HPF 05/05/2023 10:12 AM CDT [facility] CULTURE & SENSITIVITY INDICATED? CULTURE IS NOT INDICATED 05/05/2023 10:12 AM CDT [facility] URINE SPECIMEN OBTAINED BY CLEAN CATCH PROCEDURE / Unknown 05/05/2023 9:19 AM CDT us Lei Garcia MD URINE ORDERABLES Final Result Performing Organization Address [facility] de Phone Number [facility] [address] [place] [address], * VITAMIN D, 25 OH (05/05/2023 9:12 AM CDT) Pathologist [facility] VITAMIN D 25 HYDROXY S/P/B 30 30 - 100 NG/ML 05/05/2023 10:07 AM CDT [facility] Comment: ? INTERPRETATION ? DEFICIENT ??<20 ? INSUFFICIENT 20-29 ?SUFFICIENT 30-100 05/05/2023 9:12 AM CDT us Lei Garcia MD LABORATORY Final Result Performing Organization Address [facility] de Phone Number [facility] [address] [place] [address], * (ABNORMAL) VITAMIN B12 / FOLATE (05/05/2023 9:12 AM CDT) [facility] VITAMIN B12 S/P/B 242 193 - 986 PG/ML 05/05/2023 10:11 AM CDT [facility] FOLATE 8.0(L) 8.6 - 58.9 NG/ML 05/05/2023 10:11 AM CDT [facility] 05/05/2023 9:12 AM CDT us Lei Garcia MD LABORATORY Final Result Performing Organization Address [facility]/ZIP Co de Phone Number [facility] [address] [place] [address], [place] [phone] * (ABNORMAL) HEMOGLOBIN, GLYCOSYLATED (05/05/2023 9:12 AM CDT) [facility] HGB A1C 5.8(H) <5.7 % 05/05/2023 9:47 AM CDT [facility] Comment: INCREASED RISK OF DIABETES <5.7% ?NON-DIABETES 5.7-6.4% INCREASED RISK FOR FUTURE DIABETES > OR = 6.5 CONSISTENT WITH DIABETES STANDARDS OF MEDICAL CARE IN DIABETES-2010 DIABETES CARE, 33(SUPP 1): S1-S61,2010 ESTIMATED AVG GLUCOSE 120 mg/dL 05/05/2023 9:47 AM CDT [facility] 05/05/2023 9:12 AM CDT us Lei Garcia MD LABORATORY Final Result Performing Organization Address City/[facility]/ZIP Co de Phone Number [facility] [address] [place] [address], [place] [phone] * IRON SAT PANEL (IRON,IBC,%SAT) (05/05/2023 9:12 AM CDT) IRON 66 50 - 170 MCG/DL 05/05/2023 9:45 AM CDT [facility] IRON BINDING CAPACITY 330 250 - 450 MCG/DL 05/05/2023 9:45 AM CDT [facility] IRON SATURATION 20 20 - 55 % 9:45 AM CDT [facility] 05/05/2023 9:12 AM CDT us Lei Garcia MD LABORATORY Final Result [facility] [address] [place] [address], [place] [phone] * TSH W/REFLEX (05/05/2023 9:12 AM CDT) TSH 1.697 0.358 - 3.74 uIU/ML 05/05/2023 9:58 AM CDT [facility] Comment: HIGH DOSES OF BIOTIN MAY INTERFERE WITH THIS TEST RESULT. CORRELATION TO CLINICAL HISTORY AND PRESENTATION RECOMMENDED. FREE T4 NOT INDICATED 05/05/2023 9:12 AM CDT Lei Garcia MD LABORATORY Final Result Performing Organization Address City/[facility]/ZIP Co de Phone Number [facility] [address] [place] [address], [place] [phone] * LIPID PANEL (05/05/2023 9:12 AM CDT) CHOLESTEROL 128 <200.0 MG/DL 05/05/2023 9:58 AM CDT [facility] TRIGLYCERIDES 69 <150 MG/DL 05/05/2023 9:58 AM CDT [facility] HDL 55 >40.0 MG/DL 05/05/2023 9:58 AM [facility] LDL (CALCULATED) 59 <100 MG/DL 05/05/20 9:58 AM [facility] NON HDL CHOLESTEROL 73 <130 MG/DL 05/05 9:58 AM [facility] CHOL/HDL RATIO 2.3 0.0 - 4.5 05/05/2023 9:58 AM [facility] VLDL CALCULATION 14 5 - 55 MG/DL 05/05/2023 9:58 AM [facility] LIPID INTERPRETATION 05/05/2023 9:58 AM [facility] Comment: [facility]ENSUS REPORT RECOMMENDATIONS: ?ADULT ?CHILD ??LOW RISK: [...] us Lei Garcia MD LABORATORY Final Result [facility] [address] [place] [address], * (ABNORMAL) COMPREHENSIVE METABOLIC PANEL (05/05/2023 9:12 AM CDT) GLUCOSE 92 70 - 99 MG/DL 05/05/2023 9:58 AM CDT [facility] BUN 9 7 - 18 MG/DL 05/05/2023 9:58 AM CDT [facility] CREATININE S/P/B 0.76 0.55 - 1.02 MG/DL 05/05/2023 9:58 AM CDT [facility] SODIUM S/P/B 139 136 - 145 MMOL/L 05/05/2023 9:58 AM CDT [facility] POTASSIUM S/P/B 4.1 3.5 - 5.1 MMOL/L 05/05/2023 9:58 AM CDT [facility] CHLORIDE S/P/B 103 100 - 108 MMOL/L 05/05/2023 9:58 AM CDT [facility] CO2 28.6 21 - 32 MMOL/L 05/05/2023 9:58 AM CDT [facility] CALCIUM S/P/B 8.7 8.5 - 10.1 MG/DL 05/05/2023 9:58 AM [facility] BILIRUBIN TOTAL S/P/B 0.5 0.2 - 1.2 MG/DL 05/05/2023 9:58 AM [facility] TOTAL PROTEIN S/P/B 7.3 6.4 - 8.2 G/DL 05/05/2023 9:58 AM [facility] ALBUMIN S/P/B 3.4 3.4 - 5.0 G/DL 05/05/2023 9:58 AM [facility] AST 14(L) 15 - 37 U/L 05/05/2023 9:58 AM [facility] ALT 15 14 - 55 U/L 05/05/2023 9:58 AM [facility] ALKALINE PHOSPHATASE S/P/B 111 50 - 136 U/L 05/05/2023 9:58 AM [facility] ANION GAP 7.4 5 - 15 MMOL/L 05/05/2023 9:58 AM [facility] BUN CREATININE RATIO 11.8 6 - 26 05/05/2023 9:58 AM [facility] A/G RATIO 0.9(L) 1.0 - 2.0 RATIO 05/05/2023 9:58 AM [facility] GFR ESTIMATE >90 >90 ML/MIN/1.7 3 M2 05/05/2023 9:58 AM [facility] Comment: NOTE: eGFR is not calculated for patients <18 years of age. This is an estimated GFR calculation using the new CKD EPI creatinine equation without race and so does not require a correction factor for race. This estimated GFR should not be used for calculating drug doses. 05/05/2023 9:12 AM CDT Lei Garcia MD LABORATORY Final Result [facility] [address] [place] [address], * (ABNORMAL) CBC W/DIFF AUTOMATED (05/05/2023 9:12 AM CDT) WBC 6.17 4.4 - 11.0 x10'3/uL 05/05/2023 9:29 AM CDT [facility] RBC 4.12(L) 4.50 - 5.10 x10'6/uL 05/05/2023 9:29 AM CDT [facility] HGB 11.7(L) 12.3 - 15.3 G/DL 05/05/2023 9:29 AM CDT [facility] HCT 36.1 35.9 - 44.6 % 05/05/2023 9:29 AM CDT [facility] MCV 87.6 80.0 - 96.0 FL 05/05/2023 9:29 AM CDT [facility] MCH 28.4 25.3 - 30.9 PG 05/05/2023 9:29 AM CDT [facility] MCHC 32.4 31.0 - 34.1 G/DL 05/05/2023 9:29 AM CDT [facility] RDW 12.8 12.4 - 15.1 % 05/05/2023 9:29 AM CDT [facility] PLT 253 151 - 353 x10'3/uL 05/05/2023 9:29 AM CDT [facility] MPV 10.8 9.6 - 12.0 FL 05/05/2023 9:29 AM CDT [facility] RBC MORPHOLOGY NORMAL 05/05/2023 9:29 AM CDT [facility] PLT MORPH. NORMAL 05/05/2023 9:29 AM CDT [facility] WBC MORPHOLOGY NORMAL 05/05/2023 9:29 AM CDT [facility] LYMPHOCYTES % 33.1 15.8 - 45.0 % 05/05/2023 9:29 AM CDT [facility] NEUTROPHILS % 56.5 42.1 - 71.9 % 05/05/2023 9:29 AM CDT [facility] MONOCYTES % 7.5 5.7 - 12.5 % 05/05/2023 9:29 AM CDT [facility] EOSINOPHILS 1.8 0.0 - 5.6 % 05/05/2023 9:29 AM CDT [facility] BASOPHILS 0.8 0.0 - 1.3 % 05/05/2023 9:29 AM CDT [facility] ABS. NEUTROPHILS 3.49 1.40 - 6.00 x10'3/uL 05/05/2023 9:29 AM CDT [facility] IMMATURE GRANS % 0.3 0.0 - 0.5 % 05/05/2023 9:29 AM CDT [facility] ABS. LYMPHOCYTES 2.04 0.80 - 4.70 x10'3/uL 05/05/2023 9:29 AM T [facility] 05/05/2023 9:12 AM CDT Lei Garcia MD LABORATORY Final Result [facility] [address] [place] [address], documented in this encounter Visit Diagnoses Diagnosis Encounter for general adult medical examination without abnormal findings Unspecified general medical examination Anemia, unspecified Obesity, unspecified Deficiency of other specified B group vitamins Fatigue Other malaise and fatigue documented in this encounter Care Teams Secretary Relationship Specialty Start Date End Date Lei Garcia MD [address] [facility], [facility] [address] [place] [address] PCP - General HOSPITALIST 05/05/23 Riley Cantu MD [address] [facility], [facility] [address] [place], [place] [address] Physician INTERVENTIONAL CARDIOLOGY 06/12/21 documented as of this encounter
--- OUTSIDE RECORDS SUMMARY | 2024-08-13 22:22 | XMS_ITS | Encounter Summary ---
Author Organization [facility] - [facility] Address [address] [place] [address]. 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 No / Unsure 07/25/2021 10:12 AM FRUIT BUYER documented as of this encounter Plan of Treatment Not on file documented as of this encounter Visit Diagnoses Not on filedocumented in this encounter Care Teams Kinesiologist Relationship Specialty Start Date End Date Sosa Haines MD [address] [place] [address] PCP - General INTERNAL MEDICINE 06/12/21 05/04/23 Riley Cantu MD [address] [facility] [address] [address] Physician INTERVENTIONAL CARDIOLOGY 06/12/21 documented as of this encounter
--- OUTSIDE RECORDS SUMMARY | 2024-08-13 22:22 | XMS_ITS | Encounter Summary ---
Author Organization [facility] Address [address] [place] [address]. 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 Gender Identity Not on file Sexual Orientation Not on file 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 Not on file [...] medical assistance becomes available 1 each 02/03/2024 5 oxyCODONE-acetam inophen (PERCOCET) 5-325 MG tabletIndication s:Acute [...] Name Priority Date/Time Associated Diagnosis Comments XR FOOT STANDING LT 3V Routine 02/17/2024 3:28 PM CDT Displaced fracture of proximal phalanx of lesser toe with routine healing documented in this encounter Results * XR FOOT STANDING LT 3V (02/17/2024 3:28 PM CDT) Anatomical Region Laterality Modality Foot Radiographic Klarissa ging 02/20/2024 11:3 5 AM CDT Impressions 02/20/2024 11:40 AM CDT IMPRESSION: Pinning of the second toe as described. ??No evidence of healing. Note that the pin does not go through the shaft or base of the proximal phalanx. ??The shaft remains medially and dorsally subluxed by 1-2 mm. Developing osteopenia in the distal phalanx from the pin/disuse. Referred By: ?? Interpreted By: Clemente Garcia MD, 02/20/2024 11:35 AM Narrative 02/20/2024 11:40 AM CDT Examination: XR FOOT STANDING LT 3V Exam time: 02/17/2024 3:18 PM Indication: Follow-up on second toe fracture status post pinning Comparison: 01/20/2024 Findings: Standing 3 view left foot. ?? Percutaneous single pin is present within the second toe with the tip of the pin terminating near the base of the proximal phalanx. ??Pin goes through the distal phalanx and middle phalanx and the head/neck of the proximal phalanx. ??It is separate from the shaft and base of the proximal phalanx. ??The proximal phalanx fracture is 1-2 mm laterally and dorsally subluxed. ??Small bone chips from the base fracture remain at the second metatarsophalangeal joint. ??There is no evidence of significant callus formation or bone sclerosis to suggest any interval healing. There appears to be osteopenia developing in the distal phalanx of the second toe. Soft tissue swelling remains at the injury. Procedure Note Clemente Garcia MD - 02/20/2024 Examination: XR FOOT STANDING LT 3V Exam time: 02/17/2024 3:18 PM Indication: Follow-up on second toe fracture status post pinning Comparison: 01/20/2024 Findings: Standing 3 view left foot. Percutaneous single pin is present within the second toe with the tip ofthe pin terminating near the base of the proximal phalanx. Pin goesthrough the distal phalanx and middle phalanx and the head/neck of theproximal phalanx. It is separate from the shaft and base of the proximalphalanx. The proximal phalanx fracture is 1-2 mm laterally and dorsallysubluxed. Small bone chips from the base fracture remain at the secondmetatarsophalangeal joint. There is no evidence of significant callusformation or bone sclerosis to suggest any interval healing. There appears to be osteopenia developing in the distal phalanx of thesecond toe. Soft tissue swelling remains at the injury. IMPRESSION: Pinning of the second toe as described. No evidence of healing. Note that the pin does not go through the shaft or base of the proximalphalanx. The shaft remains medially and dorsally subluxed by 1-2 mm. Developing osteopenia in the distal phalanx from the pin/disuse. Referred By: Interpreted By: Clemente Garcia MD, 02/20/2024 11:35 AM Soniya Thouvenot DPM GENERAL IMAGING Final Result documented in this encounter Visit Diagnoses Diagnosis Displaced fracture of proximal phalanx of lesser toe with routine healing Aftercare for healing traumatic fracture of other bone documented in this encounter Care Teams Rip Tailer Relationship Specialty Start Date End Date Lei Garcia MD [address] , [facility] [address] [address] PCP - General HOSPITALIST 05/05/23 Riley Cantu MD [address], [facility] [address] [address] Physician INTERVENTIONAL CARDIOLOGY 06/12/21 documented as of this encounter
--- OUTSIDE RECORDS SUMMARY | 2024-08-13 22:22 | XMS_ITS | Encounter Summary ---
Author Organization [facility] Address [address] [place] [address]. [place] [address] [place] [address] Care Team Providers Care [facility] Shift Lead Name Role Phone Sosa Haines MD Primary Care Provider [phone] Riley Cantu MD Unavailable [phone] Encounter Details Date Type Department Care Team (Late st Contact Info) Description 06/16/2021 Abstract [facility] [address] [place] [address] Abstract, Doc [facility] Social History Tobacco Use Types Packs/Day Years Used Date Smoking Tobacco: Never Alcohol Use Standard Drinks/Week Comments Not Currently 0 (1 standard drink = 0.6 oz pur e alcohol) Comments Unknown Sex and Gender Information Value Date Recorded Sex Assigned at Not on file 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 Sex 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 Gender Identity Not on file Sexual Orientation Not on file 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
--- OUTSIDE RECORDS SUMMARY | 2024-08-13 22:22 | XMS_ITS | Encounter Summary ---
Author Organization [facility] Address [address] [place] [address]. 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 No / Unsure 10/30/2022 9:42 AM CDT documented as of this encounter Medications at [...] 06/18/2022 01/25/2024 documented as of this encounter Progress Notes * Tosin Martin NP - 10/30/2022 12:47 PM CDT Please let patient know strep culture was negative. Thanks -ED documented in this encounter Plan of Treatment Not on file documented as of this encounter Procedures Procedure Name Priority Date/Time Associated Diagnosis Comments CULTURE STREP A Routine 10/30/2022 10:18 AM CDT Sore throat documented in this encounter Results * CULTURE STREP A (10/30/2022 10:18 AM CDT) SPEC DESCRIPTION THROAT 10/30/2022 12:47 PM CDT [facility] SPECIAL REQUESTS NO SPECIAL REQUEST 10/30/2022 12:47 PM CDT [facility] CULTURE RESULT NO STREPTOCOCCUS PYOGENES (GROUP A) ISOLATED 11/01/2022 8:25 AM CDT [facility] THROAT SWAB / Unknown 10/30/2022 10:18 AM CDT 10/30/2022 1:19 PM CDT us Tosin Martin NP MICROBIOLOGY - GENERAL ORDERAB LES Final Result [facility] [address] [facility] [place] [address], [place] [phone] [facility] [address] [place] [address], [place] [phone] documented in this encounter Visit Diagnoses Diagnosis Sore throat Acute pharyngitis documented in this encounter Care Teams Legend Maker Relationship Specialty Start Date End Date Sosa Haines MD [address] [place] [address] PCP - General INTERNAL MEDICINE 06/12/21 05/04/23 Riley Cantu MD [address] [facility] [address] [address] Physician INTERVENTIONAL CARDIOLOGY 06/12/21 documented as of this encounter
--- OUTSIDE RECORDS SUMMARY | 2024-08-13 22:22 | XMS_ITS | Encounter Summary ---
Author Organization [facility] Address [address] [place] [address]. [place] [address] [place] [address] Care Team Providers Care Stereo Operator Name Role Phone Sosa Haines MD Primary Care Provider [phone] Riley Cantu MD Unavailable [phone] Reason for Visit * Reason Onset Date Comments Reschedule 09/24/2021 Encounter Details Date Type Department Care Team ([facility] st Contact Info) Description 09/24/2021 Telephone [facility] [address] [place] [address] Riley Cantu MD [address] [facility] [address] [place] [address] Reschedule Social History Tobacco Use Types Packs/Day Years Used Date Smoking Tobacco: Never Alcohol Use Standard Drinks/Week Comments Not Currently 0 (1 standard drink = 0.6 oz pur e alcohol) Comments Unknown Sex and Gender Information Value Date Recorded Sex Assigned at Not on file Legal Sex Female 9:24 PM TRAINING AND DEVELOPMENT REP Gender Identity Not on file Sexual Orientation Not on file 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 Appointment rescheduled to 10/06/21 11:15 am. Patient voiced understanding of rescheduled appointment date and time. NING AND DEVELOPMENT REP documented in this encounter Plan of Treatment Not on file documented as of this encounter Visit Diagnoses Not on filedocumented in this encounter Care Teams Stereo Operator Relationship Specialty Start Date End Date Sosa Haines MD [address] [place] [address] PCP - General INTERNAL MEDICINE 06/12/21 05/04/23 Riley Cantu MD [address] [address] Physician INTERVENTIONAL CARDIOLOGY 06/12/21 documented as of this encounter
--- OUTSIDE RECORDS SUMMARY | 2024-08-13 22:22 | XMS_ITS | Encounter Summary ---
Author Organization [facility] Address [address] [place] [address]. [place] [address] [place] [address] Care Team Providers Care Pad Assembler Name Role Phone Sosa Haines MD Primary Care Provider [phone] Riley Cantu MD Unavailable [phone] Encounter Details Date Type Department Care Team (Latest Contact Info) Description 10/30/2022 Travel Social History Tobacco Use Types Packs/Day Years Used Date Smoking Tobacco: Never Alcohol Use Standard Drinks/Week Comments Not Currently 0 (1 standard drink = 0.6 oz pur e alcohol) PHQ-2 Answer Date Recorded Patient Health Questionnaire-2 Score 0 10/30/2022 Comments Unknown Sex and Gender Information Value Date Recorded Sex Assigned at Not on file 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
--- OUTSIDE RECORDS SUMMARY | 2024-08-13 22:22 | XMS_ITS | Encounter Summary ---
Author Organization [facility] - [facility] Address [address] [place] [address]. [place] [address] [place] [address] Care Team Providers Care Hospital Educator Name Role Phone Sosa Haines MD Primary Care Provider [phone]- [phone] Riley Cantu MD Unavailable [phone] Reason for Visit * Reason Comments CT (SCAN) Encounter Details Date Type Department Care Team (Late st Contact Info) Description 06/11/2021 Scan [facility] [address] [place] [address] Scanned, Documents CT (SCAN) Social History Tobacco Use Types Packs/Day Years Used Date Smoking Tobacco: Never Assessed Comments Unknown Sex and Gender Information Value Date Recorded Sex Assigned at Not on file 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 * CT (06/11/2021) Anatomical Region Laterality Modality Other us Documents Scanned SCANNING Final Result * ECG (06/11/2021) us Documents Scanned SCANNING Final Result [facility] documented in this encounter Visit Diagnoses Not on filedocumented in this encounter Care Teams Hospital Educator Relationship Specialty Start Date End Date Sosa Haines MD [address] [place] [address] PCP - General INTERNAL MEDICINE 06/12/21 05/04/23 Riley Cantu MD [address] [facility] [address] [address] Physician INTERVENTIONAL CARDIOLOGY 06/12/21 documented as of this encounter
--- OUTSIDE RECORDS SUMMARY | 2024-08-13 22:22 | XMS_ITS | Encounter Summary ---
Author Organization [facility] - [facility] Address [address] [place] [address]. 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
--- OUTSIDE RECORDS SUMMARY | 2024-08-13 22:22 | XMS_ITS | Encounter Summary ---
Author Organization [facility] - [facility] Address [address] [place] [address]. 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 Unable to assess 06/25/2021 8:21 AM RELISH BLENDER documented as of this encounter Plan of Treatment Not on file documented as of this encounter Visit Diagnoses Not on filedocumented in this encounter Care Teams Field Crop Farm Worker Relationship Specialty Start Date End Date Sosa Haines MD [address] [place] [address] PCP - General INTERNAL MEDICINE 06/12/21 05/04/23 Riley Cantu MD [address] [address] Physician INTERVENTIONAL CARDIOLOGY 06/12/21 documented as of this encounter
--- OUTSIDE RECORDS SUMMARY | 2024-08-13 22:22 | XMS_ITS | Encounter Summary ---
Author Organization [facility] Address [address] [place] [address]. [place] [address] [place] [address] Care Team Providers Care Crm Functional Analyst Name Role Phone Sosa Arreaga MD Primary Care Provider [phone] Riley Cantu MD Unavailable [phone] Reason for Visit * Reason Comments Follow Up Syncope Palpitations Encounter Details Date Type Department Care Team (Latest Contact Info) Description 10/06/2021 11:15 AM OVER THE [employer]ON TARGETING SUPERVISOR Office Visit [facility] [place] [address] Riley Cantu MD [address] [place] [id number] Follow Up; Syncope; Palpitations Social History Tobacco Use Types Packs/Day Years Used Date Smoking Tobacco: Never Alcohol Use Standard Drinks/Week Comments Not Currently 0 (1 standard drink = 0.6 oz pur e alcohol) Comments Unknown Sex and Gender Information Value Date Recorded Sex Assigned at Not on file Legal Sex Female 9:24 PM OVER THE [employer]ING SUPERVISOR Gender Identity Not on file Sexual Orientation Not on file 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 No / Unsure 10/06/2021 11:02 AM OVER THE [employer]ING SUPERVISOR documented as of this encounter Last Filed Vital Signs Vital Sign Reading Time Taken Comments Blood Pressure 132/72 10/06/2021 11:17 AM OVER THE [employer]ING SUPERVISOR Pulse 83 10/06/2021 11:16 AM OVER THE [employer] T[employer]ING SUPERVISOR Temperature - - Respiratory Rate 16 10/06/2021 11:16 AM OVER THE [employer] TARGETING SUPERVISOR Oxygen Saturation 99% 10/06/2021 11:16 AM OVER THE [employer] TARGETING SUPERVISOR Inhaled Oxygen Concentration - - Weight 79.6 kg (175 lb 6.4 oz) 10/06/2021 11:16 AM OVER THE [employer] TARGETING SUPERVISOR Height 162.6 cm (5' 4 ) 10/06/2021 11:16 AM OVER THE [employer] TARGETING SUPERVISOR Body Mass Index 30.11 10/06/2021 11:16 AM OVER THE [employer] TARGETING SUPERVISOR documented in this encounter Patient Instructions * Patient Instructions* Riley Cantu MD - 10/06/2021 11:15 AM OVER THE [employer] TARGETING SUPERVISOR Images from the original note were not included. Patient Education Patient Education Dizziness, Nonvertigo, Discharge Instructions About this topic Dizziness means different things to different people. For example, you may feel light-headed or like you are about to pass out. You may have trouble walking straight and feel like you are about to fall when you are dizzy. Some people feel as though they are spinning or the world around them is spinning. This spinning feeling is known as vertigo. Many things can cause you to feel dizzy. Some are serious things like heart problems or a stroke. Less serious things, like getting up too quickly or not drinking enough fluids, can also cause you tofeel dizzy. Some medicines can also cause you to feel dizzy. You may feel dizzy for a short time and then it may go away. It may also last for a long time and disrupt your daily activities. Treatment for dizziness depends on the cause. What care is needed at home? ?? Ask your doctor what you need to do when you go home. Make sure you ask questions if you do not understand what the doctor says. ?? Avoid changing your position too quickly. Take care when moving from sitting to standing. ?? Sit on the edge of the bed for a few minutes before you stand up. Start to walk slowly after youstand up. ?? Move your legs often if you need to sit or digital marketing apprentice 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 ?? Be sure to drink enough fluids, even if you do not feel thirsty. ?? Sit or lie down right away if you feel faint or dizzy. Take extra care to protect yourself from falls. Avoid driving when dizzy. If you feel dizzy while driving, truss puller helper right away. ?? If you must walk somewhere when you feel dizzy, you may need to use a cane or walker, or have another person help you so you don???t fall. What follow-up care is needed? ?? Your doctor may ask you to make visits to the office to check on your progress. Be sure to keep these visits. ?? Your doctor may send you to a doctor who specializes in the brain, nerves, or heart to figure out the cause of your dizziness. What drugs may be needed? The doctor may order drugs to: ?? Treat the condition that causes dizziness ?? Decrease the feeling of dizziness Will physical activity be limited? ?? Avoid activities that may cause dizzy spells. ?? Do not drive if you are feeling dizzy. ?? Do not use running machines if you are feeling dizzy. What problems could happen? ?? Fall and hurt yourself ?? Get in a car accident What can be done to prevent this health problem? ?? Drink lots of fluids each day. ?? Have your doctor review your drugs and try to decrease drugs that cause dizziness. ?? Use a blood pressure monitor. ?? Avoid drinking alcohol or using other drugs When do I need to call the doctor? ?? You have new weakness in your arms or legs. ?? You develop new trouble speaking, swallowing, seeing, or hearing. ?? You have chest pain, an irregular heartbeat, or trouble breathing. ?? You have a seizure. ?? You become unable to walk or stand because of your dizziness. ?? Your dizziness continues for a long time or gets worse. Helpful tips If you are having dizzy spells: ?? Sit down in a chair and put your head between your knees. ?? Breathe deeply and slowly. ?? Stand up slowly. ?? Get some fresh air. Teach Back: Helping You Understand The Teach Back Method helps you understand the information we are giving you. After you talk with the staff, tell them in your own words what you learned. This helps to make sure the staff has described each thing clearly. It also helps to explain things that may have been confusing. Before going home, make sure you can do these: ?? I can tell you about my condition. ?? I can tell you what I will do to help me stay safe when moving about. ?? I can tell you what I will do if I have problems talking or moving. Where can I learn more? [employer] http://www.health.govt.nz/your-health/lgqptimoyd-mdx-rhzbbqitgl/wkvcewgp-qdp-kae nesses/dizziness NHS Choices http://www.nhs.uk/conditions/dizziness/pages/introduction.aspx Last Reviewed Date 2021-01-16 Consumer Information Use and Disclaimer This generalized information is a limited summary of diagnosis, treatment, and/or medication information. It is not meant to be comprehensive and should be used as a tool to help the user understand and/or assess potential diagnostic and treatment options. It does NOT include all information about conditions, treatments, medications, side effects, or risks that may apply to a specific patient. Itis not intended to be medical advice or a substitute for the medical advice, diagnosis, or treatment of a health care provider based on the health care provider's examination and assessment of a patient???s specific and unique circumstances. Patients must speak with a health care provider for complete information about their health, medical questions, and treatment options, including any risks orbenefits regarding use of medications. This information does not endorse any treatments or medications as safe, effective, or approved for treating a specific patient. [employer] and its affiliates disclaim any warranty or liability relating to this information or the use thereof. The use of this information is governed by the Terms of Use, available at https://www.[employer].Cennox/en/solutions/lexicomp/about/alondra Copyright Copyright ?? 2020 [employer] and its affiliates and/or licensors. All rights reserved. THE H[employer] TARGETING SUPERVISOR documented in this encounter Progress Notes * Riley Cantu MD - 10/06/2021 11:15 AM CST Addendum-reviewed Holter monitoring report done at [facility], February 2020. Patient was monitored for 48 hours, remained in sinus rhythm, minimum heart rate 52 bpm, maximum heart rate around 143 beats per night, average heart rate 70 beats minute. Total of 20 PVCs with 2 morphologies and a total of 27 PSVT's. Cardiology Clinic Note PATIENT NAME: Christina Pinto : 1980 Primary Care Physician: LINDSEY ARREAGA MD No ref. provider found REASON FOR VISIT Chief Complaint Patient presents with ??? Follow Up ??? Syncope ??? Palpitations Syncope HISTORY OF PRESENT ILLNESS Christina Curiel is a pleasant 41-year-old yr old patient of Dr.PAVI WHITLEY MD here for follow-up of syncope. Doing well since last visit on 06/25/21. As you know, she had fainted in march 2021 (had fever, due to strep throat, collapsed in the shower), recovered well. 2 weeks ago, she got up from being asleep, passed out, 30-45seconds, came aroundwell, no chest pain, no incontinence, (felt her vision coning in, felt funny in the arms, and passed out) recovered well without any chest pain or seizure-like activity. In March 2020 she had COVID illness treated at home, her son-13yrs old, was diagnosed with Covid in May 2021. We had obtained a stress echocardiogram which did not show any significant ischemia by echocardiographic criteria, she had mildly abnormal response to EKGs with worsening of her baseline ST depressions, her event monitor from Dr. Arreaga's office Revealed sinus rhythm between heart rates of 80-1 20. ?? She still notes that off late-'feels fluttery' in the chest, when I am stressed out, ' dragging thefood cart' brief, resolved on its own, didn't get worse since June. Denies any typical cardiac type chest pain, no shortness of breath, no PND, orthopnea, swelling in the legs, or sudden weight gain. Medication compliance and tolerance are good. No constructed exercise regimen, exercise capacity estimated greater than 4 leg equivalents. No typical claudication-like pain, no symptoms suggestive of venous insufficiency, no ulcers. No history of MA/PCI/CVA/CAD/renal failure had a healthy childhood except emergent appendectomy, did not have syncope at that time. Paternal grandmother had a fatal MA in 42. No family history of sudden . ?? 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 Covid vaccinated PROBLEM LIST Abnormal ekg (primary encounter diagnosis) Vasovagal syncope ASSESSMENT AND PLAN Syncope-likely vasovagal. No recurrence. Continue compression stocking. Exercises were demonstrated. Abnormal EKG during stress echocardiogram no ischemia by imaging. We discussed this likely this is due to worsening baseline ST-T changes rather than true ischemia/microvascular disease. We discussedfurther management options including obtaining coronary artery evaluation with cardiac CTA. After discussions we decided to proceed with expectant management. Palpitations-no significant arrhythmia. Stable. We discussed all this, continue current management. History of gastric bypass-continue management per primary medical team. RECOMMENDATIONS Orders Placed This Encounter ??? LIPID PANEL ??? TSH Patient instructions: Orthostasis Return in about 18 months (around 04/05/2023). Dear Dr. rAreaga, I saw Christina in the clinic today for follow-up of her syncope. She has done well since her last visit and has had no recurrence. We obtained a stress echo which showed some abnormal EKG response without any significant ischemia by imaging. At this time we will continue medical management. I haveordered a lipid panel and a TSH, and will get back to you with the results. Event monitor obtained at your office has not shown any significant arrhythmia by report. We will see her back in a couple of years. she is encouraged to continue follow-up with you as scheduled for continued care .Please do not hesitate to contact me if you have any questions. Thank you for giving me a chance to participate in her care. PAST HISTORY Past Medical History: Diagnosis Date ??? Anemia ??? Anxiety ??? Benign paroxysmal positional vertigo ??? Sleep apnea ??? Syncope ??? TMJ dysfunction ??? Vitamin B12 deficiency Past Surgical History: Procedure Laterality Date ??? APPENDECTOMY ??? GALLBLADDER SURGERY ??? GASTRIC BYPASS Social History Tobacco Use ??? Smoking status: Never Smoker Substance Use Topics ??? Alcohol use: Not Currently Family History Problem Relation Name Age of [...] fm hx ??? Heart Attack Maternal Grandmother MEDICATIONS Current Outpatient Medications: ??? cyanocobalamin 1000 MCG/ML injection, Inject into the muscle monthly., Disp: , Rfl: ??? multi vitamin/minerals tablet, Take 1 tablet by mouth daily., Disp: , Rfl: ALLERGIS Allergies Allergen Reactions ??? Amoxil [Amoxicillin] Hives ??? Penicillins Hives ??? Wellbutrin [Bupropion] Hives REVIEW OF SYSTEMS Review of Systems Constitutional: Negative for recent unintentional weight gain, recent unintentional weight loss andnew or significant fatigue. HENT: Negative for new or significant hearing loss. Eyes: Negative for blurred vision and double vision. Respiratory: Negative for cough, new or significant shortness of breath and snoring. Cardiovascular: See HPI. Gastrointestinal: Negative for blood in stool and melena. Genitourinary: Negative for dysuria. Musculoskeletal: Negative for myalgias and new or worsening joint stiffness/pain. Skin: Negative for rash. Neurological: Negative for tingling/numbness and focal weakness. Endo/Heme/Allergies: Negative for new or significant bruising/bleeding and polydipsia. Psychiatric/Behavioral: Negative for depression and new or significant memory loss. PHYSICAL EXAMINATION Wt Readings from Last 3 Encounters: 10/06/21 79.6 kg (175 lb 6.4 oz) 07/25/21 77.6 kg (171 lb) 06/25/21 77.7 kg (171 lb 6.4 oz) Body mass index is 30.11 kg/m??. Filed Vitals: 10/06/21 1116 10/06/21 1117 BP: 128/70 132/72 Pulse: 83 Resp: 16 SpO2: 99% Weight: 79.6 kg (175 lb 6.4 oz) Height: 5' 4 (1.626 m) Physical Exam Exam conducted with a skiver counter present. Constitutional: Appearance: Normal appearance. HENT: Head: Normocephalic and atraumatic. Eyes: Extraocular Movements: Extraocular movements intact. Pupils: Pupils are equal, round, and reactive to light. Neck: Vascular: No carotid bruit. Cardiovascular: Rate and Rhythm: Normal rate and regular rhythm. Pulses: Normal pulses. Heart sounds: Normal heart sounds. Pulmonary: Effort: Pulmonary effort is normal. Breath sounds: Normal breath sounds. Abdominal: General: There is no distension. Palpations: Abdomen is soft. Musculoskeletal: General: No swelling. Skin: General: Skin is warm and dry. Neurological: General: No focal deficit present. Mental Status: She is alert. Psychiatric: Mood and Affect: Mood normal. Behavior: Behavior normal. ?? BP/pulse at work wnl LABORATORY RESULTS ECG/TELEMETRY osh- sr/qtc wnl IMAGING Stress Echo-07/25/21 1. Patient performed Camron protocol for 7 minutes, achieving 8.3 METs, and 94% of maximum predicted heart rate for age. No angina or arrhythmias. ST segment depressions consistent with ischemia was noted. Baseline EKG chnages got worse with exercise. Adequate BP response to exercise. Fair exercise capacity. 2. Resting echo: LV size, wall thickness and global systolic function are normal. LVEF 60-65%. Normal segmental wall motion. 3. Stress echo: LV size decreased, systolic function increased, and all segments augmented normally. 4. Negative for ischemia by imagining criteria. ?? abnormal exercise induced EKG response, no ischemia by imaging criteria. ?? Signed RILEY CANTU MD 10/06/2021 CC: No ref. provider found LINDSEY ARREAGA MD THE [employer] TARGETING SUPERVISOR documented in this encounter Plan of Treatment Not on file documented as of this encounter Results * TSH (11/06/2021 9:07 AM CDT) TSH 3.124 0.358 - 3.74 uIU/ML 11/06/2021 10:06 AM CDT [facility] Comment: HIGH DOSES OF BIOTIN MAY INTERFERE WITH THIS TEST RESULT. CORRELATION TO CLINICAL HISTORY AND PRESENTATION RECOMMENDED. 11/06/2021 9:07 AM CDT Riley Cantu MD LABORATORY Final Result [facility] [address] [place] [address], * LIPID PANEL (11/06/2021 9:07 AM CDT) [facility] Signature CHOLESTEROL 120 <200.0 MG/DL 11/06/2021 10:06 AM CDT [facility] TRIGLYCERIDES 84 <150 MG/DL 11/06/2021 10:06 AM T [facility] HDL 60 >40.0 MG/DL 11/06/2021 10:06 AM T [facility] LDL (CALCULATED) 43 <100 MG/DL 11/07/19 10:06 AM T [facility] NON HDL CHOLESTEROL 60 <130 MG/DL 11/06 10:06 AM [facility] CHOL/HDL RATIO 2.0 0.0 - 4.5 11/06/2021 10:06 AM T [facility] VLDL CALCULATION 17 5 - 55 MG/DL 11/06/2021 10:06 AM [facility] LIPID INTERPRETATION 11/06/2021 10:06 AM T [facility] Comment: NIH CONCENSUS REPORT [...] ?HDL ?<40 ?--- ?LDL ? >=160 ?>=130 11/06/2021 9:07 AM CDT us Riley Cantu MD LABORATORY Final Result Performing Organization Address [facility] Co de Phone Number [facility] [address] [place] [address], documented in this encounter Visit Diagnoses Diagnosis Abnormal EKG- Primary Nonspecific abnormal electrocardiogram (ECG) (EKG) Vasovagal syncope Syncope and collapse documented in this encounter Care Teams Crm Functional Analyst Relationship Specialty Start Date End Date Sosa Arreaga MD [address] [place] [address] PCP - General INTERNAL MEDICINE 06/12/21 05/04/23 Riley Cantu MD [address] [facility] [address] [place] [address] Physician INTERVENTIONAL CARDIOLOGY 06/12/21 documented as of this encounter
--- OUTSIDE RECORDS SUMMARY | 2024-08-13 22:22 | XMS_ITS | Encounter Summary ---
Author Organization [facility] Address [address] [place] [address]. [place] [address] [place] [address] Care Team Providers Care Personal Computer Specialist Name Role Phone Sosa Haines MD Primary Care Provider [phone] Riley Cantu MD Unavailable [phone] Reason for Visit * Reason Comments Sore Throat Body aches, ear pain , fever, sore throat, chest congestion. Day 6 Encounter Details Date Type Department Care Team (Late st Contact Info) Description 09/23/2022 8:40 AM INVESTMENT BANKER Office Visit [facility] Family & Internal Medicine [address] [address] Miroslava Bush, CRISTOPHER Sore Throat (Body aches, ear pain, fever, sore throat, chest congestion. 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 No / Unsure 09/23/2022 8:22 AM INVESTMENT BANKER documented as of this encounter Last Filed Vital Signs Vital Sign Reading Time Taken Comments Blood Pressure 128/82 09/23/2022 8:45 AM INVESTMENT BANKER Pulse 87 09/23/2022 8:45 AM INVESTMENT BANKER Temperature 37.1 ??C (98.8 ??F) 09/23/2022 8:45 AM CS T Respiratory Rate 20 09/23/2022 8:45 AM INVESTMENT BANKER Oxygen Saturation 99% 09/23/2022 8:45 AM INVESTMENT BANKER Inhaled Oxygen Concentration - - Weight 82.6 kg (182 lb) 09/23/2022 8:45 AM INVESTMENT BANKER Height 162.6 cm (5' 4 ) 09/23/2022 8:45 AM INVESTMENT BANKER Body Mass Index 31.24 09/23/2022 8:45 AM INVESTMENT BANKER documented in this encounter Patient Instructions * Patient Instructions* Miroslava Bush NP - 09/23/2022 8:40 AM INVESTMENT BANKER Strep Pharyngitis- Rapid STREP POSITIVE Provided antibiotic course and encouraged pt to take course as directed. Warm salt water gargles as tolerated Ibuprofen or Tylenol per age/weight dose by box for discomfort. Change toothbrush in 2-3 days. Return to office if symptoms persists or worsens. STMENT BANKER * Attachments The following attachments cannot be sent through Care Everywhere. * Strep Throat Discharge Instructions (Cambodian) documented in this encounter Progress Notes * Miroslava Bush NP - 09/23/2022 8:40 AM CST OFFICE ACUTE VISIT Encounter Date: 09/23/2022 Chief Complaint: 42-year-old female presents for Sore Throat (Body aches, ear pain, fever, sore throat, chest congestion. Day 6) . HPI: Patient presents today for sore throat and fever. Symptoms started about 5 days ago. Patient describes symptoms as not improving. Patient has since used mucinex night shit with no improvement in symptoms. Noted underlying history of SOB since COVID vaccine Review of Systems Constitutional: Positive for chills, fever and malaise/fatigue. HENT: Positive for congestion, ear pain and sore throat. Respiratory: Positive for cough and shortness of breath. Negative for sputum production. Wheezing: mild. Gastrointestinal: Positive for nausea and vomiting. Musculoskeletal: Positive for myalgias. Neurological: Positive for dizziness and headaches. All other systems reviewed and are negative. Past Medical History: Diagnosis Date ??? Anemia ??? Anxiety ??? Benign paroxysmal positional vertigo ??? Sleep apnea ??? Syncope ??? TMJ dysfunction ??? Vitamin B12 deficiency Current Outpatient Medications Medication Sig Dispense Refill ??? cephALEXin (KEFLEX) 500 MG capsule Take 1 capsule (500 mg total) by mouth 2 (two) times daily for 10 days. 20 capsule 0 ??? cyanocobalamin 1000 MCG/ML injection Inject into the muscle monthly. ??? FEROSUL 325 (65 Fe) MG tablet TAKE 1 TABLET BY MOUTH TWICE DAILY AFTER A MEAL ??? multi vitamin/minerals tablet Take 1 tablet by mouth daily. ??? Phentermine HCl 30 MG Cap ??? nitrofurantoin, macrocrystal-monohydrate, (MACROBID) 100 MG capsule (Patient not taking: Reported on 09/23/2022) No current facility-administered medications for this visit. Allergies Allergen Reactions ??? Amoxil [Amoxicillin] Hives ??? Penicillins Hives ??? Wellbutrin [Bupropion] Hives Objective: Vitals: 09/23/22 0845 BP: 128/82 Pulse: 87 Resp: 20 Temp: 98.8 ??F (37.1 ??C) SpO2: 99% Physical Exam Vitals and nursing note reviewed. Constitutional: Appearance: Normal appearance. HENT: Head: Normocephalic and atraumatic. Right Ear: A middle ear effusion is present. Left Ear: A middle ear effusion is present. Nose: Mucosal edema and congestion present. Right Sinus: Maxillary sinus tenderness present. Left Sinus: Maxillary sinus tenderness present. Mouth/Throat: Lips: Myton. Mouth: Mucous membranes are moist. Pharynx: Posterior oropharyngeal erythema present. Comments: Tonsils surgically absent Cardiovascular: Rate and Rhythm: Normal rate and regular rhythm. Pulmonary: Effort: Pulmonary effort is normal. Breath sounds: Normal breath sounds. Musculoskeletal: General: Normal range of motion. Cervical back: Normal range of motion. Lymphadenopathy: Cervical: Cervical adenopathy (mild anterior) present. Skin: General: Skin is warm and dry. Neurological: Mental Status: She is alert and oriented to person, place, and time. Psychiatric: Mood and Affect: Mood normal. Behavior: Behavior normal. Thought Content: Thought content normal. Judgment: Judgment normal. Assessment/Plan 1. Sore throat Rapid strep positive See plan below - RAPID STREP A 2. Suspected COVID-19 virus infection/4. Acute Cough Rapid COVID and flu negative. Declines COVID PCR Patient to follow-up PCP if symptoms persist or worsen. OTC medications as needed for cough and congestion. See AVS. - CORONAVIRUS (COVID-19) INFLUENZA A & B ANTIGEN IA PANEL 3. Strep pharyngitis Strep Pharyngitis- Rapid STREP POSITIVE Provided antibiotic course and encouraged pt to take course as directed. Warm salt water gargles as tolerated Ibuprofen or Tylenol per age/weight dose by box for discomfort. Change toothbrush in 2-3 days. Return to office if symptoms persists or worsens. - cephALEXin (KEFLEX) 500 MG capsule; Take 1 capsule (500 mg total) by mouth 2 (two) times daily for 10 days. Dispense: 20 capsule; Refill: 0 Miroslava Bush, MEDICAL MANAGER, RISK MANAGEMENT PROFESSIONAL, CLOTH STOCK SORTER Cosigned by Boaz Ames MD at 09/23/2022 10:52 AM INVESTMENT BANKER STMENT BANKER STMENT BANKER documented in this encounter Plan of Treatment Not on file documented as of this encounter Procedures Procedure Name Priority Date/Time Associated Diagnosis Comments CORONAVIRUS (COVID-19) INFLUENZA A & B ANTIGEN IA PANEL Routine 09/23/2022 Suspected COVID-19 virus infection RAPID STREP A Routine 09/23/2022 Sore throat documented in this encounter Results * CORONAVIRUS (COVID-19) INFLUENZA A & B ANTIGEN IA PANEL (09/23/2022) CORONAVIRUS ANTIGEN IA NEGATIVE NEGATIVE [id number] [facility] Comment:pt declines pcr INFLUENZA A NEGATIVE NEGATIVE [id number], [place] INFLUENZA B NEGATIVE NEGATIVE [id number] [place], [place] Internal Control: VALID VALID -[id number] [place] NASAL STRUCTURE / Unknown 09/23/2022 Miroslava Verma CLOTH STOCK SORTER MICROBIOLOGY - GENERAL O RDERABLES Final Result Performing Organization Address City/[facility]/ZIP Co de Phone Number -[phone] [place], [place] [address] [place] [address], [place] [phone] * (ABNORMAL) RAPID STREP A (09/23/2022) RAPID STREP TEST POSITIVE(P ositive) NEGATIVE -[id number] BRAG[place] Internal Control: VALID VALID -[id number] [facility] STRUCTURE OF ANTERIOR PORTION OF NECK / Unknown 09/23/2022 Miroslava Verma CLOTH STOCK SORTER MICROBIOLOGY - GENERAL O RDERABLES Final Result Performing Organization Address City/[facility]/ZIP Co de Phone Number [id number] [address] [address] [place] [address], [place] [phone] documented in this encounter Visit Diagnoses Diagnosis Strep pharyngitis- Primary Streptococcal sore throat Sore throat Acute pharyngitis Suspected COVID-19 virus infection Acute cough documented in this encounter Additional Health Concerns Infection Onset Date Last Indicated Resolved Time COVID-19 Rule Out 09/23/2022 09/23/2022 09/23/2022 10:13 AM INVESTMENT BANKER documented as of this encounter Care Teams Personal Computer Specialist Relationship Specialty Start Date End Date Sosa Haines MD [address] [place] [address] PCP - General INTERNAL MEDICINE 06/12/21 05/04/23 Riley Cantu MD [address] [address] Physician INTERVENTIONAL CARDIOLOGY 06/12/21 documented as of this encounter
--- OUTSIDE RECORDS SUMMARY | 2024-08-13 22:22 | XMS_ITS | Encounter Summary ---
Author Organization [facility] Address [address] [place] [address]. [place] [address] [place] [address] Care Team Providers Care Fraternity Adviser Name Role Phone Riley Cantu MD Unavailable [phone] Lei Garcia MD Primary Care Provider [phone] Reason for Visit * Auth/Cert Specialty Diagnoses / Procedures Referred By Mirella lua Referred To Contact Diagnoses proximal phalanx fractur Procedures PERCUT BIG TOE FX CLOSED REDUCTION OF PROXIMAL PHALANX FRACTURE SECOND TOE POSSIBLE OPEN REDUCTION INTERNAL FIXATION OF PROXIMAL PHALANX FRACTURE Zac Lopez DPM [address] [place] [address] Phone: tel: fax: Referral ID Status Reason Start Date Expiration Date Visits Re quested Visits Authorized [id number] 1 1 Encounter Details Date Type Department Care Team (Late st Contact Info) Description 02/03/2024 7:30 AM CDT - 02/03/2024 9:36 AM CDT Surgery [facility] [address] [place] [address] Zac Lopez DPM [address] [place] [address] CLOSED REDUCTION OF PROXIMAL PHALANX FRACTURE SECOND TOE Surgery Details Date/Time Status Location OR Service Patient Class Case Class Case Type Trauma Case? 02/03/2024 7:30 AM Posted [facility] OR OR 2 Podiatry Short Stay/Outpati ent Surgery No Panel 1 Procedure LRB Anes Op Region Wound Class Comments CLOSED REDUCTION OF PROXIMAL PHALANX FRACTURE SECOND TOE Left Monitor Anesthesia Care Toe Clean percutaneous pinning Surgeon Surgeon Role Service Panel Zac Lopez DPSid Primary Podiatry 1 Special Needs Pt moved from 01/26 to 02/02 r/t insurance. Pt is aware of 0630 arrival time and to hold Wegovy until after her surgery. 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 Not on file Not on file documented as of this encounter Last Filed Vital Signs Vital Sign Reading Time Taken Comments Blood Pressure 90/58 02/03/2024 8:18 AM CDT Pulse 80 02/03/2024 8:18 AM CDT Temperature 36.4 ??C (97.6 ??F) 02/03/2024 7:06 AM CD T Respiratory Rate 16 02/03/2024 8:18 AM CDT Oxygen Saturation 100% 02/03/2024 8:18 AM CDT Inhaled Oxygen Concentration - - Weight 71.2 kg (157 lb) 02/03/2024 7:06 AM CDT Height 160 cm (5' 2.99 ) 02/03/2024 7:06 AM CDT Body Mass Index 27.82 02/03/2024 7:06 AM CDT documented in this encounter Discharge Instructions * Attachments The following attachments cannot be sent through Care Everywhere. * Closed Fracture Reduction Discharge Instructions (Uzbek) * Surgical Wound Discharge Instructions (Uzbek) * Oxycodone and Acetaminophen, ADULT (Uzbek) documented in this encounter Medications at Time [...] as of this encounter Progress Notes * Zac Lopez DPM - 02/03/2024 7:11 AM CDT [...] wishes to continue with surgical treatment today. ZAC LOPEZ DPM documented in this encounter H&P Notes * Zac Lopez DPM - 02/03/2024 7:22 AM CDT [...] during recuperation were discussed with the patient/family/personal business development representative. Reasonable alternatives to the patient's proposed procedure/surgery including benefits, risks, and side effects related to the alternatives and the risks related to not receiving the proposed care were also discussed with the patient/family/personal business development representative. Questions were answered and the patient /family/personal business development representative verbalized understanding and desires to proceed. documented in this encounter OR Notes * Op Note - Zac Lopez DPM - 02/03/2024 8:42 AM CDT DATE: 02/03/24 /SURGEON: Dr. Zac Lopez /ASSISTANTS: none PRE- OP DIAGNOSIS: Fracture [...] Patient was given prescriptions for pain management. Almira 5/325 30 tabs to be taken PO [...] TEST NEGATIVE NEGATIVE 02/03/2024 7:08 AM CDT [facility] Comment: VERY DILUTE URINE SPECIMENS MAY NOT CONTAIN DOOR TECHNICIAN LEVELS OF HCG. IF IS STILL SUSPECTED, A SERUM HCG TEST IS RECOMMENDED. URINE SPECIMEN FROM [facility]RE[facility]RA / Unknown 02/03/2024 6:53 AM CDT us Karly A Steve MULE DRIVER URINE ORDERABLES Final Result [facility] [address] [place] [address], [place] [phone] * MRSA SCREENING (01/25/2024 4:25 PM CDT) SPEC DESCRIPTION NASAL 01/25/2024 4:17 PM CDT [facility] SPECIAL REQUESTS NO SPECIAL REQUEST 01/25/2024 4:17 PM CDT [facility] CULTURE RESULT NO MRSA ISOLATED 01/26/2024 8:42 PM CDT [facility] SPECIMEN FROM INTERNAL NOSE / Unknown 01/25/2024 4:25 PM CDT 01/25/2024 4:26 PM CDT [facility] Molly DPM MICROBIOLOGY - GENERAL ORDERAB LES Final Result [facility] [address] [place] [address], [place] [phone] documented in this encounter Visit Diagnoses Not on filedocumented in this encounter Administered Medications Inactive Administered Medications - up to 3 most recent administrations Medication Order MAR Action Action Date Dose Rate Site BUpivacaine (PF) (MARCAINE) 10 mL, lidocaine (XYLOCAINE) 2 % 10 mL solution As needed, Starting on Janay 02/03/24 at 0750, Until Janay 02/03/24 at 0818, Intra-Op Given 02/03/2024 7:50 AM CDT Operative Site clindamycin (CLEOCIN) 600 mg in D5W [...] 0818, Intra-Op 0750 (Given - Provid er: Zac Lopez DPM) documented in this encounter Care Teams Fraternity Adviser Relationship Specialty Start Date End Date Lei Garcia MD [address] [place] [id number] PCP - General HOSPITALIST 05/05/23 Riley Cantu MD [address], [address] [id number] Physician INTERVENTIONAL CARDIOLOGY 06/12/21 documented as of this encounter
--- OUTSIDE RECORDS SUMMARY | 2024-08-13 22:22 | XMS_ITS | Encounter Summary ---
Author Organization [facility] Address [address] [place] [address]. [place] [address] [place] [address] Care Team Providers Care Wound Care Technician Name Role Phone Sosa Haines MD Primary Care Provider [phone]- [phone] Riley Cantu MD Unavailable [phone] Reason for Visit * Imaging (Routine) - Closed Specialty Diagnoses / Procedures Referred By Mirella lua Referred To Contact RADIOLOGY Diagnoses Vasovagal syncope Procedures USE STRESS ECHO W CON USE STRESS ECHO Riley Cantu MD [address] [place] [address] Phone: tel: fax: Referral ID Status Reason Start Date Expiration Date Visits Re quested Visits Authorized [id number] Closed 07/25/2021 01/21/2022 2 2 Encounter Details Date Type Department Care Team (Latest Contact Info) Description 07/25/2021 10:12 AM [facility] Hospital Encounter [facility] Non Invasive Cardiology - [place] [address] [place], [place] [address] Riley Cantu MD [address] [facility] [address] [place], [place] [address] Discharge Disposition: Home or Self Care (Routine Discharge) Social History Tobacco Use Types Packs/Day Years Used Date Smoking Tobacco: Never Alcohol Use Standard Drinks/Week Comments Not Currently 0 (1 standard drink = 0.6 oz pur e alcohol) Comments Unknown Sex and Gender Information Value Date Recorded Sex Assigned at Not on file Legal Sex Female 9:24 PM RESUME SPECIALIST Gender Identity Not on file Sexual Orientation Not on file 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 No / Unsure 07/25/2021 10:12 AM RESUME SPECIALIST documented as of this encounter Medications at Time of Discharge cyanocobalamin 1000 MCG/ML injection Inject into the muscle monthly. 05/23/2021 multi vitamin/minerals tablet Take 1 tablet by mouth daily. 01/25/2024 documented as of this encounter Plan of Treatment Not on file documented as of this encounter Procedures Procedure Name Priority Date/Time Associated Diagnosis Comments USE STRESS ECHO W CON Routine 07/25/2021 11:20 AM RESUME SPECIALIST Vasovagal syncope documented in this encounter Results * USE STRESS ECHO W CON (07/25/2021 11:20 AM RESUME SPECIALIST) Anatomical Region Laterality Modality NA Cardiac Electrop hysiology 07/25/2021 10:4 5 AM RESUME SPECIALIST Narrative 07/26/2021 9:26 PM RESUME SPECIALIST ?Stress Echocardiography Report Pat.Name: ??CHRISTINA PINTO ??Pat.ID: ?[id number] ? St.Date: ?? 07/25/2021 ? Refer.MD: ??[id number], RILEY CANTU Exam Time: 10:45:00 AM ? Study Type:STRESS ECHO CONT DOP COLOR Height: ?64in ?Weight: ?170.64lb ? BSA: ? 1.83 m2 ?Age: ??1980,41Y ? Sex: ? FEMALE ?BP: ?139/88 ? HR: ?77 bpm ?Sonogrphr: Box, Auna RDCS ? Pat. Stat.:Outpatient ?CPT - 4: ?[id number] ? Reason for Study:Syncope/pre-syncope History / Clinical:Syncope ? Procedures: 2D, Doppler, Color Flow, Exercise Stress Echo, Definity was used to enhance endocardial definition. ++++++++++++++++++++++++++++++++++++ SUMMARY: ++++++++++++++++++++++++++++++++++++ 1. Patient performed Camron protocol for 7 minutes, achieving 8.3 METs, and 94% of maximum predicted heart rate for age. ??No angina or arrhythmias. ST segment depressions consistent [...] 4. Negative for ischemia by imagining criteria. abnormal exercise induced EKG response, no ischemia by imaging criteria. ++++++++++++++++++++++++++++++++++++ FINDINGS: ++++++++++++++++++++++++++++++++++++ LV: ? The left ventricular size is normal. The left ventricular ?systolic function is normal. Estimated left ventricular ?ejection fraction is 60-65%. No concentric left ventricular ?hypertrophy. The average E/e' is normal at <8. WM: ? Wall motion appears normal in all segments. RV: ? The right ventricular size is normal. Right ventricular ?systolic function is normal. HERIBERTO: ? No evidence of pericardial effusion. PA: ? The peak pulmonary artery systolic pressure is estimated to ?be approximately 28 + RAP mmHg. AV: ? The aortic valve is trileaflet. No evidence of aortic valve ?stenosis. No evidence of aortic valve regurgitation. MV: ? Structurally normal mitral valve. Trace mitral ?regurgitation. No evidence of mitral stenosis. PV: ? The pulmonic valve is normal There is trace pulmonic ?regurgitation TV: ? The tricuspid valve appears structurally normal. There is ?trace tricuspid regurgitation. ++++++++++++++++++++++++++++++++++++ STRESS: ++++++++++++++++++++++++++++++++++++ Baseline Vital Signs: ?Test ? Exercise Stress Echo ? Protocol ?? Camron Rest HR ?89 ?Duration ?? 07:00Atropine Administered: 0 Rest BP ?104/62 ?Max. Workload (METS) 8.3 ? Lake Score 2 ? Lake Score Group moderate risk Baseline Rhythm Sinus Rhythm, ST deviation and Moderate T-wave abnormality, T waves flipped upon standing pre stess Stress Test Results: HR achieved 169 ?Contrast ?? Definity 1 ml Pred. Max. Heart Rate (100%) 178 ?? Max ST: ?-1 mm @ 7 min @ HR 169 bpm % Target: ??95 % ?Resolved ?? 2 min into Recovery Phase Max BP ? 160/84 ? Max RPP ?95996 ? Symptoms and Complications: Arrhythmias None Reason for Stopping Test: Fatigue, Patient request Stress Induced Symptoms: Generalyzed weakness, mostly lower extremeties Leads ?II, III, AVF, V4, V5, V6 ECG Findings: ??Ischemic S-T changes (>=1 mm) occurred with stress ++++++++++++++++++++++++++++++++++++ MEASUREMENTS: ++++++++++++++++++++++++++++++++++++ ?DOPPLER MV Forward Flow MV DeTm ?158 ms ?MV pkE ?85.7 cm/s (60-130) MV E/A ? 1.8 ? MV pkA ?47.6 cm/s TV Regurg Flow TV pkPG ? 26 mmHg ? TV pkVel ? 257 cm/s (30-70)+* Lat E' ?? Lat e ? 15.6 cm/s ? Lat E/E' ?? Lat E/e ?5.5 ? Med E' ?? Med e ? 11.3 cm/s ? Med E/E' ?? Med E/e ?7.6 ? LV Mass 2D ?? Value ?112 g ? LV Mass Index 2D ?? Value ? 61.2 g/m2 ?2D Left Ventricle ?? LVIDd ? 4.43 cm ?? (3.6-5.2) LVIDs ? 2.78 cm ?? (2.3-3.9) LVPW ?? LVPWd ?0.837 cm ? Ventricular Septum ?? IVSd ?0.78 cm ? Aorta ?? Ao Rtd ? 3.1 cm ?? (zsc 1.2)+ Ao Asc ? 2.6 cm ?? (zsc 0.7) Ratios ?? IVS Signed 07/26/2021 09:26 PM Riley Cantu M.D. Procedure Note Riley Cantu MD - 07/26/2021 Stress Echocardiography Report Pat.Name: LYNETTE CHRISTINAHIREN SNELL Pat.ID: [id number] .Date: 07/25/2021 Refer.: [id number], RILEY CANTU Exam Time: 10:45:00 AM Study Type:STRESS ECHO CONT DOP COLOR Height: 64in Weight: 170.64lb BSA: 1.83 m2 Age: 7 1980,41Y Sex: FEMALE BP: 139/88 HR: 77 bpm Sonogrphr: Bryon Horn RDCS Pat. Stat.:Outpatient CPT - 4: [id number] Reason for Study:Syncope/pre-syncope History / Clinical:Syncope Procedures: 2D, Doppler, Color Flow, Exercise Stress Echo, Definity was used to enhance endocardial definition. ++++++++++++++++++++++++++++++++++++ SUMMARY: ++++++++++++++++++++++++++++++++++++ 1. Patient performed Camron protocol for 7 [...] 4. Negative for ischemia by imagining criteria. abnormal exercise induced EKG response, no ischemia by imaging criteria. ++++++++++++++++++++++++++++++++++++ FINDINGS: ++++++++++++++++++++++++++++++++++++ LV: The left ventricular size is normal. The left ventricular systolic function is normal. Estimated left ventricular ejection fraction is 60-65%. No concentric left ventricular hypertrophy. The average E/e' is normal at <8. WM: Wall motion appears normal in all segments. RV: The right ventricular size is normal. Right ventricular systolic function is normal. HERIBERTO: No evidence of pericardial effusion. PA: The peak pulmonary artery systolic pressure is estimated to be approximately 28 + RAP mmHg. AV: The aortic valve is trileaflet. No evidence of aortic valve stenosis. No evidence of aortic valve regurgitation. MV: Structurally normal mitral valve. Trace mitral regurgitation. No evidence of mitral stenosis. PV: The pulmonic valve is normal There is trace pulmonic regurgitation TV: The tricuspid valve appears structurally normal. There is trace tricuspid regurgitation. ++++++++++++++++++++++++++++++++++++ STRESS: ++++++++++++++++++++++++++++++++++++ Baseline Vital Signs: Test Exercise Stress Echo Protocol Camron Rest HR 89 Duration 07:00Atropine Administered: 0 Rest BP 104/62 Max. Workload (METS) 8.3 Lake Score 2 Lake Score Group moderate risk Baseline Rhythm Sinus Rhythm, ST deviation and Moderate T-wave abnormality, T waves flipped upon standing pre stess Stress Test Results: HR achieved 169 Contrast Definity 1 ml Pred. Max. Heart Rate (100%) [address]: -1 mm @ 7 min @ HR 169 bpm % Target: 95 % Resolved 2 min into Recovery Phase Max BP 160/84 Max RPP [id number] Symptoms and Complications: Arrhythmias None Reason for Stopping Test: Fatigue, Patient request Stress Induced Symptoms: Generalyzed weakness, mostly lower extremeties Leads II, III, AVF, V4, V5, V6 ECG Findings: Ischemic S-T changes (>=1 mm) occurred with stress ++++++++++++++++++++++++++++++++++++ MEASUREMENTS: ++++++++++++++++++++++++++++++++++++ DOPPLER MV Forward Flow MV DeTm 158 ms MV pkE 85.7 cm/s (60-130) MV E/A 1.8 MV pkA 47.6 cm/s TV Regurg Flow TV pkPG 26 mmHg TV pkVel 257 cm/s (30-70)+* Lat E' Lat e 15.6 cm/s Lat E/E' Lat E/e 5.5 Med E' Med e 11.3 cm/s Med E/E' Med E/e 7.6 LV Mass 2D Value 112 g LV Mass Index 2D Value 61.2 g/m2 2D Left Ventricle LVIDd 4.43 cm (3.6-5.2) LVIDs 2.78 cm (2.3-3.9) LVPW LVPWd 0.837 cm Ventricular Septum IVSd 0.78 cm Aorta Ao Rtd 3.1 cm (zsc 1.2)+ Ao Asc 2.6 cm (zsc 0.7) Ratios IVS Signed 07/26/2021 09:26 PM Riley Cantu M.D. Riley Cantu MD ECHO Final Result documented in this encounter Visit Diagnoses Diagnosis Vasovagal syncope- Primary Syncope and collapse Vasovagal syncope Syncope and collapse documented in this encounter Care Teams Wound Care Technician Relationship Specialty Start Date End Date Sosa Haines MD [address] [place] [address] PCP - General INTERNAL MEDICINE 06/12/21 05/04/23 Riley Cantu MD [address] [address] Physician INTERVENTIONAL CARDIOLOGY 06/12/21 documented as of this encounter
--- OUTSIDE RECORDS SUMMARY | 2024-08-13 22:22 | XMS_ITS | Encounter Summary ---
Author Organization [facility] Address [address] [place] [address]. [place] [address] [place] [address] Care Team Providers Care Nursing Clinical Director Name Role Phone Sosa Haines MD Primary Care Provider [phone] Riley Cantu MD Unavailable [phone] Reason for Visit * Reason Comments Consult syncope Encounter Details Date Type Department Care Team (Latest Contact Info) Description 06/25/2021 1:00 PM CURRICULUM ASSISTANT PRINCIPAL Office Visit [facility] [place] [address] Riley Cantu MD [address] [place] [id number] Consult (syncope) Social History Tobacco Use Types Packs/Day Years Used Date Smoking Tobacco: Never Alcohol Use Standard Drinks/Week Comments Not Currently 0 (1 standard drink = 0.6 oz pur e alcohol) Comments Unknown Sex and Gender Information Value Date Recorded Sex Assigned at Not on file Legal Sex Female 9:24 PM CURRICULUM ASSISTANT PRINCIPAL Gender Identity Not on file Sexual Orientation Not on file 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 Unable to assess 06/25/2021 8:21 AM CURRICULUM ASSISTANT PRINCIPAL documented as of this encounter Last Filed Vital Signs Vital Sign Reading Time Taken Comments Blood Pressure 120/70 06/25/2021 1:06 PM CURRICULUM ASSISTANT PRINCIPAL Pulse 104 06/25/2021 1:06 PM CURRICULUM ASSISTANT PRINCIPAL Temperature - - Respiratory Rate 18 06/25/2021 1:06 PM CURRICULUM ASSISTANT PRINCIPAL Oxygen Saturation 99% 06/25/2021 1:06 PM CURRICULUM ASSISTANT PRINCIPAL Inhaled Oxygen Concentration - - Weight 77.7 kg (171 lb 6.4 oz) 06/25/2021 1:06 P M CURRICULUM ASSISTANT PRINCIPAL Height 162.6 cm (5' 4 ) 06/25/2021 1:06 PM CURRICULUM ASSISTANT PRINCIPAL Body Mass Index 29.42 06/25/2021 1:06 PM CURRICULUM ASSISTANT PRINCIPAL documented in this encounter Patient Instructions * Patient Instructions* Riley Cantu MD - 06/25/2021 1:00 PM CURRICULUM ASSISTANT PRINCIPAL Images from the original note were not [...] often if you need to sit or marketing sales manager 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 ?? Be sure to drink enough fluids, even if you do not feel thirsty. ?? Sit or lie down right away if you feel faint or dizzy. Take extra care to protect yourself from falls. Avoid driving when dizzy. If you feel dizzy while driving, pipe puller right away. ?? If you must walk [...] can I learn more? [employer] http://www.health.govt.nz/your-health/yiyjjxjndd-xft-qlachzbydi/zzkleilz-nkn-ggo nesses/dizziness NHS Choices http://www.nhs.uk/conditions/dizziness/pages/introduction.aspx Last Reviewed Date 2021-01-16 Consumer Information Use and Disclaimer This information is not specific medical advice and does not replace information you receive from your health care provider. This is only a brief summary of general information. It does NOT include all information about conditions, illnesses, injuries, tests, procedures, treatments, therapies, discharge instructions or life-style choices that may apply to you. You must talk with your health care provider for complete information about your health and treatment options. This information should not be used to decide whether or not to accept your health care provider???s advice, instructions or recommendations. Only your health care provider has the knowledge and training to provide advice that is right for you. Copyright Copyright ?? 2020 [employer]. and its affiliates and/or licensors. All rights reserved. ICULUM ASSISTANT PRINCIPAL documented in this encounter Progress Notes * Riley Cantu MD - 06/25/2021 1:00 PM CST Cardiology Clinic Note PATIENT NAME: Christina Pinto : 1980 Primary Care Physician: MD Sosa GLASS MD REASON FOR VISIT Syncope HISTORY OF PRESENT ILLNESS Christina Curiel is a pleasant 41-year-old yr old patient of Dr.PAVI WHITLEY MD here for evaluation of syncope. Had fainted in march 2021 (had fever, due to strep throat, collapsed in the shower), recovered well. 2 weeks ago, she got up from being asleep, passed out, 30-45seconds, came around well, no chest pain, no incontinence, (felt her vision coning in, felt funny in the arms, and passed out) recovered well without any chest pain or seizure-like activity. In March 2020 she had COVID illness treated at home, her son-13yrs old, was diagnosed with Covid in May 2021. She notes that off late-'feels fluttery' in the chest, when I am stressed out, brief, resolved on its own, wearing event monitor for 30days from her primary medical doctor. Denies any typical cardiac type chest pain, no shortness of breath, no PND, orthopnea, swelling in the legs, or sudden weight gain. Medication compliance and tolerance are good. No constructed exercise regimen, exercise capacity estimated greater than 4 leg equivalents. No typical claudication-like pain, no symptoms suggestive of venous insufficiency, no ulcers. No history of WA/PCI/CVA/CAD/renal failure had a healthy childhood except emergent appendectomy, did not have syncope at that time. Paternal grandmother had a fatal WA in 42. No family history of sudden . 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 PROBLEM LIST Vasovagal syncope (primary encounter diagnosis) H/o gastric bypass ASSESSMENT AND PLAN Syncope-likely vasovagal. We discussed symptomatology and management options. At this point will await that event monitor, obtain TSH and other blood work, and await his stress echo. Further management will be based on that. Symptom education done. She will seek help if needed. Palpitations-mild sinus tachycardic today, it settled down as she eased into the clinical consult. Await event monitor. BP and pulse log at work within normal limits, continue monitoring. Symptom education done. History of gastric bypass-continue management per primary medical team. RECOMMENDATIONS Orders Placed This Encounter ??? LIPID PANEL ??? TSH ??? Vitamin D, 25 OH ??? VITAMIN B-12 ??? USE STRESS ECHO BP log Continue current medications We will call her with the results of the testing and formulate further management plan. Return in about 1 year (around 06/25/2022). PAST HISTORY Past Medical History: Diagnosis Date [...] of breath and snoring. Cardiovascular: See HPI. Positive for palpitations. Gastrointestinal: Negative for blood in stool and melena. Genitourinary: Negative for dysuria. Musculoskeletal: Negative for myalgias and new or worsening joint stiffness/pain. Skin: Negative for rash. Neurological: Positive for dizziness. Negative for tingling/numbness and focal weakness. Endo/Heme/Allergies: Negative for new or significant bruising/bleeding and polydipsia. Psychiatric/Behavioral: Positive for nervous/anxious. Negative for depression and new or significant memory loss. PHYSICAL EXAMINATION Wt Readings from Last 3 Encounters: 06/25/21 77.7 kg (171 lb 6.4 oz) Body mass index is 29.42 kg/m??. Filed Vitals: 06/25/21 1306 BP: 120/70 Pulse: 104 Resp: 18 SpO2: 99% Weight: 77.7 kg (171 lb 6.4 oz) Height: 5' 4 (1.626 m) Vitals: 06/25/21 1306 BP: 120/70 Pulse: 104 Physical Exam Vitals reviewed. Constitutional: Appearance: Normal appearance. HENT: Head: [...] and Affect: Mood normal. Behavior: Behavior normal. BP/pulse at work wnl LABORATORY RESULTS ECG/TELEMETRY osh- sr/qtc wnl IMAGING CT head- no acute abnormalities Signed KELBY BABB LPN 07/01/2021 CC: MD LINDSEY Ventura MD ICULUM ASSISTANT PRINCIPAL documented in this encounter Plan of Treatment Not on file documented as of this encounter Visit Diagnoses Diagnosis Vasovagal syncope- Primary Syncope and collapse H/O gastric bypass Bariatric surgery status documented in this encounter Care Teams Nursing Clinical Director Relationship Specialty Start Date End Date Sosa Haines MD [address] [place] [address] PCP - General INTERNAL MEDICINE 06/12/21 05/04/23 Riley Cantu MD [address] [facility] [address] [place] [address] Physician INTERVENTIONAL CARDIOLOGY 06/12/21 documented as of this encounter
--- OUTSIDE RECORDS SUMMARY | 2024-08-13 22:22 | XMS_ITS | Encounter Summary ---
Author Organization [facility] Address [facility] [place] [address] [place] [address] Care Team Providers Care Slack Line Yarder Name Role Phone Sosa Haines MD Primary Care Provider [phone] Riley Cantu MD Unavailable [phone] Encounter Details Date Type Department Care Team (Latest Contact Info) Description 11/06/2021 9:00 AM CDT - 11/06/2021 11:59 PM CDT Hospital Encounter [facility] [address] [place] [address] Riley Cantu MD [address] [facility] [address] [address] Discharge Disposition: Home or Self Care (Routine Discharge) Social History Tobacco Use Types Packs/Day Years Used Date Smoking Tobacco: Never Alcohol Use Standard Drinks/Week Comments Not Currently 0 (1 standard drink = 0.6 oz pur e alcohol) Comments Unknown Sex and Gender Information Value Date Recorded Sex Assigned at Not on file Legal Sex Female 9:24 PM CAR RENTAL AGENT Gender Identity Not on file Sexual Orientation Not on file 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 CORRELATION TO CLINICAL HISTORY AND PRESENTATION RECOMMENDED. 11/06/2021 9:07 AM CDT Riley Cantu MD LABORATORY Final Result [facility] [address] [place] [address], * LIPID PANEL (11/06/2021 9:07 AM CDT) CHOLESTEROL 120 <200.0 MG/DL 11/06/2021 10:06 AM CDT [facility] TRIGLYCERIDES 84 <150 MG/DL 11/06/2021 10:06 AM CDT [facility] HDL 60 >40.0 MG/DL 11/06/2021 10:06 AM CDT [facility] LDL (CALCULATED) 43 <100 MG/DL 03/31/20 22 10:06 AM CDT [facility] NON HDL CHOLESTEROL 60 <130 MG/DL 11/06 10:06 AM T [facility] CHOL/HDL RATIO 2.0 0.0 - 4.5 11/06/2021 10:06 AM [facility] VLDL CALCULATION 17 5 - 55 MG/DL 11/06/2021 10:06 AM [facility] LIPID INTERPRETATION 11/06/2021 10:06 AM T [facility] Comment: NIH CONCENSUS REPORT RECOMMENDATIONS: [...] ? >=160 ?>=130 11/06/2021 9:07 AM CDT Riley Cantu MD LABORATORY Final Result Performing Organization Address City/State/[facility] Co de Phone Number [facility] [address] [place] [address], documented in this encounter Visit Diagnoses Diagnosis Abnormal EKG Nonspecific abnormal electrocardiogram (ECG) (EKG) documented in this encounter Care Teams Slack Line Yarder Relationship Specialty Start Date End Date Sosa Haines MD [address] [place] [address] PCP - General INTERNAL MEDICINE 06/12/21 05/04/23 Riley Cantu MD [address] [facility] [address] [place] [address] Physician INTERVENTIONAL CARDIOLOGY 06/12/21 documented as of this encounter
--- OUTSIDE RECORDS SUMMARY | 2024-08-13 22:22 | XMS_ITS | Encounter Summary ---
Author Organization [facility] Address [address] [place] [address]. [place] [address] [place] [address] Care Team Providers Care Freezer Laboratory Technician Name Role Phone Sosa Haines MD Primary Care Provider [phone] Riley Cantu MD Unavailable [phone] Lei Garcia MD Primary Care Provider [phone] Encounter Details Date Type Department Care Team (Late st Contact Info) Description 10/23/2017 Abstract [facility] CONVERSION [address] [place] [address] , Generic ConversionMD Social History Tobacco Use Types Packs/Day Years Used Date Smoking Tobacco: Never Assessed Comments Unknown Sex and Gender Information Value Date Recorded Sex Assigned at Not on file Legal Sex Female 9:24 PM ORACLE APPLICATION ARCHITECT Gender Identity Not on file Sexual Orientation Not on file documented as of this encounter Plan of Treatment Not on file documented as of this encounter Visit Diagnoses Not on filedocumented in this encounter Additional Health Concerns Infection Onset Date Last Indicated Resolved Time COVID-19 Rule Out 09/23/2022 09/23/2022 09/23/2022 10:13 AM ORACLE APPLICATION ARCHITECT COVID-19 Rule Out 10/30/2022 10/30/2022 10/30/2022 10:27 AM CDT documented as of this encounter Care Teams Freezer Laboratory Technician Relationship Specialty Start Date End Date Sosa Haines MD [address] [place] [address] PCP - General INTERNAL MEDICINE 06/12/21 05/04/23 Lei Garcia MD [address] [place] [address], [facility] [address] [place] [address] PCP - General HOSPITALIST 05/05/23 Riley Cantu MD [address] [place] [address], [facility] [address] [place] [address] Physician INTERVENTIONAL CARDIOLOGY 06/12/21 documented as of this encounter
--- OUTSIDE RECORDS SUMMARY | 2024-08-13 22:22 | XMS_ITS | Clinical Summary ---
Author Organization [facility] Address [address] [place] [address]. [place] [address] [place] [address] Care Team Providers Care City Route Driver Name Role Phone Riley Cantu MD Unavailable [phone] Lei Garcia MD Primary Care Provider Allergies Active Allergy Reactions Criticality Noted Date Comments Amoxicillin Hives 06/16/2021 Penicillins Hives 06/16/2021 Bupropion Hives 06/16/2021 Medications cyanocobalamin 1000 MCG/ML injection Inject into the muscle monthly. 1 Active FEROSUL 325 (65 Fe) MG tablet TAKE 1 TABLET BY MOUTH TWICE DAILY AFTER A MEAL 2 Active oxyCODONE-aceta minophen (PERCOCET) 5-325 MG tabletIndicatio ns:Acute Pain < 7 Day Supply Take 1 tablet by mouth every 4 (four) hours as needed for Pain. Indications: Acute Pain < 7 Day Supply 10 tablet 4 Active WEGOVY 2.4 mg/dose injection (PEN) Inject 2.4 mg into the skin once a week. Active levocetirizine (XYZAL ALLERGY 24HR) 5 MG tablet Take 1 tablet (5 mg total) by mouth. Active oxyCODONE-aceta minophen (PERCOCET) 5-325 MG tabletIndicatio ns:Acute Pain < 3 Day Supply Take 1-2 tablets by mouth every 4 (four) hours as needed for Pain. Indications: Acute Pain < 3 Day Supply For Severe Pain 8 tablet 4 Active naloxone (NARCAN) 4 MG/0.1ML nasal spray 1 spray by Nasal route as needed for Opioid reversal. may repeat every 2 to 3 minutes in alternating nostrils until medical assistance becomes available 1 each 4 02/03/20 25 Active Active Problems Problem Noted Date Diagnosed Date Abnormal EKG 10/06/2021 Vasovagal syncope 07/07/2021 Immunizations Name Administration Dates Next Due Dtp (Generic) 03/17/1984, 3,1979,1979,05/09 Influenza Adult (Generic) 05/07/2022 MMR (MMRII) 03/20/1993,03/19/1983 Pneumococcal (Pneumovax 23) 04/06/2012 Polio Opv (Generic) 03/17/1984, 3,1979,1979,05/09 Td (TDVAX) 03/20/1993 Tdap (Generic) 04/04/2016,12/09/2014 Family History Medical History Relation Comments Diabetes Father Stroke Father Heart Attack Maternal Grandmother Breast Cancer Mother Diabetes Mother brain cancer Mother Cancer Other Colon Cancer Other Diabetes Other Hypertension Other Kidney Disease Other Stroke Other cardia disorder Other Thyroid Disease Sister Relation Status Comments Father Maternal Grandfather Maternal Grandmother Mother Other Alive Paternal Grandfather Paternal Grandmother Sister Social History Tobacco Use Types Packs/Day Years Used Date Smoking Tobacco: Never Tobacco Cessation:Counseling Given: No Alcohol Use Standard Drinks/Week Comments Yes 0 (1 standard drink = 0.6 oz pur e alcohol) socially PHQ-2 Answer Date Recorded Patient Health Questionnaire-2 Score 0 10/30/2022 Comments No Sex and Gender Information Value Date Recorded Sex Assigned at Not on file Legal Sex Female 9:24 PM FILTER CLEANER Gender Identity Not on file Sexual Orientation Not on file 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 Not on file Not on file Last Filed Vital Signs Vital Sign Reading [...] Mass Index 27.82 02/03/2024 7:06 AM CDT Plan of Treatment Health Maintenance Due Date Last Done Comments Cervical Cancer Screening Pap Smear (Age 30 to 64) Every 3 Years 1979 Colorectal Cancer Screening Colonoscopy (10 Years) 1979 Annual Physical 1982 Hepatitis C 1997 Hepatitis B Vaccines (1 of 3 - 19+ 3-dose series) 1998 Cervical Cancer Screening Pap with HPV Testing (Age 30 to 64) Every 5 Years 2009 Cervical Cancer Screening with HPV 2009 Mammogram Screening 2019 COVID-19 Vaccine ( season) 2024 Influenza Adult (#1) 2024 05/04/2023, 05/07/20 22 DTaP, Tdap and Td Vaccines (8 - Td or Tdap) 04/04/2026 04/04/2016, 12/09/2014, 03/20/1993, Additional history exists Pneumococcal Vaccine: Pediatrics (0 to 5 Years) and At-Risk Patients (6 to 64 Years) Aged Out 04/06/2012 No longer eligible based on patient's age to complete this topic HPV Vaccines Aged Out No longer eligi ble based on patient's age to complete this topic Meningococcal Vaccine Aged Out No betina edwnia eligible based on patient's age to complete this topic RSV Immunizations Under 20 Months Aged Out No longer eligible based on patient's age to complete this topic Medical Devices Implanted Type Area Rooming House Inspector Device Identifier Shelf Expiration Date Model / Serial / Lot K Wire Hailey 6 In X .045 In - [id number] Implanted:Qty: 1 on 02/03/2024 by Soniya Barnes DPM at [facility] Wire Left: [facility] [employer] [id number] / [id number] / Insurance Deal Decor OPEN ACCESS [facility] Care Teams City Route Driver Relationship Specialty Start Date End Date Lei Garcia MD [address] , [facility] [address] [place], [place] [id number] PCP - General HOSPITALIST 05/05/23 Riley Cantu MD [address] , [facility] [address] [place], [place] [id number] Physician INTERVENTIONAL CARDIOLOGY 06/12/21
--- OUTSIDE RECORDS SUMMARY | 2024-08-13 22:22 | XMS_ITS | Encounter Summary ---
Author Organization [facility] Address [facility] [place] [address] [place] [address] Care Team Providers Care Saute Chef Name Role Phone Riley Cantu MD Unavailable [phone] Lei Garcia MD Primary Care Provider [phone] Encounter Details Date Type Department Care Team (Latest Contact Info) Description 02/17/2024 Travel Social History Tobacco Use Types Packs/Day Years Used Date Smoking Tobacco: Never Alcohol Use Standard Drinks/Week Comments Yes 0 (1 standard drink = 0.6 oz pur e alcohol) socially PHQ-2 Answer Date Recorded Patient Health Questionnaire-2 Score 0 10/30/2022 Comments No Sex and Gender Information Value Date Recorded Sex Assigned at Not on file Legal Sex Female 9:24 PM SCRATCHER Gender Identity Not on file Sexual Orientation Not on file 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
--- OUTSIDE RECORDS SUMMARY | 2024-08-13 22:22 | XMS_ITS | Encounter Summary ---
Author Organization [facility] Address [address] [place] [address]. [place] [address] [place] [address] Care Team Providers Care Clinical Systems Analyst Name Role Phone Sosa Haines MD Primary Care Provider [phone] Riley Cantu MD Unavailable [phone] Reason for Visit * Reason Onset Date Comments Schedule Test 07/08/2021 Encounter Details Date Type Department Care Team ([facility] st Contact Info) Description 07/08/[address] 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 Unable to assess 06/25/2021 8:21 AM FLEET MAINTENANCE FOREMAN documented as of this encounter Progress Notes * Braxton Matute LPN - 07/08/2021 2:39 PM CST Spoke to Christina, she is aware that I have her scheduled for a stress echo in [place] on 07/25/21 @ 10:30am (she requested this date). I will mail instructions with her annual appt letter. T MAINTENANCE FOREMAN documented in this encounter Plan of Treatment Not on file documented as of this encounter Visit Diagnoses Not on filedocumented in this encounter Care Teams Clinical Systems Analyst Relationship Specialty Start Date End Date Sosa Haines MD [address] [place] [address] PCP - General INTERNAL MEDICINE 06/12/21 05/04/23 Riley Cantu MD [address] [facility] [address] [place] [address] Physician INTERVENTIONAL CARDIOLOGY 06/12/21 documented as of this encounter
--- OUTSIDE RECORDS SUMMARY | 2024-08-13 22:22 | XMS_ITS | Encounter Summary ---
Author Organization [facility] Address Count includes the [facility] [place] [address] [place] [address] Care Team Providers Care Blueprint Blocker Name Role Phone Riley Cantu MD Unavailable [phone] Lei Garcia MD Primary Care Provider [phone] Encounter Details Date Type Department Care Team (Latest Contact Info) Description 05/05/2023 Travel Social History Tobacco Use Types Packs/Day Years Used Date Smoking Tobacco: Never Alcohol Use Standard Drinks/Week Comments Not Currently 0 (1 standard drink = 0.6 oz pur e alcohol) PHQ-2 Answer Date Recorded Patient Health Questionnaire-2 Score 0 10/30/2022 Comments Unknown Sex and Gender Information Value Date Recorded Sex Assigned at Not on file Legal Sex Female 9:24 PM PRESS CLIPPINGS CUTTER AND PASTER Gender Identity Not on file Sexual Orientation Not on file 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
--- OUTSIDE RECORDS SUMMARY | 2024-08-13 22:22 | XMS_ITS | Encounter Summary ---
Author Organization [facility] Address [address] [place] [address]. [place] [address] [place] [address] Care Team Providers Care Jacquard Loom Heddles Tier Name Role Phone Sosa Haines MD Primary Care Provider [phone] Riley Cantu MD Unavailable [phone] Reason for Visit * Reason Onset Date Comments Lab Order 10/14/2021 Encounter Details Date Type Department Care Team ([facility] st Contact Info) Description 10/14/2021 Telephone [facility] [address] [place] [address] Riley Cantu MD [address] [facility] [address] [place] [address] Lab Order Social History Tobacco Use Types Packs/Day Years Used Date Smoking Tobacco: Never Alcohol Use Standard Drinks/Week Comments Not Currently 0 (1 standard drink = 0.6 oz pur e alcohol) Comments Unknown Sex and Gender Information Value Date Recorded Sex Assigned at Not on file Legal Sex Female 9:24 PM CHILD CARE GIVER Gender Identity Not on file Sexual Orientation Not on file 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 No / Unsure 11/06/2021 9:02 AM CDT documented as of this encounter Progress Notes * Alissa Lancaster RN - 11/07/2021 10:18 AM CDT Labs have been completed and are in the chart * Adrianna Amaya RN - 10/31/2021 8:52 AM CDT Call pt, no answer, LM to call back. Repeat letter sent * Alissa [place] RN - 10/21/2021 2:29 PM CDT Mailed pt orders to have completed and to have the results faxed back to the office. * Adrianna Amaya RN - 10/20/2021 1:36 PM CDT Called pt and LM to call back. * Alissa [place] RN - 10/16/2021 10:[address] Haines's office and pt did not have labs completed at his office. Will call pt to see where she had labs done. Left a message with Christina to see if she got her labs drawn and where. If she has not gotten them done, need to find out where she will get them drawn at. D CARE GIVER * Adrianna Amaya RN - 10/14/2021 11:38 AM CST Call pcp and see if labs were completed there. If not call pt and ask where she had/will have them completed D CARE GIVER * Adrianna Amaya RN - 10/14/2021 11:38 AM CST ----- Message from Alissa Lancaster RN sent at 10/07/2021 2:52 PM CHILD CARE GIVER ----- Regarding: f/u labs from 10/06/21 OV - lipid, TSH D CARE GIVER documented in this encounter Plan of Treatment Not on file documented as of this encounter Visit Diagnoses Not on filedocumented in this encounter Care Teams Jacquard Loom Heddles Tier Relationship Specialty Start Date End Date Sosa Haines MD [address] [place] [address] PCP - General INTERNAL MEDICINE 06/12/21 05/04/23 Riley Cantu MD [address] [facility] [address] [address] Physician INTERVENTIONAL CARDIOLOGY 06/12/21 documented as of this encounter
--- OUTSIDE RECORDS SUMMARY | 2024-08-13 22:23 | XMS_ITS | Encounter Summary ---
Author Organization [facility] Address [address] [place] [address]. [place] [address] [place] [address] Care Team Providers Care Mainspring Torque Tester Name Role Phone Unavailable Primary Care Provider Unavailabl e Encounter Details Date Type Department Care Team (Late st Contact Info) Description 10/12/2013 Abstract [facility] Nutrition Services [address] [place] [address] Social History Tobacco Use Types Packs/Day Years Used Date Smoking Tobacco: Never Assessed Comments Unknown Sex and Gender Information Value Date Recorded Sex Assigned at Not on file Legal Sex Female 9:24 PM PRINCIPAL ASSOCIATE Gender Identity Not on file Sexual Orientation Not on file documented as of this encounter Plan of Treatment Not on file documented as of this encounter Visit Diagnoses Diagnosis Morbid obesity (CMS/HCC HHS/HCC) Morbid obesity documented in this encounter
--- OUTSIDE RECORDS SUMMARY | 2024-08-13 22:23 | XMS_ITS | Encounter Summary ---
Author Organization [facility] Address [address] [place] [address]. [place] [address] [place] [address] Care Team Providers Care Barrel Loader And Cleaner Name Role Phone Unavailable Primary Care Provider Unavailabl e Encounter Details Date Type Department Care Team (Late st Contact Info) Description 05/06/2012 Abstract [facility] [address] [place] [address] Social History Tobacco Use Types Packs/Day Years Used Date Smoking Tobacco: Never Assessed Comments Unknown Sex and Gender Information Value Date Recorded Sex Assigned at Not on file Legal Sex Female 9:24 PM PAIN MEDICINE PHYSICIAN Gender Identity Not on file Sexual Orientation Not on file documented as of this encounter Plan of Treatment Not on file documented as of this encounter Visit Diagnoses Diagnosis 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
--- OUTSIDE RECORDS SUMMARY | 2024-08-13 22:23 | XMS_ITS | Encounter Summary ---
Author Organization [facility] Address [address] [place] [address]. [place] [address] [place] [address] Care Team Providers Care Nitric Acid Plant Operator Name Role Phone Unavailable Primary Care Provider Unavailabl e Encounter Details Date Type Department Care Team (Late st Contact Info) Description 12/28/2011 Abstract [facility] [address] [place] [address] Social History Tobacco Use Types Packs/Day Years Used Date Smoking Tobacco: Never Assessed Comments Unknown Sex and Gender Information Value Date Recorded Sex Assigned at Not on file Legal Sex Female 9:24 PM LITIGATION ASSOCIATE Gender Identity Not on file Sexual Orientation Not on file documented as of this encounter Plan of Treatment Not on file documented as of this encounter Visit Diagnoses Diagnosis Morbid obesity (CMS/HCC HHS/HCC) Morbid obesity documented in this encounter
--- OUTSIDE RECORDS SUMMARY | 2024-08-13 22:23 | XMS_ITS | Encounter Summary ---
Author Organization [facility] Address [address] [place] [address]. [place] [address] [place] [address] Care Team Providers Care Director Cpg Name Role Phone Unavailable Primary Care Provider Unavailabl e Encounter Details Date Type Department Care Team (Late st Contact Info) Description 09/14/[address] [facility] [address] [place] [address] Social History Tobacco Use Types Packs/Day Years Used Date Smoking Tobacco: Never Assessed Comments Unknown Sex and Gender Information Value Date Recorded Sex Assigned at Not on file Legal Sex Female 9:24 PM MICROSYSTEMS ENGINEER Gender Identity Not on file Sexual Orientation Not on file documented as of this encounter Plan of Treatment Not on file documented as of this encounter Visit Diagnoses Diagnosis Morbid obesity (CMS/HCC HHS/[facility]) Morbid obesity documented in this encounter
--- OUTSIDE RECORDS SUMMARY | 2024-08-13 22:23 | XMS_ITS | Encounter Summary ---
Author Organization [facility] Address [address] [place] [address]. [place] [address] [place] [address] Care Team Providers Care Multiple Games Dealer Name Role Phone Unavailable Primary Care Provider Unavailabl e Encounter Details Date Type Department Care Team (Late st Contact Info) Description 01/01/[address] [facility] [address] [place] [address] Social History Tobacco Use Types Packs/Day Years Used Date Smoking Tobacco: Never Assessed Comments Unknown Sex and Gender Information Value Date Recorded Sex Assigned at Not on file Legal Sex Female 9:24 PM SKEIN TIER Gender Identity Not on file Sexual Orientation Not on file documented as of this encounter Plan of Treatment Not on file documented as of this encounter Visit Diagnoses Diagnosis Morbid obesity (CMS/HCC HHS/[facility]) Morbid obesity documented in this encounter
--- OUTSIDE RECORDS SUMMARY | 2024-08-13 22:23 | XMS_ITS | Encounter Summary ---
Author Organization [facility] Address [address] [place] [address]. [place] [address] [place] [address] Care Team Providers Care Automobile Radio Repairer Name Role Phone Unavailable Primary Care Provider Unavailabl e Encounter Details Date Type Department Care Team (Late st Contact Info) Description 01/21/2012 Abstract [facility] Nutrition Services [address] [place] [address] Social History Tobacco Use Types Packs/Day Years Used Date Smoking Tobacco: Never Assessed Comments Unknown Sex and Gender Information Value Date Recorded Sex Assigned at Not on file Legal Sex Female 9:24 PM FUR FLOOR WORKER Gender Identity Not on file Sexual Orientation Not on file documented as of this encounter Plan of Treatment Not on file documented as of this encounter Visit Diagnoses Diagnosis Morbid obesity (CMS/HCC HHS/HCC) Morbid obesity documented in this encounter
--- OUTSIDE RECORDS SUMMARY | 2024-08-13 22:23 | XMS_ITS | Encounter Summary ---
Author Organization [facility] Address [address] [place] [address]. [place] [address] [place] [address] Care Team Providers Care Aco Coordinator Name Role Phone Unavailable Primary Care Provider Unavailabl e Encounter Details Date Type Department Care Team (Late st Contact Info) Description 07/04/2012 Abstract [facility] Nutrition Services [address] [place] [address] Social History Tobacco Use Types Packs/Day Years Used Date Smoking Tobacco: Never Assessed Comments Unknown Sex and Gender Information Value Date Recorded Sex Assigned at Not on file Legal Sex Female 9:24 PM FACTORY MACHINE COMPUTER OPERATOR Gender Identity Not on file Sexual Orientation Not on file documented as of this encounter Plan of Treatment Not on file documented as of this encounter Visit Diagnoses Diagnosis Morbid obesity (CMS/HCC HHS/HCC) Morbid obesity documented in this encounter
--- OUTSIDE RECORDS SUMMARY | 2024-08-13 22:23 | XMS_ITS | Encounter Summary ---
Author Organization [facility] Address [address] [place] [address]. [place] [address] [place] [address] Care Team Providers Care Bromination Equipment Operator Name Role Phone Unavailable Primary Care Provider Unavailabl e Encounter Details Date Type Department Care Team (Late st Contact Info) Description 04/05/2012 Abstract [facility] [address] [place] [address] Social History Tobacco Use Types Packs/Day Years Used Date Smoking Tobacco: Never Assessed Comments Unknown Sex and Gender Information Value Date Recorded Sex Assigned at Not on file Legal Sex Female 9:24 PM CARBON BRUSH MAKER Gender Identity Not on file Sexual Orientation Not on file documented as of this encounter Plan of Treatment Not on file documented as of this encounter Visit Diagnoses Diagnosis Morbid obesity (CMS/HCC HHS/HCC) Morbid obesity documented in this encounter
--- OUTSIDE RECORDS SUMMARY | 2024-08-13 22:23 | XMS_ITS | Encounter Summary ---
Author Organization [facility] Address [address] [place] [address]. [place] [address] [place] [address] Care Team Providers Care Mechanical Engineering Coop Name Role Phone Unavailable Primary Care Provider Unavailabl e Encounter Details Date Type Department Care Team (Late st Contact Info) Description 12/08/2014 Abstract [facility] [address] [place] [address] Loren Tello MD [address] [place] [phone] Social History Tobacco Use Types Packs/Day Years Used Date Smoking Tobacco: Never Assessed Comments Unknown Sex and Gender Information Value Date Recorded Sex Assigned at Not on file Legal Sex Female 9:24 PM MARINE FISHERIES TECHNICIAN Gender Identity Not on file Sexual Orientation Not on file documented as of this encounter Plan of Treatment Not on file documented as of this encounter Visit Diagnoses Diagnosis Advanced maternal age, delivered Elderly multigravida, delivered with or without mention of antepartum condition documented in this encounter
--- OUTSIDE RECORDS SUMMARY | 2024-08-13 22:23 | XMS_ITS | Encounter Summary ---
Author Organization [facility] Address [address] [place] [address]. [place] [address] [place] [address] Care Team Providers Care Contract Preparer Name Role Phone Unavailable Primary Care Provider Unavailabl e Encounter Details Date Type Department Care Team (Late st Contact Info) Description 06/14/[address] 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
--- OUTSIDE RECORDS SUMMARY | 2024-08-13 22:23 | XMS_ITS | Encounter Summary ---
Author Organization [facility] Address [address] [place] [address]. [place] [address] [place] [address] Care Team Providers Care Project Manager Retail Name Role Phone Unavailable Primary Care Provider Unavailabl e Encounter Details Date Type Department Care Team (Late st Contact Info) Description 04/03/2013 Abstract [facility] [address] [place] [address] Social History Tobacco Use Types Packs/Day Years Used Date Smoking Tobacco: Never Assessed Comments Unknown Sex and Gender Information Value Date Recorded Sex Assigned at Not on file Legal Sex Female 9:24 PM DOLL WIG[employer] HACKLER Gender Identity Not on file Sexual Orientation Not on file documented as of this encounter Plan of Treatment Not on file documented as of this encounter Visit Diagnoses Diagnosis Morbid obesity (CMS/HCC HHS/HCC) Morbid obesity documented in this encounter
--- OUTSIDE RECORDS SUMMARY | 2024-08-13 22:23 | XMS_ITS | Encounter Summary ---
Author Organization [facility] Address [address] [place] [address]. [place] [address] [place] [address] Care Team Providers Care Paper Reeler Name Role Phone Unavailable Primary Care Provider Unavailabl e Encounter Details Date Type Department Care Team (Late st Contact Info) Description 01/01/[address] 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
--- OUTSIDE RECORDS SUMMARY | 2024-08-13 22:23 | XMS_ITS | Encounter Summary ---
Author Organization [facility] Address [address] [place] [address]. 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
--- OUTSIDE RECORDS SUMMARY | 2024-08-13 22:23 | XMS_ITS | Encounter Summary ---
Author Organization [facility] Address [address] [place] [address]. 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
== END 2024-08-06 18:39 | disposition home or self-care (01) ==
PROVIDERS: Emergency Provider Nurse Practitioner Family; PCP Family Medicine
DX: J06.9 Acute upper respiratory infection, unspecified (principal); Z20.822 Contact with and (suspected) exposure to COVID-19
CPT/HCPCS: 87081; 87426; 87804; 87880; 99203; G0463